=== PATIENT | male | born 1950 | race Caucasian/White ===

== ENCOUNTER 2016-10-22 20:22 | Inpatient (IN) | payer OTHER ==
[2016-10-22 20:53] VITALS: BMI 31.1
--- NOTE | 2016-10-22 20:53 | HP ---
CIWA Score - CIWA Score Nausea/Vomitin Muscle Tremors: 3 Anxiety: 3 Agitation: 2 Paroxysmal Sweats: 2 Orientation: 0-Oriented Tacttile Disturbances: 0-None Auditory Disturbances: 0-None Visual Disturbances: 0-None Headache: 1-Very Mild CIWA-Ar Total Score: 13 Admission ROS BHS - HPI Chief Complaint: WITHDRAWAL SYMPTOMS Allergies/Adverse Reactions: Allergies Allergy/AdvReac Type Severity Reaction Status Date / Time Penicillins Allergy Severe Swelling Verified 10/22/16 21:39 History of Present Illness: 66 Y.O. MAN WITH AN EXTENSIVE HISTORY OF ALCOHOL DEPENDENCE IS SEEKING DETOX. HE HAS COMPLETED MULTIPLE DETOXES AND REHABS AND STATES HE HAS HAD A HISTORY OF 11 YEARS OF SOBRIETY. Exam Limitations: No Limitations - Ebola screening Have you traveled outside of the country in the last 21 days: No (N) Have you had contact with anyone from an Ebola affected area: No Do you have a fever: No - Review of Systems Constitutional: Night Sweats EENT: reports: No Symptoms Reported Respiratory: reports: Cough, Wheezing, Productive cough Cardiac: reports: No Symptoms Reported GI: reports: No Symptoms Reported : reports: No Symptoms Reported Musculoskeletal: reports: No Symptoms Reported Integumentary: reports: No Symptoms Reported Neuro: reports: Tremors Endocrine: reports: No Symptoms Reported Hematology: reports: No Symptoms Reported Psychiatric: reports: Orientated x3, Depressed Other Systems: Reviewed and Negative Patient History - Patient Medical History Hx Anemia: No Hx Asthma: No Hx Chronic Obstructive Pulmonary Disease (COPD): Yes Hx Cancer: No Hx Cardiac Disorders: No Hx Congestive Heart Failure: No Hx Hypertension: No Hx Hypercholesterolemia: No Hx Pacemaker: No HX Cerebrovascular Accident: No Hx Seizures: No Hx Dementia: No Hx Diabetes: No Hx Gastrointestinal Disorders: No Hx Liver Disease: No Hx Genitourinary Disorders: No Hx Sexually Transmitted Disorders: No Hx Renal Disease (ESRD): No Hx Thyroid Disease: No Hx Human Immunodeficiency Virus (HIV): No (12/22 LAST NEGATIVE) Hx Hepatitis C: No Hx Depression: Yes Hx Suicide Attempt: No Hx Bipolar Disorder: No Hx Schizophrenia: No - Patient Surgical History Past Surgical History: Yes Hx Neurologic Surgery: No Hx Cataract Extraction: No Hx Cardiac Surgery: No Hx Lung Surgery: No Hx Breast Surgery: No Hx Breast Biopsy: No Hx Abdominal Surgery: No Hx Appendectomy: No Hx Cholecystectomy: No Hx Genitourinary Surgery: No Hx Section: No Hx Orthopedic Surgery: Yes (Right knee replacement in 12/17) Anesthesia Reaction: No - PPD History Previous Implant?: Yes Documented Results: Negative w/proof Implanted On Prior [facility] Admission?: Yes Date: 03/21/16 Results: 0MM PPD to be Administered?: No - Reproductive History Patient is a Female of Child Bearing Age (11 -55 yrs old): No - Smoking Cessation Smoking history: Current every day smoker Have you smoked in the past 12 months: Yes Aproximately how many cigarettes per day: 8 Cigars Per Day: 0 Hx Chewing Tobacco Use: No Initiated information on smoking cessation: Yes 'Breaking Loose' booklet given: 10/22/16 - Substance & Tx. History Hx Alcohol Use: Yes Hx Substance Use: No Substance Use Type: Alcohol Hx Substance Use Treatment: Yes (DETOX AND REHAB ) - Substances Abused Alcohol Route: Oral Frequency: Daily Amount used: 2 GLASS OF WINE; NIPS OF LIQUOR; 5-6 12 OZ OF BEER Age of first use: 16 Date of Last Use: 10/22/16 Family Disease History - Family Disease History Family Disease History: Heart Disease: Grandparent (ALCOHOLISM), Mother, CA: Grandparent, Respiratory: Father (COPD), Other: Grandparent, Sister Admission Physical Exam BHS - Vital Signs Vital Signs: Last Vital Signs Temp Pulse Resp BP Pulse Ox 96.4 F L 90 20 115/79 10/22/16 20:44 10/22/16 20:44 10/22/16 20:44 10/22/16 20:44 - Physical General Appearance: Yes: Disheveled, Tremorous HEENTM: Yes: Hearing grossly Normal, Normal ENT Inspection, Normocephalic, Normal Voice Respiratory: Yes: No Respiratory Distress, No Accessory Muscle Use, Wheezing, Expiration Neck: Yes: Within Normal Limits, Trachea in good position Breast: Yes: Breast Exam Deferred Cardiology: Yes: Regular Rhythm, Regular Rate, S1, S2 Abdominal: Yes: Normal Bowel Sounds, Non Tender, Flat, Soft Genitourinary: Yes: Within Normal Limits Back: Yes: Normal Inspection Musculoskeletal: Yes: full range of Motion, Gait Steady, Pelvis Stable Extremities: Yes: Normal Capillary Refill, Normal Inspection, Tremors Neurological: Yes: Fully Oriented, Alert, Normal Mood/Affect, Normal Response Integumentary: Yes: Normal Color, Dry, Warm Lymphatic: Yes: Within Normal Limits - Diagnostic (1) Alcohol dependence with uncomplicated withdrawal Current Visit: Yes Status: Chronic (2) Nicotine dependence, cigarettes, uncomplicated Current Visit: Yes Status: Chronic (3) History of COPD Current Visit: Yes Status: Chronic (4) Abnormal cardiac sounds Current Visit: Yes Status: Chronic Cleared for Admission S - Detox or Rehab [facility] Level of Care: Medically Managed Detox Regimen/Protocol: Librium S Breath Alcohol Content Breath Alcohol Content: 0
[2016-10-22] MEDS ORDERED: MENTHOL/PHENOL 1 EACH UD MM PRN (21:00)
[2016-10-22] MEDS ORDERED: IBUPROFEN 400 MG TABLET (FP) PO PRN (21:00)
[2016-10-22] MEDS ORDERED: hydrOXYzine PAMOATE 50 MG CAPSULE (FP) PO PRN (21:00)
[2016-10-22] MEDS ORDERED: ACETAMINOPHEN 325 MG TABLET (FP) PO PRN (21:00)
[2016-10-22] MEDS ORDERED: MAG HYDROX/AL HYDROX/SIMETH 30 ML UNIT-DOSE CUP PO PRN (21:00)
[2016-10-22] MEDS ORDERED: LOPERAMIDE HCL 2 MG CAPSULE PO PRN (21:00)
[2016-10-22] MEDS ORDERED: MAGNESIUM CITRATE 300 ML BOTTLE PO PRN (21:00)
[2016-10-22] MEDS ORDERED: guaiFENesin/D-METHORPHAN HB 10 ML UNIT-DOSE CUPS PO PRN (21:00)
[2016-10-22] MEDS ORDERED: chlordiazePOXIDE HCL 25 MG CAPSULE PO PRN (21:00)
[2016-10-22] MEDS ORDERED: chlordiazePOXIDE HCL 25 MG CAPSULE PO ONE (21:00)
[2016-10-22] MEDS ORDERED: P-EPHED 60MG/TRIPROLIDI 2.5MG TABLET PO PRN (21:00)
[2016-10-22] MEDS ORDERED: MAGNESIUM HYDROX 2400MG/30ML ORAL SUSPENSION 30 ML CUP PO PRN (21:00)
[2016-10-22] MEDS: chlordiazePOXIDE HCL 25 MG CAPSULE PO SCH (22:45)
[2016-10-22] MEDS: diphenhydrAMINE HCL 50 MG CAPSULE PO PRN (22:45)
[2016-10-22] MEDS: THIAMINE HCL 100 MG TABLET (FP) PO SCH (22:46)
[2016-10-22 22:49] LABS: URINE APPEARANCE CLEAR; URINE BILIRUBIN NEGATIVE (NEGATIVE); URINE COLOR STRAW; URINE GLUCOSE (UA) NEGATIVE (NEGATIVE); URINE KETONE NEGATIVE (NEGATIVE); URINE LEUK ESTERASE NEGATIVE (NEGATIVE); URINE NITRITE NEGATIVE (NEGATIVE); URINE PROTEIN NEGATIVE (NEGATIVE); URINE UROBILINOGEN NEGATIVE E.U./dl (0.2-1.0)
[2016-10-22 22:51] LABS: URINE BLOOD 1+ (NEGATIVE)
[2016-10-22 22:59] LABS: URINE RBC 1 /hpf (0-3); URINE WBC <1 /hpf (3-5)
[2016-10-23] MEDS: chlordiazePOXIDE HCL 25 MG CAPSULE PO SCH ×4 (05:34→22:08)
[2016-10-23 09:47] LABS: MCH 31.1 pg (25.7-33.7); MCHC 33.1 g/dl (32.0-35.9); MEAN CELL VOLUME 93.9 fl (80-96); MEAN PLT VOLUME 9.7 fl (7.5-11.1); PLATELET COUNT 157 K/MM3 (134-434); RDW 13.4 % (11.9-15.9); WHITE BLOOD COUNT 8.8 K/mm3 (4.0-10.0)
--- NOTE | 2016-10-23 10:46 | EKG ---
Test Reason : Blood Pressure : / mmHG Vent. Rate : 071 BPM Atrial Rate : 071 BPM P-R Int : 160 ms QRS Dur : 074 ms QT Int : 354 ms P-R-T Axes : 072 005 061 degrees QTc Int : 384 ms SINUS RHYTHM WITH OCCASIONAL PREMATURE VENTRICULAR COMPLEXES SEPTAL INFARCT , AGE UNDETERMINED ABNORMAL ECG NO PREVIOUS ECGS AVAILABLE Confirmed by CATRACHO PEDERSEN MD ([id number]) on 10/23/2016 10:45:56 AM Referred By: Confirmed By:CATRACHO PEDERSEN MD
[2016-10-23 10:54] LABS: ALBUMIN 3.5 g/dl (3.4-5.0); ALK PHOS 35 U/L (45-117); ANION GAP 13 (8-16); BILIRUBIN,TOTAL 0.2 mg/dL (0.2-1.0); CALCIUM 8.8 mg/dL (8.5-10.1); CO2 26 mmol/L (21-32); CREATININE 0.9 mg/dL (0.7-1.3); GLUCOSE,RANDOM 90 mg/dL (74-106); SGOT/AST 15 U/L (15-37); SGPT/ALT 26 U/L (12-78); TOT PROT 6.2 g/dl (6.4-8.2)
[2016-10-23] MEDS: PRENATAL VITAMINS W/ FOLIC ACID TABLET (FP) PO SCH (10:59)
--- NOTE | 2016-10-23 11:49 | PN ---
BHS CIWA - CIWA Score Nausea/Vomitin Muscle Tremors: 3 Anxiety: 2 Agitation: 2 Paroxysmal Sweats: 3 Orientation: 0-Oriented Tacttile Disturbances: 1-Very Mild Itch/Numbness Auditory Disturbances: 0-None Visual Disturbances: 0-None Headache: 0-None Present CIWA-Ar Total Score: 13 BHS Progress Note (SOAP) Subjective: interrupted sleep, shakes Objective: 10/23/16 11:48 Vital Signs Temperature 98.2 F 10/23/16 10:04 Pulse Rate 76 10/23/16 10:04 Respiratory Rate 16 10/23/16 10:04 Blood Pressure 140/73 10/23/16 10:04 O2 Sat by Pulse Oximetry (%) Laboratory Tests 10/22/16 10/23/16 10/23/16 22:40 07:00 07:00 WBC 8.8 RBC 4.42 Hgb 13.7 Hct 41.5 MCV 93.9 MCHC 33.1 RDW 13.4 Plt Count 157 MPV 9.7 Sodium 142 Potassium 4.1 Chloride 103 Carbon Dioxide 26 Anion Gap 13 BUN 22 H D Creatinine 0.9 Creat Clearance w eGFR > 60 Random Glucose 90 Calcium 8.8 Total Bilirubin 0.2 D AST 15 ALT 26 D Alkaline Phosphatase 35 L D Total Protein 6.2 L Albumin 3.5 Urine Color Straw Urine Appearance Clear Urine pH 6.0 Ur Specific [place] 1.010 Urine Protein Negative Urine Glucose (UA) Negative Urine Ketones Negative Urine Blood 1+ H Urine Nitrite Negative Urine Bilirubin Negative Urine Urobilinogen Negative Ur Leukocyte Esterase Negative Urine RBC 1 Urine WBC <1 pt aox3 in nad ambulating Assessment: 10/23/16 11:48 withdrawl sx;s Plan: cont. detox increase fluids prn librium
--- NOTE | 2016-10-23 15:30 | CONSULT ---
[facility] Psychiatric Consult - Data Date of interview: 10/23/16 Admission source: [facility] Identifying data: Readmission to [facility] for this 65 y/o male seeking detox treatment on for alcohol dependence.Patient is ,a father of one,domiciled,unemployed and supported on SSD benefits (knee replacement). Substance Abuse History: - Smoking Cessation. Smoking history: Current every day smoker. Have you smoked in the past 12 months: Yes. Aproximately how many cigarettes per day: 8. Cigars Per Day: 0. Hx Chewing Tobacco Use: No. Initiated information on smoking cessation: Yes. 'Breaking Loose' booklet given : 10/22/16. - Substance & Tx. History. Hx Alcohol Use: Yes. Hx Substance Use : No. Substance Use Type: Alcohol. Hx Substance Use Treatment: Yes (DETOX AND REHAB ). - Substances Abused. Alcohol. Route: Oral. Frequency: Daily. Amount used: 2 GLASS OF WINE; NIPS OF LIQUOR; 5-6 12 OZ OF BEER. Age of first use: 16. Date of Last Use: 10/22/16. Confirmed by patient. Medical History: COPD and a history of right knee replacement. Psychiatric History: No history of psychiatric hospitalizations.Diagnosed with depression and anxiety for several years (since his late 20's).Mr Morataya is no longer followed by a psychiatrist,Dr Bryant (patient dropped out of [facility] care).Off psychotropic medications (own decision).Patient denies history of suicide attempts. Physical/Sexual Abuse/Trauma History: Patient denies. Mental Status Exam - Mental Status Exam Alert and Oriented to: Time, Place, Person Cognitive Function: Good Patient Appearance: Well Groomed Mood: Withdrawn Affect: Normal Range Patient Behavior: Fatigued, Appropriate, Cooperative Speech Pattern: Clear, Appropriate Voice Loudness: Normal Thought Process: Goal Oriented Thought Disorder: Not Present Hallucinations: Denies Suicidal Ideation: Denies Homicidal Ideation: Denies Insight/Judgement: Poor Sleep: Poorly, Difficulty falling asleep Appetite: Good Muscle strength/Tone: Normal Gait/Station: Normal Psychiatric Findings - Problem List ([place] 1, 2,3) (1) Alcohol dependence with uncomplicated withdrawal Current Visit: Yes Status: Acute (2) Nicotine dependence, cigarettes, uncomplicated Current Visit: Yes Status: Acute (3) Drug-induced mood disorder Current Visit: Yes Status: Acute (4) Nicotine dependence Current Visit: Yes Status: Acute Qualifiers: Nicotine product type: cigarettes Substance use status: uncomplicated Qualified Code(s): F17.210 - Nicotine dependence, cigarettes, uncomplicated Comment: . (5) Alcohol-induced sleep disorder Current Visit: Yes Status: Chronic (6) History of COPD Current Visit: Yes Status: Chronic (7) Status post total right knee replacement Current Visit: Yes Status: Chronic Comment: . - Initial Treatment Plan Initial Treatment Plan: Psychoeducation.Detoxification.Observation.Zolpidem 5 mg po hs prn.Patient is made aware of risk of parasomnias.He is in agreement with this plan.
[2016-10-23] MEDS: THIAMINE HCL 100 MG TABLET (FP) PO SCH (22:07)
[2016-10-23] MEDS: ZOLPIDEM TARTRATE 5 MG TABLET PO PRN (22:07)
[2016-10-24] MEDS: chlordiazePOXIDE HCL 25 MG CAPSULE PO SCH ×3 (05:39→17:34)
[2016-10-24] MEDS: PRENATAL VITAMINS W/ FOLIC ACID TABLET (FP) PO SCH (10:40)
--- NOTE | 2016-10-24 10:54 | PN ---
S CIWA - CIWA Score Nausea/Vomitin-No Nausea/No Vomiting Muscle Tremors: 4-Moderate,w/Arms Extend Anxiety: 3 Agitation: 2 Paroxysmal Sweats: 2 Orientation: 0-Oriented Tacttile Disturbances: 0-None Auditory Disturbances: 0-None Visual Disturbances: 0-None Headache: 0-None Present CIWA-Ar Total Score: 11 S Progress Note (SOAP) Subjective: shakes sweats agitation Objective: 10/24/16 10:53 Vital Signs Temperature 97.2 F L 10/24/16 10:17 Pulse Rate 69 10/24/16 10:17 Respiratory Rate 18 10/24/16 10:17 Blood Pressure 130/74 10/24/16 10:17 O2 Sat by Pulse Oximetry (%) Laboratory Tests 10/22/16 10/23/16 10/23/16 22:40 07:00 07:00 WBC 8.8 RBC 4.42 Hgb 13.7 Hct 41.5 MCV 93.9 MCHC 33.1 RDW 13.4 Plt Count 157 MPV 9.7 Sodium 142 Potassium 4.1 Chloride 103 Carbon Dioxide 26 Anion Gap 13 BUN 22 H D Creatinine 0.9 Creat Clearance w eGFR > 60 Random Glucose 90 Calcium 8.8 Total Bilirubin 0.2 D AST 15 ALT 26 D Alkaline Phosphatase 35 L D Total Protein 6.2 L Albumin 3.5 Urine Color Straw Urine Appearance Clear Urine pH 6.0 Ur Specific [place] 1.010 Urine Protein Negative Urine Glucose (UA) Negative Urine Ketones Negative Urine Blood 1+ H Urine Nitrite Negative Urine Bilirubin Negative Urine Urobilinogen Negative Ur Leukocyte Esterase Negative Urine RBC 1 Urine WBC <1 RPR Titer 10/23/16 07:00 WBC RBC Hgb Hct MCV MCHC RDW Plt Count MPV Sodium Potassium Chloride Carbon Dioxide Anion Gap BUN Creatinine Creat Clearance w eGFR Random Glucose Calcium Total Bilirubin AST ALT Alkaline Phosphatase Total Protein Albumin Urine Color Urine Appearance Urine pH Ur Specific [place] Urine Protein Urine Glucose (UA) Urine Ketones Urine Blood Urine Nitrite Urine Bilirubin Urine Urobilinogen Ur Leukocyte Esterase Urine RBC Urine WBC RPR Titer Nonreactive awake/alert ambulating no acute distress Assessment: 10/24/16 10:53 withdrawal sx Plan: continue detox increase fluids
[2016-10-24] MEDS: THIAMINE HCL 100 MG TABLET (FP) PO SCH (22:43)
[2016-10-24] MEDS: ZOLPIDEM TARTRATE 5 MG TABLET PO PRN (22:43)
[2016-10-24] MEDS: chlordiazePOXIDE 5 MG CAPSULE PO SCH (22:43)
[2016-10-25] MEDS: chlordiazePOXIDE 5 MG CAPSULE PO SCH ×3 (05:14→17:41)
[2016-10-25] MEDS: PRENATAL VITAMINS W/ FOLIC ACID TABLET (FP) PO SCH (10:22)
[2016-10-25] MEDS: THIAMINE HCL 100 MG TABLET (FP) PO SCH (21:55)
[2016-10-25] MEDS: diphenhydrAMINE HCL 50 MG CAPSULE PO PRN (21:56)
--- NOTE | 2016-10-25 22:49 | PN ---
[facility] Progress Note Note: informed patient been transferred from detox to rehab while on librium protocol case discuss with biomedical manager, discontinue librium protocol, vital signs daily will continue monitor
[2016-10-25] MEDS ORDERED: hydrOXYzine PAMOATE 50 MG CAPSULE (FP) PO PRN (22:55)
[2016-10-25] MEDS ORDERED: chlordiazePOXIDE HCL 10 MG CAPSULE PO SCH (23:00)
[2016-10-26] MEDS: PRENATAL VITAMINS W/ FOLIC ACID TABLET (FP) PO SCH (09:32)
--- NOTE | 2016-10-26 10:17 | HP ---
Psychiatrist Admission - Data Date of interview: 10/26/16 Admission source: 6N Identifying data: This is the third 5N inpatient rehabilitation admission for this 66 year old male, a father of one,domiciled, unemployed and supported on SSD benefits (knee replacement). Medical History: COPD, Right knee replacement in 12/2009, Gastritis, allergic to penicillins. Smokes 8 cigarettes a day. Psychiatric History: Patient reports past history of depression and anxiety, reports first psychiatric treatment in 2003, saw the psychiatrist to address depression related to major life stressors as lossing job and going through divorce process, lossing apartment on [facility], was tx with Cymbalta, Seroquel not on medications now. While in detox seen by was put on Ambien 5 mg po hs. Patient reports no history of psychiatric hospitalizations. Vital Signs: Vital Signs - 24 hr 10/25/16 10/26/16 10/26/16 14:03 03:30 06:43 Temperature 97.3 F L 97.8 F Pulse Rate 67 60 Respiratory 18 18 18 Rate Blood Pressure 133/71 107/61 Allergies/Adverse Reactions: Allergies Allergy/AdvReac Type Severity Reaction Status Date / Time Penicillins Allergy Severe Swelling Verified 10/22/16 21:39 Date of last physical exam: 10/22/16 Concur with the findings of this exam: Yes - Substance Abuse/Tx History Hx Alcohol Use: Yes Hx Substance Use: No Substance Use Type: Alcohol (2 glasses of wine, beer 2-6 cans daily) Mental Status Exam - Mental Status Exam Alert and Oriented to: Time, Place, Person Cognitive Function: Grossly Intact Patient Appearance: Well Groomed Mood: Sad Affect: Appropriate, Mood Congruent Patient Behavior: Appropriate, Cooperative Speech Pattern: Clear, Appropriate Voice Loudness: Normal Thought Process: Goal Oriented Thought Disorder: Not Present Hallucinations: Denies Suicidal Ideation: Denies Homicidal Ideation: Denies Insight/Judgement: Fair Sleep: Fair Appetite: Fair Muscle strength/Tone: Normal Gait/Station: Normal Psychiatric Findings - Problem List ([place] 1, 2,3) (1) Nicotine dependence Current Visit: Yes Status: Acute Qualifiers: Nicotine product type: cigarettes Substance use status: uncomplicated Qualified Code(s): F17.210 - Nicotine dependence, cigarettes, uncomplicated Comment: . (2) Alcohol dependence Current Visit: No Status: Chronic Qualifiers: Substance use status: alcohol-induced sleep disorder Qualified Code(s) : F10.282 - Alcohol dependence with alcohol-induced sleep disorder Comment: . - Initial Treatment Plan Initial Treatment Plan: will monitor progress as needed.
[2016-10-26] MEDS: diphenhydrAMINE HCL 50 MG CAPSULE PO PRN (21:49)
[2016-10-26] MEDS: THIAMINE HCL 100 MG TABLET (FP) PO SCH (21:49)
[2016-10-27] MEDS: PRENATAL VITAMINS W/ FOLIC ACID TABLET (FP) PO SCH (09:34)
[2016-10-27] MEDS: THIAMINE HCL 100 MG TABLET (FP) PO SCH (21:46)
[2016-10-27] MEDS: diphenhydrAMINE HCL 50 MG CAPSULE PO PRN (21:47)
[2016-10-28] MEDS: PRENATAL VITAMINS W/ FOLIC ACID TABLET (FP) PO SCH (09:51)
[2016-10-28] MEDS: THIAMINE HCL 100 MG TABLET (FP) PO SCH (21:35)
[2016-10-28] MEDS: diphenhydrAMINE HCL 50 MG CAPSULE PO PRN (21:35)
[2016-10-29] MEDS: PRENATAL VITAMINS W/ FOLIC ACID TABLET (FP) PO SCH (09:30)
[2016-10-29] MEDS: diphenhydrAMINE HCL 50 MG CAPSULE PO PRN (22:05)
[2016-10-29] MEDS: THIAMINE HCL 100 MG TABLET (FP) PO SCH (22:05)
[2016-10-30] MEDS: PRENATAL VITAMINS W/ FOLIC ACID TABLET (FP) PO SCH (09:29)
[2016-10-30] MEDS: THIAMINE HCL 100 MG TABLET (FP) PO SCH (21:46)
[2016-10-30] MEDS: diphenhydrAMINE HCL 50 MG CAPSULE PO PRN (21:46)
[2016-10-30] MEDS: ALBUTEROL SO4 2.5/IPRATROPIUM 0.5 INH SOL 3 ML VIAL.NEB. NEB PRN (23:38)
[2016-10-31] MEDS: ALBUTEROL SO4 2.5/IPRATROPIUM 0.5 INH SOL 3 ML VIAL.NEB. NEB PRN (07:26)
[2016-10-31] MEDS: PRENATAL VITAMINS W/ FOLIC ACID TABLET (FP) PO SCH (09:33)
--- NOTE | 2016-10-31 15:15 | PN ---
Psychiatric Progress Note Vital Signs: Vital Signs Period Temp Pulse Resp BP Sys/Mackey Pulse Ox Last 24 Hr 97.3 F 54-75 15-16 121/74 Date of Session: 10/31/16 Chief Complaint:: Discharge visit HPI: Patient addressed Alcohol dependence . ROS: Status post total knee replacement,COPD. Current Medications: Active Medications Generic Name Dose Route Start Last Admin Trade Name Freq PRN Reason Stop Dose Admin Acetaminophen 650 mg 10/22/16 21:00 Tylenol - PO Q4H PRN FEVER OR PAIN Al Hydroxide/Mg Hydroxide 30 ml 10/22/16 21:00 Mylanta Oral Suspension - PO Q6H PRN DYSPEPSIA Albuterol/Ipratropium 1 amp 10/22/16 21:17 10/31/16 07:26 Duoneb - NEB 1 amp Q6H PRN Administration SHORTNESS OF BREATH Diphenhydramine HCl 50 mg 10/22/16 21:00 10/30/16 21:46 Benadryl - PO 50 mg HSMR1 PRN Administration INSOMNIA Eucalyptus/Menthol/Phenol/Sorbitol 1 each 10/22/16 21:00 Cepastat Lozenge - MM Q4H PRN SORE THROAT Guaifenesin 10 ml 10/22/16 21:00 Robitussin Dm - PO Q6H PRN COUGH Hydroxyzine Pamoate 50 mg 10/22/16 21:00 Vistaril - PO Q4H PRN AGITATION Ibuprofen 400 mg 10/22/16 21:00 Motrin - PO Q6H PRN SEVERE PAIN Loperamide HCl 4 mg 10/22/16 21:00 Imodium - PO Q6H PRN DIARRHEA Magnesium Citrate 300 ml 10/22/16 21:00 Citroma - PO Q48H PRN CONSTIPATION Magnesium Hydroxide 30 ml 10/22/16 21:00 Milk Of Magnesia - PO DAILY PRN CONSTIPATION Multivit/Folic Acid/Iron 1 tab 10/23/16 10:00 10/31/16 09:33 Vitamins (Sjr) - PO 1 tab DAILY TRISTIN Administration Pseudoephedrine/Triprolidine 1 combo 10/22/16 21:00 Actifed - PO TID PRN NASAL CONGESTION Thiamine HCl 100 mg 10/22/16 22:00 10/30/16 21:46 Vitamin B1 - PO 100 mg HS TRISTIN Administration Current Side Effect: No Lab tests ordered: No Lab tests reviewed: Yes Provider note:: Patient will complete this program tomorrow 11/01/16(early discharge).He has met his treatment goals partially and will continue to address his issues on outpatient basis at [facility]. Supportive therapy provided including discussion of support system,coping skills utlilization ro maintain recovery. Patient is stable for discharge tomorrow 11/01/16. Total face to face time:: 30 Mental Status Exam - Mental Status Exam Alert and Oriented to: Time, Place, Person Cognitive Function: Grossly Intact Patient Appearance: Unkempt Mood: Euthymic Affect: Appropriate, Mood Congruent Patient Behavior: Cooperative Speech Pattern: Clear Voice Loudness: Normal Thought Process: Goal Oriented Thought Disorder: Not Present Hallucinations: Denies Suicidal Ideation: Denies Homicidal Ideation: Denies Insight/Judgement: Fair Sleep: Fair Appetite: Good Muscle strength/Tone: Normal Gait/Station: Normal Psychiatric Treatment Plan - Problem List (1) Alcohol dependence with uncomplicated withdrawal Current Visit: Yes (2) Drug-induced mood disorder Current Visit: Yes (3) Nicotine dependence Current Visit: Yes Qualifiers: Nicotine product type: cigarettes Substance use status: uncomplicated Qualified Code(s): F17.210 - Nicotine dependence, cigarettes, uncomplicated Comment: . (4) History of COPD Current Visit: Yes (5) Status post total right knee replacement Current Visit: Yes Comment: .
[2016-10-31] MEDS: THIAMINE HCL 100 MG TABLET (FP) PO SCH (21:45)
[2016-10-31] MEDS: diphenhydrAMINE HCL 50 MG CAPSULE PO PRN (21:45)
[2016-11-01 06:48] VITALS: BP 140/78; PULSE 58; TEMP 97.2
[2016-11-01] MEDS: PRENATAL VITAMINS W/ FOLIC ACID TABLET (FP) PO SCH (09:55)
== END 2016-11-01 08:30 | disposition home or self-care (01) | DRG 895 ==
LOC: YASAS 20:22 → UNDOADMIN 21:22 → Y6N 21:22 → UNDOADMIN 10-25 18:17 → Y5N 10-25 18:17 → UNDODISIN 11-01 08:30
PROVIDERS: ADMIT Internal Medicine Addiction Medicine; ATTEND Psychiatry & Neurology Psychiatry
PROC: HZ2ZZZZ Detoxification Services for Substance Abuse Treatment (ICD-10-PCS; principal; 2016-10-22)
PROC: HZ42ZZZ Group Counseling for Substance Abuse Treatment, Cognitive-Behavioral (ICD-10-PCS; 2016-10-26)
DX: F19.230 Other psychoactive substance dependence with withdrawal, uncomplicated (principal); F10.230 Alcohol dependence with withdrawal, uncomplicated; F10.282 Alcohol dependence with alcohol-induced sleep disorder; F17.210 Nicotine dependence, cigarettes, uncomplicated; F19.24 Other psychoactive substance dependence with psychoactive substance-induced mood disorder; Z96.651 Presence of right artificial knee joint; Z87.09 Personal history of other diseases of the respiratory system; Z59.0 Homelessness
CPT/HCPCS: 36415; 80053; 81003; 81015; 85027; 86593; 93005; 93010; 94640

== ENCOUNTER 2017-03-30 10:33 | Inpatient (IN) | payer OTHER ==
[2017-03-30 10:56] VITALS: BMI 37.4
--- NOTE | 2017-03-30 11:19 | HP ---
CIWA Score - CIWA Score Nausea/Vomitin-Mild Nausea/No Vomiting Muscle Tremors: 4-Moderate,w/Arms Extend Anxiety: 4-Mod. Anxious/Guarded Agitation: 0-Normal Activity Paroxysmal Sweats: 1-Minimal Palms Moist Orientation: 1-Uncertain about Date Tacttile Disturbances: 0-None Auditory Disturbances: 1-Very Mild Visual Disturbances: 1-Very Mild Sensitivity Headache: 2-Mild CIWA-Ar Total Score: 15 Admission ROS BHS - HPI Chief Complaint: I need to stop drinking, it's a long story Allergies/Adverse Reactions: Allergies Allergy/AdvReac Type Severity Reaction Status Date / Time Penicillins Allergy Severe Swelling Verified 10/22/16 21:39 History of Present Illness: 66 yo gentleman here for detox from alcohol, previously here oct 2016, denies seizures but does have black outs. Exam Limitations: Clinical Condition - Ebola screening Have you traveled outside of the country in the last 21 days: No Have you had contact with anyone from an Ebola affected area: No Have you been sick,other than usual withdrawal symptoms: No Do you have a fever: No - Review of Systems Constitutional: Loss of Appetite, Malaise, Changes in sleep, Weakness EENT: reports: Blurred Vision Respiratory: reports: SOB with Exertion Cardiac: reports: No Symptoms Reported GI: reports: No Symptoms Reported : reports: Frequency Integumentary: reports: Dryness Neuro: reports: Headache, Tremors Endocrine: reports: No Symptoms Reported Hematology: reports: No Symptoms Reported Psychiatric: reports: Judgement Intact, Mood/Affect Appropiate, Orientated x3, Anxious Other Systems: Reviewed and Negative Patient History - Patient Medical History Hx Anemia: No Hx Asthma: No Hx Chronic Obstructive Pulmonary Disease (COPD): Yes Hx Cancer: No Hx Cardiac Disorders: No Hx Congestive Heart Failure: No Hx Hypertension: No Hx Hypercholesterolemia: No Hx Pacemaker: No HX Cerebrovascular Accident: No Hx Seizures: No Hx Dementia: No Hx Diabetes: No Hx Gastrointestinal Disorders: No Hx Liver Disease: No Hx Genitourinary Disorders: No Hx Sexually Transmitted Disorders: No Hx Renal Disease (ESRD): No Hx Thyroid Disease: No Hx Human Immunodeficiency Virus (HIV): No Hx Hepatitis C: No Hx Depression: Yes (with anxiety - never hospitalized) Hx Suicide Attempt: No Hx Bipolar Disorder: No Hx Schizophrenia: No - Patient Surgical History Past Surgical History: Yes Hx Neurologic Surgery: No Hx Cataract Extraction: No Hx Cardiac Surgery: No Hx Lung Surgery: No Hx Breast Surgery: No Hx Breast Biopsy: No Hx Abdominal Surgery: No Hx Appendectomy: No Hx Cholecystectomy: No Hx Genitourinary Surgery: No Hx Section: No Hx Orthopedic Surgery: Yes (Right knee replacement in 12/17) Anesthesia Reaction: No - PPD History Previous Implant?: Yes Documented Results: Negative w/proof Date: 03/21/16 Results: 0MM PPD to be Administered?: Yes - Reproductive History Patient is a Female of Child Bearing Age (11 -55 yrs old): No (male) - Smoking Cessation Smoking history: Current every day smoker Have you smoked in the past 12 months: Yes Aproximately how many cigarettes per day: 8 Cigars Per Day: 0 Hx Chewing Tobacco Use: No Initiated information on smoking cessation: Yes 'Breaking Loose' booklet given: 03/30/17 (given on floor) - Substance & Tx. History Hx Alcohol Use: Yes Hx Substance Use: No Substance Use Type: Alcohol Hx Substance Use Treatment: Yes (detox,) - Substances Abused Alcohol Route: Oral Frequency: Daily Amount used: 1/5 bourbon Age of first use: 16 Date of Last Use: 03/30/17 Family Disease History - Family Disease History Family Disease History: Heart Disease: Grandparent (grandfather etoh, ), Father (, COPD), Mother (, RA), [place]: Grandparent, Respiratory: Father, Other: Grandparent, Mother, Sister (alive, healthy, etoh), Daughter (one,living , healthy) Admission Physical Exam [facility] - Vital Signs Vital Signs: Vital Signs - 24 hr 03/30/17 10:54 Temperature 97.2 F L Pulse Rate 61 Respiratory 18 Rate Blood Pressure 111/74 - Physical General Appearance: Yes: Nourished, Appropriately Dressed, Mild Distress, Tremorous, Anxious HEENTM: Yes: Hearing grossly Normal, Normal ENT Inspection, Normocephalic, Normal Voice, Pharynx Normal Respiratory: Yes: Normal Breath Sounds, No Respiratory Distress Neck: Yes: No masses,lesions,Nodules, Supple Breast: Yes: Breast Exam Deferred Cardiology: Yes: Regular Rhythm, Regular Rate Abdominal: Yes: Soft, Protuberent Genitourinary: Yes: Frequency Back: Yes: Normal Inspection Musculoskeletal: Yes: full range of Motion, Gait Steady Extremities: Yes: Normal Inspection, Normal Range of Motion, Non-Tender Neurological: Yes: Alert, Motor Strength 5/5, Normal Mood/Affect, Normal Response Integumentary: Yes: Normal Color, Warm Lymphatic: Yes: Within Normal Limits - Diagnostic (1) Alcohol dependence with uncomplicated withdrawal Current Visit: Yes Status: Chronic (2) Nicotine dependence Current Visit: Yes Status: Chronic Qualifiers: Nicotine product type: cigarettes Substance use status: uncomplicated Qualified Code(s): F17.210 - Nicotine dependence, cigarettes, uncomplicated Comment: . (3) History of COPD Current Visit: Yes Status: Chronic Cleared for Admission [facility] - Detox or Rehab [facility] Level of Care: Medically Managed Detox Regimen/Protocol: Librium [facility] Breath Alcohol Content Breath Alcohol Content: 0 Urine Drug Screen - Results Drug Screen Negative: Yes
[2017-03-30] MEDS ORDERED: MAG HYDROX/AL HYDROX/SIMETH 30 ML UNIT-DOSE CUP PO PRN (11:24)
[2017-03-30] MEDS ORDERED: NICOTINE POLACRILEX 4 MG GUM BUC PRN (11:24)
[2017-03-30] MEDS ORDERED: ACETAMINOPHEN 325 MG TABLET (FP) PO PRN (11:24)
[2017-03-30] MEDS ORDERED: P-EPHED 60MG/TRIPROLIDI 2.5MG TABLET PO PRN (11:24)
[2017-03-30] MEDS ORDERED: MAGNESIUM CITRATE 300 ML BOTTLE PO PRN (11:24)
[2017-03-30] MEDS ORDERED: LOPERAMIDE HCL 2 MG CAPSULE PO PRN (11:24)
[2017-03-30] MEDS ORDERED: guaiFENesin/D-METHORPHAN HB 10 ML UNIT-DOSE CUPS PO PRN (11:24)
[2017-03-30] MEDS ORDERED: MENTHOL/PHENOL 1 EACH UD MM PRN (11:24)
[2017-03-30] MEDS ORDERED: ALBUTEROL SO4 6.7 GM HFA INHALER IH PRN (11:27)
[2017-03-30] MEDS ORDERED: chlordiazePOXIDE HCL 25 MG CAPSULE PO ONE (13:00)
[2017-03-30 15:27] LABS: URINE APPEARANCE CLEAR; URINE BILIRUBIN NEGATIVE (NEGATIVE); URINE BLOOD NEGATIVE (NEGATIVE); URINE COLOR STRAW; URINE GLUCOSE (UA) NEGATIVE (NEGATIVE); URINE KETONE NEGATIVE (NEGATIVE); URINE LEUK ESTERASE NEGATIVE (NEGATIVE); URINE NITRITE NEGATIVE (NEGATIVE); URINE PROTEIN NEGATIVE (NEGATIVE); URINE UROBILINOGEN NEGATIVE mg/dL (0.2-1.0)
[2017-03-30] MEDS: chlordiazePOXIDE HCL 25 MG CAPSULE PO SCH ×2 (17:10→22:51)
[2017-03-30] MEDS: diphenhydrAMINE HCL 50 MG CAPSULE PO PRN (22:51)
[2017-03-30] MEDS: THIAMINE HCL 100 MG TABLET (FP) PO SCH (22:51)
[2017-03-31] MEDS: chlordiazePOXIDE HCL 25 MG CAPSULE PO SCH ×4 (05:23→22:25)
[2017-03-31 10:21] LABS: MCH 30.5 pg (25.7-33.7); MCHC 33.6 g/dl (32.0-35.9); MEAN CELL VOLUME 90.6 fl (80-96); MEAN PLT VOLUME 9.7 fl (7.5-11.1); PLATELET COUNT 127 K/MM3 (134-434); RDW 13.4 % (11.9-15.9); WHITE BLOOD COUNT 6.8 K/mm3 (4.0-10.0)
[2017-03-31] MEDS: PRENATAL VITAMINS W/ FOLIC ACID TABLET (FP) PO SCH (10:25)
[2017-03-31 10:43] LABS: ALBUMIN 3.3 g/dl (3.4-5.0); ANION GAP 6 (8-16); BILIRUBIN,TOTAL 0.5 mg/dL (0.2-1.0); CALCIUM 8.8 mg/dL (8.5-10.1); CO2 26 mmol/L (21-32); GLUCOSE,RANDOM 87 mg/dL (74-106); SGOT/AST 16 U/L (15-37); SGPT/ALT 28 U/L (12-78)
[2017-03-31 10:45] LABS: ALK PHOS 38 U/L (45-117); CREATININE 0.8 mg/dL (0.7-1.3)
--- NOTE | 2017-03-31 16:24 | PN ---
S CIWA - CIWA Score Nausea/Vomitin Muscle Tremors: 4-Moderate,w/Arms Extend Anxiety: 4-Mod. Anxious/Guarded Agitation: 4-Moderately Restless Paroxysmal Sweats: No Perspiration Orientation: 0-Oriented Tacttile Disturbances: 1-Very Mild Itch/Numbness Auditory Disturbances: 0-None Visual Disturbances: 0-None Headache: 3-Moderate CIWA-Ar Total Score: 19 BHS Progress Note (SOAP) Subjective: Sweating, chills, headache, anxious Objective: 03/31/17 16:23 Last Vital Signs Temp Pulse Resp BP Pulse Ox 97.0 F L 80 20 120/80 03/31/17 10:54 03/31/17 10:54 03/31/17 10:54 03/31/17 10:54 Laboratory Tests 03/30/17 03/31/17 03/31/17 13:10 07:40 07:40 WBC 6.8 RBC 4.82 Hgb 14.7 Hct 43.6 MCV 90.6 MCH 30.5 MCHC 33.6 RDW 13.4 Plt Count 127 L MPV 9.7 Sodium 140 Potassium 4.3 Chloride 108 H Carbon Dioxide 26 Anion Gap 6 L BUN 16 D Creatinine 0.8 Creat Clearance w eGFR > 60 Random Glucose 87 Calcium 8.8 Total Bilirubin 0.5 D AST 16 ALT 28 Alkaline Phosphatase 38 L Total Protein 6.0 L Albumin 3.3 L Urine Color Straw Urine Appearance Clear Urine pH 5.0 Ur Specific [place] 1.010 Urine Protein Negative Urine Glucose (UA) Negative Urine Ketones Negative Urine Blood Negative Urine Nitrite Negative Urine Bilirubin Negative Urine Urobilinogen Negative Ur Leukocyte Esterase Negative RPR Titer 03/31/17 07:40 WBC RBC Hgb Hct MCV MCH MCHC RDW Plt Count MPV Sodium Potassium Chloride Carbon Dioxide Anion Gap BUN Creatinine Creat Clearance w eGFR Random Glucose Calcium Total Bilirubin AST ALT Alkaline Phosphatase Total Protein Albumin Urine Color Urine Appearance Urine pH Ur Specific [place] Urine Protein Urine Glucose (UA) Urine Ketones Urine Blood Urine Nitrite Urine Bilirubin Urine Urobilinogen Ur Leukocyte Esterase RPR Titer Nonreactive Labs noted Assessment: 03/31/17 16:23 Withdrawal symptoms Plan: Continue detox Encouraged to drink lots of water for hydration
[2017-03-31] MEDS: THIAMINE HCL 100 MG TABLET (FP) PO SCH (22:25)
[2017-03-31] MEDS: MAGNESIUM HYDROX 2400MG/30ML ORAL SUSPENSION 30 ML CUP PO PRN (22:25)
[2017-03-31] MEDS: diphenhydrAMINE HCL 50 MG CAPSULE PO PRN (22:26)
[2017-04-01] MEDS: chlordiazePOXIDE HCL 25 MG CAPSULE PO SCH ×2 (05:29→10:29)
[2017-04-01] MEDS: MAGNESIUM HYDROX 2400MG/30ML ORAL SUSPENSION 30 ML CUP PO PRN (05:30)
[2017-04-01] MEDS: PRENATAL VITAMINS W/ FOLIC ACID TABLET (FP) PO SCH (10:29)
--- NOTE | 2017-04-01 10:50 | PN ---
[facility] CIWA - CIWA Score Nausea/Vomitin-Mild Nausea/No Vomiting Muscle Tremors: 3 Anxiety: 4-Mod. Anxious/Guarded Agitation: 3 Paroxysmal Sweats: 3 Orientation: 0-Oriented Tacttile Disturbances: 0-None Auditory Disturbances: 0-None Visual Disturbances: 0-None Headache: 0-None Present CIWA-Ar Total Score: 14 S Progress Note (SOAP) Subjective: Sweating,anxiety,interrupted sleep,restless,tremors & diarrhea once. Objective: 04/01/17 10:48 Vital Signs - 8 hr 04/01/17 04/01/17 04/01/17 03:33 06:58 09:30 Temperature 96.8 F L 95.6 F L Pulse Rate 53 L 59 L Respiratory 18 18 18 Rate Blood Pressure 125/80 116/69 Laboratory Results - last 24 hr 03/31/17 03/31/17 07:40 07:40 Sodium 140 Potassium 4.3 Chloride 108 H Carbon Dioxide 26 Anion Gap 6 L BUN 16 D Creatinine 0.8 Creat Clearance w eGFR > 60 Random Glucose 87 Calcium 8.8 Total Bilirubin 0.5 D AST 16 ALT 28 Alkaline Phosphatase 38 L Total Protein 6.0 L Albumin 3.3 L RPR Titer Nonreactive CBC WBC 6.8 K/mm3 (4.0-10.0) 03/31/17 07:40 RBC 4.82 M/mm3 (4.00-5.60) 03/31/17 07:40 Hgb 14.7 GM/dL (11.7-16.9) 03/31/17 07:40 Hct 43.6 % (35.4-49) 03/31/17 07:40 MCV 90.6 fl (80-96) 03/31/17 07:40 MCH 30.5 pg (25.7-33.7) 03/31/17 07:40 MCHC 33.6 g/dl (32.0-35.9) 03/31/17 07:40 RDW 13.4 % (11.9-15.9) 03/31/17 07:40 Plt Count 127 K/MM3 (134-434) L 03/31/17 07:40 MPV 9.7 fl (7.5-11.1) 03/31/17 07:40 Urine Test Results Urine Color Straw 03/30/17 13:10 Urine Appearance Clear 03/30/17 13:10 Urine pH 5.0 (5.0-8.0) 03/30/17 13:10 Ur Specific [place] 1.010 (1.005-1.025) 03/30/17 13:10 Urine Protein Negative (NEGATIVE) 03/30/17 13:10 Urine Glucose (UA) Negative (NEGATIVE) 03/30/17 13:10 Urine Ketones Negative (NEGATIVE) 03/30/17 13:10 Urine Blood Negative (NEGATIVE) 03/30/17 13:10 Urine Nitrite Negative (NEGATIVE) 03/30/17 13:10 Urine Bilirubin Negative (NEGATIVE) 03/30/17 13:10 Ur Leukocyte Esterase Negative (NEGATIVE) 03/30/17 13:10 labs noted Assessment: 04/01/17 10:50 Withdrawal sx. Plan: Continue detox
--- NOTE | 2017-04-01 11:31 | EKG ---
Test Reason : Blood Pressure : / mmHG Vent. Rate : 056 BPM Atrial Rate : 056 BPM P-R Int : 174 ms QRS Dur : 090 ms QT Int : 400 ms P-R-T Axes : 063 -07 054 degrees QTc Int : 386 ms SINUS BRADYCARDIA WITH SINUS ARRHYTHMIA OTHERWISE NORMAL ECG WHEN COMPARED WITH ECG OF 22-OCT-2016 22:32, PREMATURE VENTRICULAR COMPLEXES ARE NO LONGER PRESENT CRITERIA FOR SEPTAL INFARCT ARE NO LONGER PRESENT Confirmed by ESTRELLITA SOLOMON, EDWIGE ([id number]) on 04/01/2017 11:31:19 AM Referred By: Confirmed By:EDWIGE HARO MD
--- NOTE | 2017-04-01 15:54 | CONSULT ---
[facility] Psychiatric Consult - Data Date of interview: 04/01/17 Admission source: [facility] Identifying data: Another admission to [facility] for this 66 y/o male seeking detox treatment on for alcohol dependence.Patient is ,a father of one,undomiciled,unemployed and supported on [facility] benefits (knee replacement). Substance Abuse History: Long standing history of alcohol abuse (consumes 1-2 pints of [place] + 5 X 12 oz of beer daily).Smokes 8-10 cigarettes daily.Used alcohol prior to this [facility] visit. Medical History: COPD and a history of right knee replacement. Psychiatric History: No history of psychiatric hospitalizations.Diagnosed with depression and anxiety for several years (since his late s).Mr Morataya has been lost to follow up for several months.Not on psychotropic medications.Patient denies history of suicide attempts. Physical/Sexual Abuse/Trauma History: No reported history of sexual abuse.Traumatized by his divorce that left him homeless and financially strained. Additional Comment: Drug Screen Negative: Yes Mental Status Exam - Mental Status Exam Alert and Oriented to: Time, Place, Person Cognitive Function: Good Patient Appearance: Unkempt, Disheveled (unshaven) Mood: Withdrawn Affect: Appropriate, Normal Range Patient Behavior: Appropriate, Cooperative Speech Pattern: Clear, Appropriate Voice Loudness: Normal Thought Process: Goal Oriented Thought Disorder: Not Present Hallucinations: Denies Suicidal Ideation: Denies Homicidal Ideation: Denies Insight/Judgement: Poor Sleep: Fair Appetite: Good Muscle strength/Tone: Normal Gait/Station: Normal Psychiatric Findings - Problem List ([place] 1, 2,3) (1) Alcohol dependence with uncomplicated withdrawal Current Visit: Yes Status: Acute (2) Nicotine dependence Current Visit: Yes Status: Acute Qualifiers: Nicotine product type: cigarettes Substance use status: uncomplicated Qualified Code(s): F17.210 - Nicotine dependence, cigarettes, uncomplicated Comment: . (3) Drug-induced mood disorder Current Visit: Yes Status: Acute (4) History of COPD Current Visit: Yes Status: Chronic (5) Insomnia Current Visit: No Status: Chronic - Initial Treatment Plan Initial Treatment Plan: Psychoeducation.Detoxification in progress.Zolpidem 5 mg po hs prn.Patient is made aware of risk of parasomnias.He is in agreement with this careplan.Observation.
[2017-04-01] MEDS: chlordiazePOXIDE 5 MG CAPSULE PO SCH ×2 (17:27→22:25)
[2017-04-01] MEDS: ZOLPIDEM TARTRATE 5 MG TABLET PO PRN (22:25)
[2017-04-01] MEDS: THIAMINE HCL 100 MG TABLET (FP) PO SCH (22:25)
[2017-04-01] MEDS: chlordiazePOXIDE HCL 25 MG CAPSULE PO PRN (23:41)
[2017-04-01] MEDS: diphenhydrAMINE HCL 50 MG CAPSULE PO PRN (23:42)
[2017-04-02] MEDS: chlordiazePOXIDE 5 MG CAPSULE PO SCH ×2 (06:02→10:34)
[2017-04-02] MEDS: chlordiazePOXIDE HCL 25 MG CAPSULE PO PRN (08:48)
[2017-04-02] MEDS: PRENATAL VITAMINS W/ FOLIC ACID TABLET (FP) PO SCH (10:34)
--- NOTE | 2017-04-02 13:20 | PN ---
BHS Progress Note (SOAP) Subjective: Sweating,interrupted sleep,restless Objective: 04/02/17 13:19 Vital Signs - 8 hr 04/02/17 04/02/17 06:50 09:29 Temperature 97.6 F 96.4 F L Pulse Rate 54 L 57 L Respiratory 18 18 Rate Blood Pressure 119/84 133/76 Laboratory Last Values WBC 6.8 K/mm3 (4.0-10.0) 03/31/17 07:40 RBC 4.82 M/mm3 (4.00-5.60) 03/31/17 07:40 Hgb 14.7 GM/dL (11.7-16.9) 03/31/17 07:40 Hct 43.6 % (35.4-49) 03/31/17 07:40 MCV 90.6 fl (80-96) 03/31/17 07:40 MCH 30.5 pg (25.7-33.7) 03/31/17 07:40 MCHC 33.6 g/dl (32.0-35.9) 03/31/17 07:40 RDW 13.4 % (11.9-15.9) 03/31/17 07:40 Plt Count 127 K/MM3 (134-434) L 03/31/17 07:40 MPV 9.7 fl (7.5-11.1) 03/31/17 07:40 Sodium 140 mmol/L (136-145) 03/31/17 07:40 Potassium 4.3 mmol/L (3.5-5.1) 03/31/17 07:40 Chloride 108 mmol/L (98-107) H 03/31/17 07:40 Carbon Dioxide 26 mmol/L (21-32) 03/31/17 07:40 Anion Gap 6 (8-16) L 03/31/17 07:40 BUN 16 mg/dL (7-18) D 03/31/17 07:40 Creatinine 0.8 mg/dL (0.7-1.3) 03/31/17 07:40 Creat Clearance w eGFR > 60 (>60) 03/31/17 07:40 Random Glucose 87 mg/dL (74-106) 03/31/17 07:40 Calcium 8.8 mg/dL (8.5-10.1) 03/31/17 07:40 Total Bilirubin 0.5 mg/dL (0.2-1.0) D 03/31/17 07:40 AST 16 U/L (15-37) 03/31/17 07:40 ALT 28 U/L (12-78) 03/31/17 07:40 Alkaline Phosphatase 38 U/L (45-117) L 03/31/17 07:40 Total Protein 6.0 g/dl (6.4-8.2) L 03/31/17 07:40 Albumin 3.3 g/dl (3.4-5.0) L 03/31/17 07:40 Urine Color Straw 03/30/17 13:10 Urine Appearance Clear 03/30/17 13:10 Urine pH 5.0 (5.0-8.0) 03/30/17 13:10 Ur Specific [place] 1.010 (1.005-1.025) 03/30/17 13:10 Urine Protein Negative (NEGATIVE) 03/30/17 13:10 Urine Glucose (UA) Negative (NEGATIVE) 03/30/17 13:10 Urine Ketones Negative (NEGATIVE) 03/30/17 13:10 Urine Blood Negative (NEGATIVE) 03/30/17 13:10 Urine Nitrite Negative (NEGATIVE) 03/30/17 13:10 Urine Bilirubin Negative (NEGATIVE) 03/30/17 13:10 Urine Urobilinogen Negative mg/dL (0.2-1.0) 03/30/17 13:10 Ur Leukocyte Esterase Negative (NEGATIVE) 03/30/17 13:10 RPR Titer Nonreactive (NONREACTIVE) 03/31/17 07:40 labs noted Assessment: 04/02/17 13:19 Withdrawal sx. Plan: Continue detox
[2017-04-02] MEDS: chlordiazePOXIDE HCL 10 MG CAPSULE PO SCH ×2 (17:24→22:41)
[2017-04-02] MEDS: THIAMINE HCL 100 MG TABLET (FP) PO SCH (22:40)
[2017-04-02] MEDS: ZOLPIDEM TARTRATE 5 MG TABLET PO PRN (22:41)
[2017-04-03] MEDS: chlordiazePOXIDE HCL 10 MG CAPSULE PO SCH ×2 (05:43→10:19)
[2017-04-03] MEDS: PRENATAL VITAMINS W/ FOLIC ACID TABLET (FP) PO SCH (10:19)
--- NOTE | 2017-04-03 15:18 | PN ---
BHS Progress Note (SOAP) Subjective: Sweating,interrupted sleep,restless Objective: 04/03/17 15:17 Vital Signs - 8 hr 04/03/17 04/03/17 09:46 13:49 Temperature 96.5 F L 96 F L Pulse Rate 78 72 Respiratory 18 20 Rate Blood Pressure 118/82 111/79 Laboratory Last Values WBC 6.8 K/mm3 (4.0-10.0) 03/31/17 07:40 RBC 4.82 M/mm3 (4.00-5.60) 03/31/17 07:40 Hgb 14.7 GM/dL (11.7-16.9) 03/31/17 07:40 Hct 43.6 % (35.4-49) 03/31/17 07:40 MCV 90.6 fl (80-96) 03/31/17 07:40 MCH 30.5 pg (25.7-33.7) 03/31/17 07:40 MCHC 33.6 g/dl (32.0-35.9) 03/31/17 07:40 RDW 13.4 % (11.9-15.9) 03/31/17 07:40 Plt Count 127 K/MM3 (134-434) L 03/31/17 07:40 MPV 9.7 fl (7.5-11.1) 03/31/17 07:40 Sodium 140 mmol/L (136-145) 03/31/17 07:40 Potassium 4.3 mmol/L (3.5-5.1) 03/31/17 07:40 Chloride 108 mmol/L (98-107) H 03/31/17 07:40 Carbon Dioxide 26 mmol/L (21-32) 03/31/17 07:40 Anion Gap 6 (8-16) L 03/31/17 07:40 BUN 16 mg/dL (7-18) D 03/31/17 07:40 Creatinine 0.8 mg/dL (0.7-1.3) 03/31/17 07:40 Creat Clearance w eGFR > 60 (>60) 03/31/17 07:40 Random Glucose 87 mg/dL (74-106) 03/31/17 07:40 Calcium 8.8 mg/dL (8.5-10.1) 03/31/17 07:40 Total Bilirubin 0.5 mg/dL (0.2-1.0) D 03/31/17 07:40 AST 16 U/L (15-37) 03/31/17 07:40 ALT 28 U/L (12-78) 03/31/17 07:40 Alkaline Phosphatase 38 U/L (45-117) L 03/31/17 07:40 Total Protein 6.0 g/dl (6.4-8.2) L 03/31/17 07:40 Albumin 3.3 g/dl (3.4-5.0) L 03/31/17 07:40 Urine Color Straw 03/30/17 13:10 Urine Appearance Clear 03/30/17 13:10 Urine pH 5.0 (5.0-8.0) 03/30/17 13:10 Ur Specific [place] 1.010 (1.005-1.025) 03/30/17 13:10 Urine Protein Negative (NEGATIVE) 03/30/17 13:10 Urine Glucose (UA) Negative (NEGATIVE) 03/30/17 13:10 Urine Ketones Negative (NEGATIVE) 03/30/17 13:10 Urine Blood Negative (NEGATIVE) 03/30/17 13:10 Urine Nitrite Negative (NEGATIVE) 03/30/17 13:10 Urine Bilirubin Negative (NEGATIVE) 03/30/17 13:10 Urine Urobilinogen Negative mg/dL (0.2-1.0) 03/30/17 13:10 Ur Leukocyte Esterase Negative (NEGATIVE) 03/30/17 13:10 RPR Titer Nonreactive (NONREACTIVE) 03/31/17 07:40 labs noted Assessment: 04/03/17 15:18 Withdrawal sx. Plan: Continue detox
[2017-04-03] MEDS: hydrOXYzine PAMOATE 50 MG CAPSULE (FP) PO PRN (17:35)
[2017-04-03] MEDS: THIAMINE HCL 100 MG TABLET (FP) PO SCH (22:47)
[2017-04-03] MEDS: ZOLPIDEM TARTRATE 5 MG TABLET PO PRN (22:48)
[2017-04-04] MEDS: PRENATAL VITAMINS W/ FOLIC ACID TABLET (FP) PO SCH (10:50)
--- NOTE | 2017-04-04 14:27 | HP ---
ILANA SOLOMON Rehab Assess/Revision - Admission History Admitted to Rehab from: [facility] Date of Admission to Rehab: 04/04/17 - Vital signs Vital Signs: Vital Signs Period Temp Pulse Resp BP Sys/Mackey Pulse Ox Last 24 Hr 96.5 F-97.7 F 57-97 18-20 108-146/72-85 - Findings Detox History & Physical reviewed: Yes Concur with findings: Yes
--- NOTE | 2017-04-04 14:27 | DS ---
[facility] Detox Discharge Summary Admission Date: 03/30/17 Discharge Date: 04/04/17 - History Present History: Alcohol Dependence, Cocaine Dependence Pertinent Past History: Copd - Physical Exam Results Vital Signs: Vital Signs Temperature 96.5 F L 04/04/17 10:54 Pulse Rate 97 H 04/04/17 10:54 Respiratory Rate 18 04/04/17 10:54 Blood Pressure 146/85 04/04/17 10:54 O2 Sat by Pulse Oximetry (%) Pertinent Admission Physical Exam Findings: Withdrawal sx. Laboratory Tests 03/30/17 03/31/17 03/31/17 13:10 07:40 07:40 WBC 6.8 RBC 4.82 Hgb 14.7 Hct 43.6 MCV 90.6 MCH 30.5 MCHC 33.6 RDW 13.4 Plt Count 127 L MPV 9.7 Sodium 140 Potassium 4.3 Chloride 108 H Carbon Dioxide 26 Anion Gap 6 L BUN 16 D Creatinine 0.8 Creat Clearance w eGFR > 60 Random Glucose 87 Calcium 8.8 Total Bilirubin 0.5 D AST 16 ALT 28 Alkaline Phosphatase 38 L Total Protein 6.0 L Albumin 3.3 L Urine Color Straw Urine Appearance Clear Urine pH 5.0 Ur Specific [place] 1.010 Urine Protein Negative Urine Glucose (UA) Negative Urine Ketones Negative Urine Blood Negative Urine Nitrite Negative Urine Bilirubin Negative Urine Urobilinogen Negative Ur Leukocyte Esterase Negative RPR Titer 03/31/17 07:40 WBC RBC Hgb Hct MCV MCH MCHC RDW Plt Count MPV Sodium Potassium Chloride Carbon Dioxide Anion Gap BUN Creatinine Creat Clearance w eGFR Random Glucose Calcium Total Bilirubin AST ALT Alkaline Phosphatase Total Protein Albumin Urine Color Urine Appearance Urine pH Ur Specific [place] Urine Protein Urine Glucose (UA) Urine Ketones Urine Blood Urine Nitrite Urine Bilirubin Urine Urobilinogen Ur Leukocyte Esterase RPR Titer Nonreactive labs noted - Treatment Hospital Course: Detox Protocol Followed, Detoxed Safely, Responded well, Discharged Condition Good, Rehab Referral Accepted Patient has Accepted a Rehab Referral to: [facility] - Medication Discharge Medications: Ambulatory Orders Albuterol Sulfate Inhaler - [Ventolin HFA Inhaler -] 2 inh PO Q4H PRN 03/30/17 - Diagnosis (1) Alcohol dependence with uncomplicated withdrawal Current Visit: Yes Status: Acute (2) Cocaine dependence with withdrawal Current Visit: Yes Status: Acute (3) Drug-induced mood disorder Current Visit: Yes Status: Acute (4) Nicotine dependence Current Visit: Yes Status: Acute Qualifiers: Nicotine product type: cigarettes Substance use status: uncomplicated Qualified Code(s): F17.210 - Nicotine dependence, cigarettes, uncomplicated (5) History of COPD Current Visit: Yes Status: Chronic (6) Nicotine dependence, cigarettes, uncomplicated Current Visit: No Status: Acute (7) Status post total right knee replacement Current Visit: No Status: Chronic - AMA Did Patient Leave Against Medical Advice: No
[2017-04-04] MEDS: THIAMINE HCL 100 MG TABLET (FP) PO SCH (21:28)
[2017-04-04] MEDS: hydrOXYzine PAMOATE 50 MG CAPSULE (FP) PO PRN (21:28)
--- NOTE | 2017-04-05 06:54 | HP ---
Psychiatrist Admission - Data Date of interview: 04/05/17 Admission source: [facility] Identifying data: This is one of the multiple [facility] admission for this 66 years old male, father of a 25 years old daughter, unemployed on SSD, homeless Medical History: Significant for COPD and a history of orthosurgery for right knee replacement in December 2009. Smokes 8 cigarettes daily Psychiatric History: Reports being diagnosed with depression and anxiety by a private psychiatrist in [place] in 2007. Reports that he was prescribed Cymbalta up to 90 mg/day, Valium, Ambien along with CBT. Reports that Cymbalta did not work but he stayed in treatment for 3 years when that psychiatrist moved to [facility] in [place]. Told commercial loan underwriter that that psychiatrist thought his deprsssion was more situational. Reports that he saw that same psychiatrist in [place] a few times 1.5 to 2 years ago and was prescribed some sleeping medication. Denies history of previous psychiatric hospitalization or suicidal attempt. He saw Dr Curry on 04/01/17 while in detox and was prescribed Ambien 10 mg po HS prn for insomnia. At present, Reports feeling mildly depressed and sleeping poorly without medication Physical/Sexual Abuse/Trauma History: Denies history of emotional, physical or sexual abuse as well as DV relationship. No service Additional Comment: Reports history of multiple drug related arrests. Denies being on probation at present Vital Signs: Vital Signs - 24 hr 04/04/17 04/05/17 04/05/17 10:54 03:30 06:41 Temperature 96.5 F L 98.4 F Pulse Rate 97 H 57 L Respiratory 18 18 18 Rate Blood Pressure 146/85 121/72 Allergies/Adverse Reactions: Allergies Allergy/AdvReac Type Severity Reaction Status Date / Time Penicillins Allergy Severe Swelling Verified 03/30/17 13:24 Date of last physical exam: 03/30/17 Concur with the findings of this exam: Yes - Substance Abuse/Tx History Hx Alcohol Use: Yes Hx Substance Use: No Substance Use Type: Alcohol (Started drinking alcohol at age 16, consumes a fifth of bourbon daily. Last drink on 03/30/17) Hx Substance Use Treatment: Yes (4 previous inpt detox & 4 inpt rehab @[facility]) - Admission Criteria Previous failed treatment: Yes Poor recovery environment: Yes Comorbidities: Yes Lacks judgement: Yes Mental Status Exam - Mental Status Exam Alert and Oriented to: Time, Place, Person Cognitive Function: Fair Patient Appearance: Well Groomed Mood: Hopeful, Euthymic Patient Behavior: Cooperative Speech Pattern: Clear Voice Loudness: Normal Thought Process: Intact, Goal Oriented Thought Disorder: Not Present Hallucinations: Denies Suicidal Ideation: Denies Homicidal Ideation: Denies Insight/Judgement: Fair Sleep: Poorly Appetite: Good Muscle strength/Tone: Normal Gait/Station: Normal Psychiatric Findings - Problem List ([place] 1, 2,3) (1) Alcohol dependence Current Visit: No Status: Chronic Qualifiers: Substance use status: alcohol-induced sleep disorder Qualified Code(s) : F10.282 - Alcohol dependence with alcohol-induced sleep disorder Comment: . (2) Nicotine dependence Current Visit: Yes Status: Acute Qualifiers: Nicotine product type: cigarettes Substance use status: uncomplicated Qualified Code(s): F17.210 - Nicotine dependence, cigarettes, uncomplicated Comment: . (3) Alcohol-induced mood disorder Current Visit: No Status: Suspected (4) Alcohol-induced sleep disorder Current Visit: No Status: Chronic (5) History of COPD Current Visit: Yes Status: Chronic (6) Status post total right knee replacement Current Visit: No Status: Chronic Comment: . - Initial Treatment Plan Initial Treatment Plan: 1) Start Belsonra 10 mg po HS prn for insomnia. 2) Monitor progress
[2017-04-05] MEDS: PRENATAL VITAMINS W/ FOLIC ACID TABLET (FP) PO SCH (10:22)
[2017-04-05] MEDS: THIAMINE HCL 100 MG TABLET (FP) PO SCH (21:55)
[2017-04-05] MEDS: ZOLPIDEM TARTRATE 5 MG TABLET PO PRN (22:34)
[2017-04-06] MEDS: PRENATAL VITAMINS W/ FOLIC ACID TABLET (FP) PO SCH (09:57)
[2017-04-06] MEDS: THIAMINE HCL 100 MG TABLET (FP) PO SCH (22:20)
[2017-04-06] MEDS: ZOLPIDEM TARTRATE 5 MG TABLET PO PRN (22:29)
[2017-04-07] MEDS: PRENATAL VITAMINS W/ FOLIC ACID TABLET (FP) PO SCH (09:39)
[2017-04-07] MEDS: MAGNESIUM HYDROX 2400MG/30ML ORAL SUSPENSION 30 ML CUP PO PRN (09:40)
[2017-04-07] MEDS: ZOLPIDEM TARTRATE 5 MG TABLET PO PRN (23:00)
[2017-04-07] MEDS: THIAMINE HCL 100 MG TABLET (FP) PO SCH (23:00)
[2017-04-08] MEDS: PRENATAL VITAMINS W/ FOLIC ACID TABLET (FP) PO SCH (09:49)
[2017-04-08] MEDS: ZOLPIDEM TARTRATE 5 MG TABLET PO PRN (23:45)
[2017-04-09] MEDS: THIAMINE HCL 100 MG TABLET (FP) PO SCH ×2 (00:03→21:44)
[2017-04-09] MEDS: PRENATAL VITAMINS W/ FOLIC ACID TABLET (FP) PO SCH (09:17)
[2017-04-09] MEDS: ZOLPIDEM TARTRATE 5 MG TABLET PO PRN (21:44)
[2017-04-10] MEDS: PRENATAL VITAMINS W/ FOLIC ACID TABLET (FP) PO SCH (10:28)
[2017-04-10] MEDS: THIAMINE HCL 100 MG TABLET (FP) PO SCH (21:23)
[2017-04-10] MEDS: ZOLPIDEM TARTRATE 5 MG TABLET PO PRN (21:23)
[2017-04-11] MEDS: IBUPROFEN 400 MG TABLET (FP) PO PRN ×2 (06:36→14:49)
[2017-04-11] MEDS: PRENATAL VITAMINS W/ FOLIC ACID TABLET (FP) PO SCH (10:19)
[2017-04-11] MEDS: THIAMINE HCL 100 MG TABLET (FP) PO SCH (21:35)
[2017-04-11] MEDS: ZOLPIDEM TARTRATE 5 MG TABLET PO PRN (21:58)
[2017-04-12] MEDS: PRENATAL VITAMINS W/ FOLIC ACID TABLET (FP) PO SCH (09:49)
[2017-04-12] MEDS: THIAMINE HCL 100 MG TABLET (FP) PO SCH (21:24)
[2017-04-12] MEDS: ZOLPIDEM TARTRATE 5 MG TABLET PO PRN (21:24)
[2017-04-13] MEDS: PRENATAL VITAMINS W/ FOLIC ACID TABLET (FP) PO SCH (10:18)
[2017-04-13] MEDS: THIAMINE HCL 100 MG TABLET (FP) PO SCH (21:25)
[2017-04-13] MEDS: ZOLPIDEM TARTRATE 5 MG TABLET PO PRN (21:25)
[2017-04-14] MEDS: IBUPROFEN 400 MG TABLET (FP) PO PRN (08:30)
[2017-04-14] MEDS: PRENATAL VITAMINS W/ FOLIC ACID TABLET (FP) PO SCH (09:55)
[2017-04-14] MEDS: ZOLPIDEM TARTRATE 5 MG TABLET PO PRN (21:29)
[2017-04-14] MEDS: THIAMINE HCL 100 MG TABLET (FP) PO SCH (21:29)
[2017-04-15] MEDS: PRENATAL VITAMINS W/ FOLIC ACID TABLET (FP) PO SCH (09:52)
[2017-04-15] MEDS: ZOLPIDEM TARTRATE 5 MG TABLET PO PRN (21:40)
[2017-04-15] MEDS: THIAMINE HCL 100 MG TABLET (FP) PO SCH (21:40)
[2017-04-16] MEDS: PRENATAL VITAMINS W/ FOLIC ACID TABLET (FP) PO SCH (10:09)
[2017-04-16] MEDS: THIAMINE HCL 100 MG TABLET (FP) PO SCH (21:31)
[2017-04-16] MEDS: hydrOXYzine PAMOATE 50 MG CAPSULE (FP) PO PRN (21:31)
[2017-04-17] MEDS: PRENATAL VITAMINS W/ FOLIC ACID TABLET (FP) PO SCH (10:09)
[2017-04-17] MEDS: IBUPROFEN 400 MG TABLET (FP) PO PRN (16:59)
[2017-04-17] MEDS: hydrOXYzine PAMOATE 50 MG CAPSULE (FP) PO PRN (21:32)
[2017-04-17] MEDS: THIAMINE HCL 100 MG TABLET (FP) PO SCH (21:32)
[2017-04-18] MEDS: PRENATAL VITAMINS W/ FOLIC ACID TABLET (FP) PO SCH (10:19)
[2017-04-18] MEDS: hydrOXYzine PAMOATE 50 MG CAPSULE (FP) PO PRN (22:17)
[2017-04-18] MEDS: THIAMINE HCL 100 MG TABLET (FP) PO SCH (22:18)
[2017-04-19] MEDS: PRENATAL VITAMINS W/ FOLIC ACID TABLET (FP) PO SCH (10:21)
[2017-04-19] MEDS: IBUPROFEN 400 MG TABLET (FP) PO PRN (14:46)
[2017-04-19] MEDS: hydrOXYzine PAMOATE 50 MG CAPSULE (FP) PO PRN (21:31)
[2017-04-19] MEDS: THIAMINE HCL 100 MG TABLET (FP) PO SCH (21:31)
[2017-04-20] MEDS: PRENATAL VITAMINS W/ FOLIC ACID TABLET (FP) PO SCH (09:48)
[2017-04-20] MEDS: THIAMINE HCL 100 MG TABLET (FP) PO SCH ×2 (21:54→22:27)
[2017-04-20] MEDS: hydrOXYzine PAMOATE 50 MG CAPSULE (FP) PO PRN (22:27)
[2017-04-21] MEDS: PRENATAL VITAMINS W/ FOLIC ACID TABLET (FP) PO SCH (10:04)
[2017-04-21] MEDS: THIAMINE HCL 100 MG TABLET (FP) PO SCH (21:43)
[2017-04-21] MEDS: hydrOXYzine PAMOATE 50 MG CAPSULE (FP) PO PRN (21:44)
[2017-04-22] MEDS: PRENATAL VITAMINS W/ FOLIC ACID TABLET (FP) PO SCH (10:19)
[2017-04-22] MEDS: THIAMINE HCL 100 MG TABLET (FP) PO SCH (21:19)
[2017-04-22] MEDS: hydrOXYzine PAMOATE 50 MG CAPSULE (FP) PO PRN (21:19)
[2017-04-23] MEDS: PRENATAL VITAMINS W/ FOLIC ACID TABLET (FP) PO SCH (09:56)
[2017-04-23] MEDS: THIAMINE HCL 100 MG TABLET (FP) PO SCH (22:37)
[2017-04-23] MEDS: hydrOXYzine PAMOATE 50 MG CAPSULE (FP) PO PRN (22:37)
[2017-04-24] MEDS: PRENATAL VITAMINS W/ FOLIC ACID TABLET (FP) PO SCH (10:10)
[2017-04-24] MEDS: hydrOXYzine PAMOATE 50 MG CAPSULE (FP) PO PRN (21:32)
[2017-04-24] MEDS: THIAMINE HCL 100 MG TABLET (FP) PO SCH (21:32)
[2017-04-25] MEDS: PRENATAL VITAMINS W/ FOLIC ACID TABLET (FP) PO SCH (10:03)
[2017-04-25] MEDS: THIAMINE HCL 100 MG TABLET (FP) PO SCH (22:00)
[2017-04-25] MEDS: hydrOXYzine PAMOATE 50 MG CAPSULE (FP) PO PRN (22:01)
[2017-04-26] MEDS: PRENATAL VITAMINS W/ FOLIC ACID TABLET (FP) PO SCH (10:21)
[2017-04-26] MEDS: THIAMINE HCL 100 MG TABLET (FP) PO SCH (21:50)
[2017-04-26] MEDS: hydrOXYzine PAMOATE 50 MG CAPSULE (FP) PO PRN (21:50)
[2017-04-27] MEDS: PRENATAL VITAMINS W/ FOLIC ACID TABLET (FP) PO SCH (10:16)
[2017-04-27] MEDS: THIAMINE HCL 100 MG TABLET (FP) PO SCH (21:36)
[2017-04-27] MEDS: hydrOXYzine PAMOATE 50 MG CAPSULE (FP) PO PRN (21:36)
[2017-04-28] MEDS: PRENATAL VITAMINS W/ FOLIC ACID TABLET (FP) PO SCH (09:54)
[2017-04-28] MEDS: hydrOXYzine PAMOATE 50 MG CAPSULE (FP) PO PRN (21:35)
[2017-04-28] MEDS: THIAMINE HCL 100 MG TABLET (FP) PO SCH (21:35)
[2017-04-29] MEDS: PRENATAL VITAMINS W/ FOLIC ACID TABLET (FP) PO SCH (10:18)
[2017-04-29] MEDS: THIAMINE HCL 100 MG TABLET (FP) PO SCH (21:14)
[2017-04-29] MEDS: hydrOXYzine PAMOATE 50 MG CAPSULE (FP) PO PRN (21:14)
[2017-04-30 07:07] VITALS: TEMP 97.8
[2017-04-30] MEDS: PRENATAL VITAMINS W/ FOLIC ACID TABLET (FP) PO SCH (09:58)
[2017-04-30] MEDS: THIAMINE HCL 100 MG TABLET (FP) PO SCH (21:43)
[2017-05-01] MEDS: PRENATAL VITAMINS W/ FOLIC ACID TABLET (FP) PO SCH (10:06)
--- NOTE | 2017-05-01 15:21 | PN ---
Psychiatric Progress Note Vital Signs: Vital Signs Period Temp Pulse Resp BP Sys/Mackey Pulse Ox Last 24 Hr 18-18 Date of Session: 05/01/17 Chief Complaint:: Discharge visit HPI: Patient addressed Alcohol and Cocaine dependence comorbid with Substance induced mood disorder. ROS: Significant for COPD,R knee replacement. Current Medications: Active Medications Generic Name Dose Route Start Last Admin Trade Name Freq PRN Reason Stop Dose Admin Acetaminophen 650 mg 03/30/17 11:24 Tylenol - PO Q4H PRN FEVER OR PAIN Al Hydroxide/Mg Hydroxide 30 ml 03/30/17 11:24 Mylanta Oral Suspension - PO Q6H PRN DYSPEPSIA Albuterol Sulfate 2 puff 03/30/17 11:27 Ventolin Hfa Inhaler - IH Q4H PRN WHEEZING Diphenhydramine HCl 50 mg 03/30/17 11:24 04/01/17 23:42 Benadryl - PO 50 mg HSMR1 PRN Administration INSOMNIA Eucalyptus/Menthol/Phenol/Sorbitol 1 each 03/30/17 11:24 Cepastat Lozenge - MM Q4H PRN SORE THROAT Guaifenesin 10 ml 03/30/17 11:24 Robitussin Dm - PO Q6H PRN COUGH Hydroxyzine Pamoate 50 mg 03/30/17 11:24 04/29/17 21:14 Vistaril - PO 50 mg Q4H PRN Administration AGITATION Ibuprofen 400 mg 03/30/17 11:24 04/19/17 14:46 Motrin - PO 400 mg Q6H PRN Administration SEVERE PAIN Loperamide HCl 4 mg 03/30/17 11:24 Imodium - PO Q6H PRN DIARRHEA Magnesium Citrate 300 ml 03/30/17 11:24 Citroma - PO Q48H PRN CONSTIPATION Magnesium Hydroxide 30 ml 03/30/17 11:24 04/07/17 09:40 Milk Of Magnesia - PO 30 ml DAILY PRN Administration CONSTIPATION Nicotine Polacrilex 4 mg 03/30/17 11:24 Nicorette Gum - BUC Q2H PRN NICOTINE REPLACEMENT RX Multivit/Folic Acid/Iron 1 tab 03/31/17 10:00 05/01/17 10:06 Vitamins (Sjr) - PO 1 tab DAILY TRISTIN Administration Pseudoephedrine/Triprolidine 1 combo 03/30/17 11:24 Actifed - PO TID PRN NASAL CONGESTION Thiamine HCl 100 mg 03/30/17 22:00 04/30/17 21:43 Vitamin B1 - PO 100 mg HS TRISTIN Administration Current Side Effect: No Lab tests ordered: No Lab tests reviewed: Yes Provider note:: Patient will complete this program tomorrow 05/02/17.He has met his treatment goals and will continue to address his issues on outpatient basis at [facility] .He will be attending groups twice a week.Patient identifies areas of difficulties ,behaviors which contribute to relapse and ways ,support ,coping skills he can utilze to maintain recovery.Supportive therapy provided. Patient is stable for discharge tomorrow 05/02/17. Total face to face time:: 30 Mental Status Exam - Mental Status Exam Alert and Oriented to: Time, Place, Person Cognitive Function: Grossly Intact Patient Appearance: Well Groomed Mood: Hopeful Affect: Appropriate, Mood Congruent Patient Behavior: Cooperative Speech Pattern: Clear Voice Loudness: Normal Thought Process: Goal Oriented Thought Disorder: Not Present Hallucinations: Denies Suicidal Ideation: Denies Homicidal Ideation: Denies Insight/Judgement: Fair Sleep: Fair Appetite: Good Muscle strength/Tone: Normal Gait/Station: Normal Psychiatric Treatment Plan - Problem List (1) Nicotine dependence Current Visit: Yes Qualifiers: Nicotine product type: cigarettes Substance use status: uncomplicated Qualified Code(s): F17.210 - Nicotine dependence, cigarettes, uncomplicated Comment: . (2) History of COPD Current Visit: Yes (3) Cocaine dependence Current Visit: Yes (4) Alcohol dependence Current Visit: Yes Qualifiers: Substance use status: alcohol-induced sleep disorder Qualified Code(s) : F10.282 - Alcohol dependence with alcohol-induced sleep disorder Comment: . (5) Status post right knee replacement Current Visit: Yes (6) Alcohol-induced mood disorder Current Visit: No
[2017-05-01] MEDS: hydrOXYzine PAMOATE 50 MG CAPSULE (FP) PO PRN (21:33)
[2017-05-01] MEDS: THIAMINE HCL 100 MG TABLET (FP) PO SCH (21:33)
[2017-05-02 06:53] VITALS: BP 107/70; PULSE 53
[2017-05-02] MEDS: PRENATAL VITAMINS W/ FOLIC ACID TABLET (FP) PO SCH (09:45)
== END 2017-05-02 10:16 | disposition home or self-care (01) | DRG 895 ==
LOC: YASAS 10:33 → Y3N 13:13 → Y3W 04-04 11:40
PROVIDERS: ADMIT Internal Medicine; ATTEND Psychiatry & Neurology Psychiatry
PROC: HZ2ZZZZ Detoxification Services for Substance Abuse Treatment (ICD-10-PCS; 2017-04-04)
PROC: HZ42ZZZ Group Counseling for Substance Abuse Treatment, Cognitive-Behavioral (ICD-10-PCS; principal; 2017-05-02)
DX: F10.220 Alcohol dependence with intoxication, uncomplicated (principal); F14.20 Cocaine dependence, uncomplicated; F10.24 Alcohol dependence with alcohol-induced mood disorder; F17.210 Nicotine dependence, cigarettes, uncomplicated; F10.282 Alcohol dependence with alcohol-induced sleep disorder; J44.9 Chronic obstructive pulmonary disease, unspecified; Z96.651 Presence of right artificial knee joint
CPT/HCPCS: 36415; 80053; 81003; 85027; 86593; 93005; 93010

== ENCOUNTER 2017-09-24 10:02 | Inpatient (IN) | payer OTHER ==
[2017-09-24 11:12] VITALS: BMI 30.3
--- NOTE | 2017-09-24 12:42 | HP ---
Admission [facility] - [facility] Chief Complaint: REHAB TX FOR DRUD AND ALCOHOL ADDICTION Allergies/Adverse Reactions: Allergies Allergy/AdvReac Type Severity Reaction Status Date / Time Penicillins Allergy Severe Swelling Verified 09/24/17 12:15 History of Present Illness: 66 Y/O MALE WITH A HX OF ALCOHOL AND COCAINE DEPENDENCE SEEKING REHAB TX. Exam Limitations: No Limitations - Ebola screening Have you traveled outside of the country in the last 21 days: No (N) Have you had contact with anyone from an Ebola affected area: No Have you been sick,other than usual withdrawal symptoms: No Do you have a fever: No - Review of Systems Constitutional: Changes in sleep ("NOT GREAT") EENT: reports: Dental Problems (MISSING TEETH) Respiratory: reports: Shortness of Breath (COPD), Wheezing Cardiac: reports: Lightheadedness GI: reports: No Symptoms Reported : reports: No Symptoms Reported Musculoskeletal: reports: No Symptoms Reported Integumentary: reports: No Symptoms Reported Neuro: reports: Headache, Tremors, Dizziness Endocrine: reports: No Symptoms Reported Hematology: reports: No Symptoms Reported Psychiatric: reports: Orientated x3, Anxious, Depressed Other Systems: Reviewed and Negative Patient History - Patient Medical History Hx Anemia: No Hx Asthma: No Hx Chronic Obstructive Pulmonary Disease (COPD): Yes Hx Cancer: No Hx Cardiac Disorders: No Hx Congestive Heart Failure: No Hx Hypertension: No Hx Hypercholesterolemia: No Hx Pacemaker: No HX Cerebrovascular Accident: No Hx Seizures: No Hx Dementia: No Hx Diabetes: No Hx Gastrointestinal Disorders: No Hx Liver Disease: No Hx Genitourinary Disorders: No Hx Sexually Transmitted Disorders: No Hx Renal Disease (ESRD): No Hx Thyroid Disease: No Hx Human Immunodeficiency Virus (HIV): No Hx Hepatitis C: No Hx Depression: Yes (with anxiety - never hospitalized) Hx Suicide Attempt: No (DENIES) Hx Bipolar Disorder: No (ON WELBUTRIN) Hx Schizophrenia: No - Patient Surgical History Past Surgical History: Yes Hx Neurologic Surgery: No Hx Cataract Extraction: No Hx Cardiac Surgery: No Hx Lung Surgery: No Hx Breast Surgery: No Hx Breast Biopsy: No Hx Abdominal Surgery: No Hx Appendectomy: No Hx Cholecystectomy: No Hx Genitourinary Surgery: No Hx Orthopedic Surgery: Yes (Right knee replacement in 12/17) Anesthesia Reaction: No - PPD History Previous Implant?: Yes Documented Results: Negative w/proof Date: 03/25/17 Results: 0 mm PPD to be Administered?: No - Reproductive History Patient is a Female of Child Bearing Age (11 -55 yrs old): No (MALE) - Smoking Cessation Smoking history: Current every day smoker Have you smoked in the past 12 months: Yes Aproximately how many cigarettes per day: 8 Cigars Per Day: 0 Hx Chewing Tobacco Use: No Initiated information on smoking cessation: Yes 'Breaking Loose' booklet given: 09/24/17 - Substance & Tx. History Hx Alcohol Use: Yes (BOURBON) Hx Substance Use: Yes (COCAINE) Substance Use Type: Alcohol, Cocaine Hx Substance Use Treatment: Yes (LAST TX AT [facility]) - Substances Abused Alcohol Route: Oral Frequency: Daily Amount used: 1 pint- 1 fifth bourbon Age of first use: 17 Date of Last Use: 08/31/17 Cocaine Route: Smoking Frequency: Daily Amount used: $200 Age of first use: 48 Date of Last Use: 08/31/17 Family Disease History - Family Disease History Family Disease History: Heart Disease: Grandparent (grandfather etoh, ), Father (, COPD), Mother (, RA), CA: Grandparent, Respiratory: Father, Other: Grandparent, Mother, Sister (alive, healthy, etoh), Daughter (one,living , healthy) Admission Physical Exam S - Vital Signs Vital Signs: Vital Signs - 24 hr 09/24/17 11:09 Temperature 97.2 F L Pulse Rate 57 L Respiratory 20 Rate Blood Pressure 135/80 - Physical General Appearance: Yes: Mild Distress, Moderate Distress, Irritable, Anxious HEENTM: Yes: EOMI, Normocephalic, JAYCOB, Pharynx Normal Respiratory: Yes: Chest Non-Tender, Lungs Clear, Normal Breath Sounds, No Respiratory Distress Neck: Yes: Supple, Trachea in good position Breast: Yes: Breast Exam Deferred Cardiology: Yes: Regular Rhythm, S1, S2, Bradycardia Abdominal: Yes: Normal Bowel Sounds, Non Tender, Soft Genitourinary: Yes: Other (N/C) Back: Yes: Within Normal Limits Musculoskeletal: Yes: full range of Motion, Gait Steady Extremities: Yes: Normal Range of Motion, Non-Tender Neurological: Yes: obiee report developer II-XII NML intact, Fully Oriented, Alert, Motor Strength 5/5 Integumentary: Yes: Dry, Warm Lymphatic: Yes: Within Normal Limits - Diagnostic (1) Alcohol dependence with uncomplicated withdrawal Current Visit: Yes Status: Chronic (2) Cocaine dependence with withdrawal Current Visit: Yes Status: Chronic (3) Nicotine dependence Current Visit: Yes Status: Acute Qualifiers: Nicotine product type: cigarettes Substance use status: in withdrawal Qualified Code(s): F17.213 - Nicotine dependence, cigarettes, with withdrawal Comment: . (4) History of COPD Current Visit: Yes Status: Chronic (5) Status post total right knee replacement Current Visit: Yes Status: Chronic Comment: . Cleared for Admission S - Detox or Rehab Claeared for Rehab Admission: Yes S Breath Alcohol Content Breath Alcohol Content: 0 Urine Drug Screen - Results Drug Screen Negative: No Urine Drug Screen Results: BZO-Benzodiazepines, TCA-Tricyclic Antidepress Inpatient Rehab Admission - Initial Determination Are CD services needed?: Yes Free of communicable disease: Yes Not in need of hospitalization: Yes - Rehab Admission Criteria Patient is meeting Inpatient Rehab admission criteria:: Yes
[2017-09-24] MEDS ORDERED: IBUPROFEN 400 MG TABLET (FP) PO PRN (12:54)
[2017-09-24] MEDS ORDERED: MAGNESIUM HYDROX 2400MG/30ML ORAL SUSPENSION 30 ML CUP PO PRN (12:54)
[2017-09-24] MEDS ORDERED: LOPERAMIDE HCL 2 MG CAPSULE PO PRN (12:54)
[2017-09-24] MEDS ORDERED: P-EPHED 60MG/TRIPROLIDI 2.5MG TABLET PO PRN (12:54)
[2017-09-24] MEDS ORDERED: MAG HYDROX/AL HYDROX/SIMETH 30 ML UNIT-DOSE CUP PO PRN (12:54)
[2017-09-24] MEDS ORDERED: MAGNESIUM CITRATE 300 ML BOTTLE PO PRN (12:54)
[2017-09-24] MEDS ORDERED: guaiFENesin/D-METHORPHAN HB 10 ML UNIT-DOSE CUPS PO PRN (12:54)
[2017-09-24] MEDS ORDERED: MENTHOL/PHENOL 1 EACH UD MM PRN (12:54)
[2017-09-24] MEDS ORDERED: ACETAMINOPHEN 325 MG TABLET (FP) PO PRN (12:54)
[2017-09-24] MEDS ORDERED: NICOTINE POLACRILEX 2 MG GUM BUC PRN (12:54)
[2017-09-24] MEDS: NICOTINE 14 MG/24 HOURS TOPICAL PATCH TD SCH (16:23)
[2017-09-24 16:52] LABS: HEMATOCRIT 43.4 % (35.4-49); HEMOGLOBIN 14.7 GM/dL (11.7-16.9); MCH 30.3 pg (25.7-33.7); MCHC 33.8 g/dl (32.0-35.9); MEAN CELL VOLUME 89.8 fl (80-96); MEAN PLT VOLUME 9.8 fl (7.5-11.1); PLATELET COUNT 229 K/MM3 (134-434); RBC 4.84 M/mm3 (4.00-5.60); RDW 13.3 % (11.9-15.9)
[2017-09-24 17:03] LABS: ALBUMIN 4.5 g/dl (3.4-5.0); ANION GAP 7 (8-16); BLOOD UREA NITROGEN 19 mg/dL (7-18); CALCIUM 9.3 mg/dL (8.5-10.1); CHLORIDE 104 mmol/L (98-107); CO2 28 mmol/L (21-32); GLUCOSE,RANDOM 78 mg/dL (74-106); POTASSIUM 4.7 mmol/L (3.5-5.1); SODIUM 139 mmol/L (136-145)
[2017-09-24 17:06] LABS: ALK PHOS 58 U/L (45-117); BILIRUBIN,TOTAL 0.7 mg/dL (0.2-1.0); SGOT/AST 19 U/L (15-37); SGPT/ALT 34 U/L (12-78); TOT PROT 7.9 g/dl (6.4-8.2)
[2017-09-24] MEDS: THIAMINE HCL 100 MG TABLET (FP) PO SCH (21:57)
[2017-09-24] MEDS: hydrOXYzine PAMOATE 50 MG CAPSULE (FP) PO PRN (22:01)
[2017-09-24 23:35] LABS: URINE APPEARANCE CLEAR; URINE BILIRUBIN NEGATIVE (NEGATIVE); URINE BLOOD NEGATIVE (NEGATIVE); URINE COLOR YELLOW; URINE GLUCOSE (UA) NEGATIVE (NEGATIVE); URINE KETONE NEGATIVE (NEGATIVE); URINE LEUK ESTERASE NEGATIVE (NEGATIVE); URINE NITRITE NEGATIVE (NEGATIVE); URINE PROTEIN NEGATIVE (NEGATIVE); URINE UROBILINOGEN NEGATIVE mg/dL (0.2-1.0)
[2017-09-25] MEDS: PRENATAL VITAMINS W/ FOLIC ACID TABLET (FP) PO SCH (10:22)
[2017-09-25] MEDS: NICOTINE 14 MG/24 HOURS TOPICAL PATCH TD SCH (10:22)
--- NOTE | 2017-09-25 10:45 | EKG ---
Test Reason : Blood Pressure : / mmHG Vent. Rate : 049 BPM Atrial Rate : 049 BPM P-R Int : 174 ms QRS Dur : 088 ms QT Int : 398 ms P-R-T Axes : 068 -07 053 degrees QTc Int : 359 ms SINUS BRADYCARDIA OTHERWISE NORMAL ECG WHEN COMPARED WITH ECG OF 30-MAR-2017 14:14, NO SIGNIFICANT CHANGE WAS FOUND Confirmed by ROXANNE HAIRSTON MD ([id number]) on 09/25/2017 10:45:43 AM Referred By: Confirmed By:ROXANNE HAIRSTON MD
--- NOTE | 2017-09-25 11:12 | HP ---
Psychiatrist Admission - Data Date of interview: 09/25/17 Admission source: [facility] Identifying data: This is one of the several admission [facility] admission for this 66 years old male, father of a 26 years old daughter, unemployed on SSD, homeless Medical History: Significant for COPD and a history of orthosurgery for right knee replacement in December 2009. Smokes 8 cigarettes daily Psychiatric History: Patient reports was diagnosed with depression and anxiey, first psychiatric treatment in 2003, saw the private psychiatrist to address depression related to major life stressors(divorce, lossing job and apartment on [address]), was treated with Cymbalta, tried Seroquel was very sedated, Trazodone, Ambien for insomnia. Reports no history of psychiatric hospitalizations, reports was started Wellbutrin 100 mg po daily and feels medication was effective for depression and also helped him with smoking cessation. Physical/Sexual Abuse/Trauma History: Denies history of sexual, abuse, traaumatized by his divorce and separation from his daughter(lives in [place] and having a problems with addiction). Vital Signs: Vital Signs - 24 hr 09/24/17 09/24/17 09/25/17 11:09 17:00 00:30 Temperature 97.2 F L 97.4 F L Pulse Rate 57 L Respiratory 20 56 H 18 Rate Blood Pressure 135/80 122/79 09/25/17 09/25/17 03:30 06:48 Temperature 98.0 F Pulse Rate 56 L Respiratory 18 18 Rate Blood Pressure 121/68 Allergies/Adverse Reactions: Allergies Allergy/AdvReac Type Severity Reaction Status Date / Time Penicillins Allergy Severe Swelling Verified 09/24/17 16:18 - Substance Abuse/Tx History Hx Alcohol Use: Yes Hx Substance Use: Yes Substance Use Type: Alcohol (1pint of bourbon), Cocaine ($200 daily use) Hx Substance Use Treatment: Yes (several [facility] rehab, [facility] rehab.) Mental Status Exam - Mental Status Exam Alert and Oriented to: Time, Place, Person Cognitive Function: Good Patient Appearance: Well Groomed Mood: Depressed, Sad Affect: Appropriate, Mood Congruent Patient Behavior: Appropriate, Cooperative Speech Pattern: Clear Voice Loudness: Normal Thought Process: Intact, Goal Oriented Thought Disorder: Not Present Hallucinations: Denies Suicidal Ideation: Denies Homicidal Ideation: Denies Insight/Judgement: Fair Sleep: Fair Appetite: Good Muscle strength/Tone: Normal Gait/Station: Normal Psychiatric Findings - Problem List ([place] 1, 2,3) (1) MDD (major depressive disorder) Current Visit: Yes Status: Acute (2) Nicotine dependence Current Visit: Yes Status: Acute Qualifiers: Nicotine product type: cigarettes Substance use status: in withdrawal Qualified Code(s): F17.213 - Nicotine dependence, cigarettes, with withdrawal Comment: . (3) Alcohol dependence Current Visit: No Status: Chronic Qualifiers: Substance use status: alcohol-induced sleep disorder Qualified Code(s): F10.282 - Alcohol dependence with alcohol-induced sleep disorder Comment: . - Initial Treatment Plan Initial Treatment Plan: will restart Wellbutrin 100 mg po daily, monitor progress as needed.
[2017-09-25] MEDS: THIAMINE HCL 100 MG TABLET (FP) PO SCH (22:03)
[2017-09-25] MEDS: hydrOXYzine PAMOATE 50 MG CAPSULE (FP) PO PRN (22:04)
[2017-09-26] MEDS: buPROPion HCL 100 MG TABLET PO SCH (06:24)
[2017-09-26] MEDS: PRENATAL VITAMINS W/ FOLIC ACID TABLET (FP) PO SCH (10:30)
[2017-09-26] MEDS: NICOTINE 14 MG/24 HOURS TOPICAL PATCH TD SCH (10:30)
[2017-09-26] MEDS: THIAMINE HCL 100 MG TABLET (FP) PO SCH (21:50)
[2017-09-26] MEDS: hydrOXYzine PAMOATE 50 MG CAPSULE (FP) PO PRN (21:50)
[2017-09-27] MEDS: buPROPion HCL 100 MG TABLET PO SCH (06:10)
[2017-09-27] MEDS: NICOTINE 14 MG/24 HOURS TOPICAL PATCH TD SCH (10:19)
[2017-09-27] MEDS: PRENATAL VITAMINS W/ FOLIC ACID TABLET (FP) PO SCH (10:19)
[2017-09-27] MEDS: THIAMINE HCL 100 MG TABLET (FP) PO SCH (21:39)
[2017-09-27] MEDS: hydrOXYzine PAMOATE 50 MG CAPSULE (FP) PO PRN (21:40)
[2017-09-28] MEDS: buPROPion HCL 100 MG TABLET PO SCH (06:33)
[2017-09-28] MEDS: NICOTINE 14 MG/24 HOURS TOPICAL PATCH TD SCH (10:27)
[2017-09-28] MEDS: PRENATAL VITAMINS W/ FOLIC ACID TABLET (FP) PO SCH (10:28)
[2017-09-28] MEDS: hydrOXYzine PAMOATE 50 MG CAPSULE (FP) PO PRN (21:29)
[2017-09-28] MEDS: THIAMINE HCL 100 MG TABLET (FP) PO SCH (21:29)
[2017-09-29] MEDS: buPROPion HCL 100 MG TABLET PO SCH (07:08)
[2017-09-29] MEDS: PRENATAL VITAMINS W/ FOLIC ACID TABLET (FP) PO SCH (10:15)
[2017-09-29] MEDS: NICOTINE 14 MG/24 HOURS TOPICAL PATCH TD SCH (10:15)
[2017-09-29] MEDS: hydrOXYzine PAMOATE 50 MG CAPSULE (FP) PO PRN (21:31)
[2017-09-29] MEDS: THIAMINE HCL 100 MG TABLET (FP) PO SCH (21:31)
[2017-09-30] MEDS: buPROPion HCL 100 MG TABLET PO SCH (06:19)
[2017-09-30] MEDS: NICOTINE 14 MG/24 HOURS TOPICAL PATCH TD SCH (10:37)
[2017-09-30] MEDS: PRENATAL VITAMINS W/ FOLIC ACID TABLET (FP) PO SCH (10:37)
[2017-09-30] MEDS: hydrOXYzine PAMOATE 50 MG CAPSULE (FP) PO PRN (21:49)
[2017-09-30] MEDS: THIAMINE HCL 100 MG TABLET (FP) PO SCH (21:49)
[2017-10-01] MEDS: buPROPion HCL 100 MG TABLET PO SCH (06:45)
[2017-10-01] MEDS: PRENATAL VITAMINS W/ FOLIC ACID TABLET (FP) PO SCH (10:23)
[2017-10-01] MEDS: NICOTINE 14 MG/24 HOURS TOPICAL PATCH TD SCH (10:23)
[2017-10-01] MEDS: THIAMINE HCL 100 MG TABLET (FP) PO SCH (21:50)
[2017-10-01] MEDS: hydrOXYzine PAMOATE 50 MG CAPSULE (FP) PO PRN (21:50)
[2017-10-02] MEDS: buPROPion HCL 100 MG TABLET PO SCH (05:52)
[2017-10-02] MEDS: PRENATAL VITAMINS W/ FOLIC ACID TABLET (FP) PO SCH (10:51)
[2017-10-02] MEDS: NICOTINE 14 MG/24 HOURS TOPICAL PATCH TD SCH (10:51)
[2017-10-02] MEDS: hydrOXYzine PAMOATE 50 MG CAPSULE (FP) PO PRN (21:41)
[2017-10-02] MEDS: THIAMINE HCL 100 MG TABLET (FP) PO SCH (21:41)
[2017-10-03] MEDS: buPROPion HCL 100 MG TABLET PO SCH (06:09)
[2017-10-03] MEDS: PRENATAL VITAMINS W/ FOLIC ACID TABLET (FP) PO SCH (10:31)
[2017-10-03] MEDS: NICOTINE 14 MG/24 HOURS TOPICAL PATCH TD SCH (10:31)
[2017-10-03] MEDS: THIAMINE HCL 100 MG TABLET (FP) PO SCH (21:59)
[2017-10-03] MEDS: hydrOXYzine PAMOATE 50 MG CAPSULE (FP) PO PRN (21:59)
[2017-10-04] MEDS: buPROPion HCL 100 MG TABLET PO SCH (05:36)
[2017-10-04] MEDS: PRENATAL VITAMINS W/ FOLIC ACID TABLET (FP) PO SCH (10:34)
[2017-10-04] MEDS: NICOTINE 14 MG/24 HOURS TOPICAL PATCH TD SCH (10:34)
[2017-10-04] MEDS: THIAMINE HCL 100 MG TABLET (FP) PO SCH (21:37)
[2017-10-04] MEDS: hydrOXYzine PAMOATE 50 MG CAPSULE (FP) PO PRN (21:37)
[2017-10-05] MEDS: buPROPion HCL 100 MG TABLET PO SCH (06:08)
[2017-10-05] MEDS: PRENATAL VITAMINS W/ FOLIC ACID TABLET (FP) PO SCH (10:33)
[2017-10-05] MEDS: NICOTINE 14 MG/24 HOURS TOPICAL PATCH TD SCH (10:33)
[2017-10-05] MEDS: THIAMINE HCL 100 MG TABLET (FP) PO SCH (21:41)
[2017-10-05] MEDS: hydrOXYzine PAMOATE 50 MG CAPSULE (FP) PO PRN (21:41)
[2017-10-06] MEDS: buPROPion HCL 100 MG TABLET PO SCH (06:08)
[2017-10-06] MEDS: NICOTINE 14 MG/24 HOURS TOPICAL PATCH TD SCH (10:25)
[2017-10-06] MEDS: PRENATAL VITAMINS W/ FOLIC ACID TABLET (FP) PO SCH (10:25)
[2017-10-06] MEDS: THIAMINE HCL 100 MG TABLET (FP) PO SCH (21:45)
[2017-10-06] MEDS: hydrOXYzine PAMOATE 50 MG CAPSULE (FP) PO PRN (21:45)
[2017-10-07] MEDS: buPROPion HCL 100 MG TABLET PO SCH (06:44)
[2017-10-07] MEDS: NICOTINE 14 MG/24 HOURS TOPICAL PATCH TD SCH (10:45)
[2017-10-07] MEDS: PRENATAL VITAMINS W/ FOLIC ACID TABLET (FP) PO SCH (10:45)
--- NOTE | 2017-10-07 14:01 | PN ---
Psychiatric Progress Note Vital Signs: Vital Signs Period Temp Pulse Resp BP Sys/Mackey Pulse Ox Last 24 Hr 97.7 F 60 18-18 117/64 Date of Session: 10/07/17 Chief Complaint:: progress updat HPI: Patient is addressing alcohol, nicotine dependence comorbid MDD. ROS: WNL Current Medications: Active Medications Generic Name Dose Route Start Last Admin Trade Name Freq PRN Reason Stop Dose Admin Acetaminophen 650 mg 09/24/17 12:54 Tylenol - PO Q4H PRN FEVER Al Hydroxide/Mg Hydroxide 30 ml 09/24/17 12:54 09/28/17 13:19 Mylanta Oral Suspension - PO 30 ml Q6H PRN Administration DYSPEPSIA Bupropion HCl 100 mg 09/26/17 06:00 10/07/17 06:44 Wellbutrin - PO 100 mg DAILY@0600 [facility] Administration Eucalyptus/Menthol/Phenol/Sorbitol 1 each 09/24/17 12:54 Cepastat Lozenge - MM Q4H PRN SORE THROAT Guaifenesin 10 ml 09/24/17 12:54 Robitussin Dm - PO Q6H PRN COUGH Hydroxyzine Pamoate 50 mg 09/24/17 12:54 10/06/17 21:45 Vistaril - PO 50 mg Q4H PRN Administration AGITATION Ibuprofen 400 mg 09/24/17 12:54 Motrin - PO Q6H PRN Pain level 4-6 Loperamide HCl 4 mg 09/24/17 12:54 Imodium - PO Q6H PRN DIARRHEA Magnesium Citrate 300 ml 09/24/17 12:54 Citroma - PO Q48H PRN CONSTIPATION Magnesium Hydroxide 30 ml 09/24/17 12:54 Milk Of Magnesia - PO DAILY PRN CONSTIPATION Nicotine 14 mg 09/24/17 15:45 10/07/17 10:45 Nicoderm Patch - TD Not Given DAILY TRISTIN Nicotine Polacrilex 2 mg 09/24/17 12:54 Nicorette Gum - BUC Q2H PRN NICOTINE REPLACEMENT RX Multivit/Folic Acid/Iron 1 tab 09/25/17 10:00 10/07/17 10:45 Vitamins (Sjr) - PO 1 tab DAILY TRISTIN Administration Pseudoephedrine/Triprolidine 1 combo 09/24/17 12:54 Actifed - PO TID PRN NASAL CONGESTION Thiamine HCl 100 mg 09/24/17 22:00 10/06/17 21:45 Vitamin B1 - PO 100 mg HS TRISTIN Administration Current Side Effect: No Lab tests ordered: No Lab tests reviewed: Yes Provider note:: Patient generally adjusted well to the unit, attends and participates in groups, medical staff requested to see the patient to clarify his medication (welbutrin) time, patient reports that he prefers to take medication at 6am, he ahs no complaints , no side-effctes, he spoke today about his interpersonal issues, feeling of sadness predominated in this session, supportive therapy provided, will continue to monitor progress. Total face to face time:: 30 Mental Status Exam - Mental Status Exam Alert and Oriented to: Time, Place, Person Cognitive Function: Good Patient Appearance: Well Groomed Mood: Sad Affect: Mood Congruent Patient Behavior: Appropriate, Cooperative Speech Pattern: Clear, Appropriate Voice Loudness: Normal Thought Process: Intact, Goal Oriented Thought Disorder: Not Present Hallucinations: Denies Suicidal Ideation: Denies Homicidal Ideation: Denies Insight/Judgement: Fair Sleep: Fair Appetite: Fair Muscle strength/Tone: Normal Gait/Station: Normal Psychiatric Treatment Plan - Problem List (1) MDD (major depressive disorder) Current Visit: Yes (2) Nicotine dependence Current Visit: Yes Qualifiers: Nicotine product type: cigarettes Substance use status: in withdrawal Qualified Code(s): F17.213 - Nicotine dependence, cigarettes, with withdrawal Comment: . (3) Alcohol dependence Current Visit: No Qualifiers: Substance use status: alcohol-induced sleep disorder Qualified Code(s): F10.282 - Alcohol dependence with alcohol-induced sleep disorder Comment: .
[2017-10-07] MEDS: hydrOXYzine PAMOATE 50 MG CAPSULE (FP) PO PRN (21:46)
[2017-10-07] MEDS: THIAMINE HCL 100 MG TABLET (FP) PO SCH (21:46)
[2017-10-08] MEDS: buPROPion HCL 100 MG TABLET PO SCH (06:03)
[2017-10-08] MEDS: NICOTINE 14 MG/24 HOURS TOPICAL PATCH TD SCH (10:31)
[2017-10-08] MEDS: PRENATAL VITAMINS W/ FOLIC ACID TABLET (FP) PO SCH (10:31)
[2017-10-08] MEDS: THIAMINE HCL 100 MG TABLET (FP) PO SCH (21:36)
[2017-10-08] MEDS: hydrOXYzine PAMOATE 50 MG CAPSULE (FP) PO PRN (21:36)
[2017-10-09] MEDS: buPROPion HCL 100 MG TABLET PO SCH (06:02)
[2017-10-09] MEDS: PRENATAL VITAMINS W/ FOLIC ACID TABLET (FP) PO SCH (10:42)
[2017-10-09] MEDS: NICOTINE 14 MG/24 HOURS TOPICAL PATCH TD SCH (10:42)
[2017-10-09] MEDS: THIAMINE HCL 100 MG TABLET (FP) PO SCH (21:40)
[2017-10-09] MEDS: hydrOXYzine PAMOATE 50 MG CAPSULE (FP) PO PRN (21:40)
[2017-10-10] MEDS: buPROPion HCL 100 MG TABLET PO SCH (06:03)
[2017-10-10] MEDS: PRENATAL VITAMINS W/ FOLIC ACID TABLET (FP) PO SCH (10:33)
[2017-10-10] MEDS: NICOTINE 14 MG/24 HOURS TOPICAL PATCH TD SCH (10:33)
[2017-10-10] MEDS: THIAMINE HCL 100 MG TABLET (FP) PO SCH (21:38)
[2017-10-10] MEDS: hydrOXYzine PAMOATE 50 MG CAPSULE (FP) PO PRN (21:40)
[2017-10-11] MEDS: buPROPion HCL 100 MG TABLET PO SCH (05:58)
[2017-10-11] MEDS: PRENATAL VITAMINS W/ FOLIC ACID TABLET (FP) PO SCH (10:33)
[2017-10-11] MEDS: NICOTINE 14 MG/24 HOURS TOPICAL PATCH TD SCH (10:33)
[2017-10-11] MEDS: hydrOXYzine PAMOATE 50 MG CAPSULE (FP) PO PRN (21:40)
[2017-10-11] MEDS: THIAMINE HCL 100 MG TABLET (FP) PO SCH (21:41)
[2017-10-12] MEDS: buPROPion HCL 100 MG TABLET PO SCH (06:09)
[2017-10-12] MEDS: NICOTINE 14 MG/24 HOURS TOPICAL PATCH TD SCH (10:40)
[2017-10-12] MEDS: PRENATAL VITAMINS W/ FOLIC ACID TABLET (FP) PO SCH (10:40)
[2017-10-12] MEDS: THIAMINE HCL 100 MG TABLET (FP) PO SCH (22:08)
[2017-10-12] MEDS: hydrOXYzine PAMOATE 50 MG CAPSULE (FP) PO PRN (22:09)
[2017-10-13] MEDS: buPROPion HCL 100 MG TABLET PO SCH (06:35)
[2017-10-13] MEDS: PRENATAL VITAMINS W/ FOLIC ACID TABLET (FP) PO SCH (10:51)
[2017-10-13] MEDS: NICOTINE 14 MG/24 HOURS TOPICAL PATCH TD SCH (10:52)
[2017-10-13] MEDS: THIAMINE HCL 100 MG TABLET (FP) PO SCH (22:10)
[2017-10-13] MEDS: hydrOXYzine PAMOATE 50 MG CAPSULE (FP) PO PRN (22:10)
[2017-10-14] MEDS: buPROPion HCL 100 MG TABLET PO SCH (06:10)
[2017-10-14] MEDS: NICOTINE 14 MG/24 HOURS TOPICAL PATCH TD SCH (10:54)
[2017-10-14] MEDS: PRENATAL VITAMINS W/ FOLIC ACID TABLET (FP) PO SCH (10:54)
[2017-10-14] MEDS: THIAMINE HCL 100 MG TABLET (FP) PO SCH (21:46)
[2017-10-14] MEDS: hydrOXYzine PAMOATE 50 MG CAPSULE (FP) PO PRN (21:46)
[2017-10-15] MEDS: buPROPion HCL 100 MG TABLET PO SCH (06:18)
[2017-10-15] MEDS: PRENATAL VITAMINS W/ FOLIC ACID TABLET (FP) PO SCH (10:39)
[2017-10-15] MEDS: NICOTINE 14 MG/24 HOURS TOPICAL PATCH TD SCH (10:39)
[2017-10-15] MEDS: hydrOXYzine PAMOATE 50 MG CAPSULE (FP) PO PRN (21:26)
[2017-10-15] MEDS: THIAMINE HCL 100 MG TABLET (FP) PO SCH (21:26)
[2017-10-16] MEDS: buPROPion HCL 100 MG TABLET PO SCH (05:57)
[2017-10-16] MEDS: PRENATAL VITAMINS W/ FOLIC ACID TABLET (FP) PO SCH (10:29)
[2017-10-16] MEDS: NICOTINE 14 MG/24 HOURS TOPICAL PATCH TD SCH (10:29)
[2017-10-16] MEDS: THIAMINE HCL 100 MG TABLET (FP) PO SCH (21:42)
[2017-10-16] MEDS: hydrOXYzine PAMOATE 50 MG CAPSULE (FP) PO PRN (21:42)
[2017-10-17] MEDS: buPROPion HCL 100 MG TABLET PO SCH (06:22)
[2017-10-17] MEDS: PRENATAL VITAMINS W/ FOLIC ACID TABLET (FP) PO SCH (09:59)
[2017-10-17] MEDS: NICOTINE 14 MG/24 HOURS TOPICAL PATCH TD SCH (10:00)
--- NOTE | 2017-10-17 15:19 | PN ---
S Progress Note Note: CALL TO EVALUATE PATIENT AFTER A FALL ALERT,NO HEAD INJURY,NO COMPLAINT NO INJURY NOTED KNEEL DOWN ON LEFT KNEE BP 110/70,P60,R20,T98.4 TREATMENT OBSERVATION FALL PRECAUTION INITIATE FALL RPOTOCOL 2
[2017-10-17] MEDS: THIAMINE HCL 100 MG TABLET (FP) PO SCH (21:58)
[2017-10-17] MEDS: hydrOXYzine PAMOATE 50 MG CAPSULE (FP) PO PRN (21:59)
--- NOTE | 2017-10-17 23:47 | PN ---
[facility] Progress Note Note: Reported received from SNOW Zaman re: patient has an irregular pulse rate on palpation of radial artery. Patient evaluated by the bedside, reports suffering from a fall earlier today. Patient in no apparent distress, denies chest pain, SOB, dyspnea or headache. On assessment no significant findings present. Increase fluids Continue to monitor
[2017-10-18] MEDS: buPROPion HCL 100 MG TABLET PO SCH (05:59)
[2017-10-18] MEDS: PRENATAL VITAMINS W/ FOLIC ACID TABLET (FP) PO SCH (09:50)
[2017-10-18] MEDS: NICOTINE 14 MG/24 HOURS TOPICAL PATCH TD SCH (09:51)
[2017-10-18] MEDS: hydrOXYzine PAMOATE 50 MG CAPSULE (FP) PO PRN (21:33)
[2017-10-18] MEDS: THIAMINE HCL 100 MG TABLET (FP) PO SCH (21:33)
[2017-10-19] MEDS: buPROPion HCL 100 MG TABLET PO SCH (06:03)
[2017-10-19] MEDS: PRENATAL VITAMINS W/ FOLIC ACID TABLET (FP) PO SCH (10:28)
[2017-10-19] MEDS: NICOTINE 14 MG/24 HOURS TOPICAL PATCH TD SCH (10:28)
[2017-10-19] MEDS: THIAMINE HCL 100 MG TABLET (FP) PO SCH (21:36)
[2017-10-19] MEDS: hydrOXYzine PAMOATE 50 MG CAPSULE (FP) PO PRN (21:37)
[2017-10-20] MEDS: buPROPion HCL 100 MG TABLET PO SCH (06:03)
[2017-10-20] MEDS: NICOTINE 14 MG/24 HOURS TOPICAL PATCH TD SCH (10:16)
[2017-10-20] MEDS: PRENATAL VITAMINS W/ FOLIC ACID TABLET (FP) PO SCH (10:16)
[2017-10-20] MEDS: THIAMINE HCL 100 MG TABLET (FP) PO SCH (21:42)
[2017-10-20] MEDS: hydrOXYzine PAMOATE 50 MG CAPSULE (FP) PO PRN (21:42)
[2017-10-21] MEDS: buPROPion HCL 100 MG TABLET PO SCH (05:59)
[2017-10-21 06:58] VITALS: BP 115/81; PULSE 56; TEMP 97.6
[2017-10-21] MEDS: NICOTINE 14 MG/24 HOURS TOPICAL PATCH TD SCH (10:17)
[2017-10-21] MEDS: PRENATAL VITAMINS W/ FOLIC ACID TABLET (FP) PO SCH (10:17)
--- NOTE | 2017-10-21 13:55 | PN ---
Psychiatric Progress Note Vital Signs: Vital Signs Period Temp Pulse Resp BP Sys/Mackey Pulse Ox Last 24 Hr 97.6 F 56 16-18 115/81 Date of Session: 10/21/17 Chief Complaint:: discharge visit HPI: The patient has adressed alcohol, nicotine dependence comorbid MDD. ROS: WNL Current Side Effect: No Lab tests ordered: No Lab tests reviewed: Yes Provider note:: Patient has completed today his treatment and met his goals, will continue to address his issues at [facility] outpatient treatment program. Patient reports feeling much better. Patient focused on importance to continue maintain abstinence, utilizing all supports available to prevent relapses, patient was encouraged to use alternative ways to cope with stressors , scripts for Wellbutrin transferred to the pharmacy. Patient is stable for discharge today. Total face to face time:: 20 Mental Status Exam - Mental Status Exam Alert and Oriented to: Time, Place, Person Cognitive Function: Good Patient Appearance: Well Groomed Mood: Hopeful Affect: Appropriate, Mood Congruent Patient Behavior: Appropriate, Cooperative Speech Pattern: Clear, Appropriate Voice Loudness: Normal Thought Process: Intact, Goal Oriented Thought Disorder: Not Present Hallucinations: Denies Suicidal Ideation: Denies Homicidal Ideation: Denies Insight/Judgement: Fair Sleep: Fair Appetite: Fair Muscle strength/Tone: Normal Gait/Station: Normal Psychiatric Treatment Plan - Problem List (2) Nicotine dependence Qualifiers: Nicotine product type: cigarettes Substance use status: in withdrawal Qualified Code(s): F17.213 - Nicotine dependence, cigarettes, with withdrawal Comment: . (3) Alcohol dependence Qualifiers: Substance use status: alcohol-induced sleep disorder Qualified Code(s): F10.282 - Alcohol dependence with alcohol-induced sleep disorder Comment: .
== END 2017-10-21 11:05 | disposition home or self-care (01) | DRG 895 ==
LOC: YASAS 10:02 → Y5N 15:22
PROVIDERS: ADMIT Psychiatry & Neurology Psychiatry; ATTEND Psychiatry & Neurology Psychiatry
PROC: HZ42ZZZ Group Counseling for Substance Abuse Treatment, Cognitive-Behavioral (ICD-10-PCS; principal; 2017-09-24)
DX: F19.20 Other psychoactive substance dependence, uncomplicated (principal); F33.9 Major depressive disorder, recurrent, unspecified; F10.20 Alcohol dependence, uncomplicated; F17.210 Nicotine dependence, cigarettes, uncomplicated; J44.9 Chronic obstructive pulmonary disease, unspecified; R00.2 Palpitations; Z88.0 Allergy status to penicillin; Z96.651 Presence of right artificial knee joint; Z59.0 Homelessness; Z91.81 History of falling; W19.XXXA Unspecified fall, initial encounter; Y93.9 Activity, unspecified; Y92.239 Unspecified place in hospital as the place of occurrence of the external cause; Y99.8 Other external cause status
CPT/HCPCS: 36415; 80053; 81003; 85027; 86593; 93005; 93010

== ENCOUNTER 2017-12-28 10:59 | Inpatient (IN) | payer OTHER ==
[2017-12-28 13:22] VITALS: BMI 29.0
--- NOTE | 2017-12-28 16:28 | HP ---
<Priscilla Betancourt - Last Filed: 12/28/17 16:18> CIWA Score - CIWA Score Nausea/Vomitin Muscle Tremors: 4-Moderate,w/Arms Extend Anxiety: 3 Agitation: 4-Moderately Restless Paroxysmal Sweats: 3 Orientation: 0-Oriented Tacttile Disturbances: 1-Very Mild Itch/Numbness Auditory Disturbances: 0-None Visual Disturbances: 0-None Headache: 0-None Present CIWA-Ar Total Score: 17 Admission ROS S - HPI Chief Complaint: "I want to try one more time to stop" Allergies/Adverse Reactions: Allergies Allergy/AdvReac Type Severity Reaction Status Date / Time Penicillins Allergy Severe Swelling Verified 12/28/17 15:30 History of Present Illness: 67 y/o male with a long hx of alcohol addiction seeking detox today. Pt has had other detox and rehab experiences. Last here in Sep 2017. Last drink was about 2 hours ago while he was waiting. Denies any medical hx. Admits to a hx of depression but states he is not on meds for it. Denies SI/HI Exam Limitations: Intoxication - Ebola screening Have you traveled outside of the country in the last 21 days: No (N) Have you had contact with anyone from an Ebola affected area: No Have you been sick,other than usual withdrawal symptoms: No Do you have a fever: No - Review of Systems Constitutional: No Symptoms Reported EENT: reports: Other (missing teeth but states his partial is not here with him) Respiratory: reports: No Symptoms reported Cardiac: reports: No Symptoms Reported GI: reports: No Symptoms Reported : reports: No Symptoms Reported Musculoskeletal: reports: No Symptoms Reported Integumentary: reports: No Symptoms Reported Neuro: reports: Numbness (to feet and hands x few days) Endocrine: reports: No Symptoms Reported Hematology: reports: No Symptoms Reported Psychiatric: reports: Agitated, Anxious Other Systems: Reviewed and Negative Patient History - Patient Medical History Hx Anemia: No Hx Asthma: Yes (Not on meds) Hx Chronic Obstructive Pulmonary Disease (COPD): No Hx Cancer: No Hx Cardiac Disorders: No Hx Congestive Heart Failure: No Hx Hypertension: No Hx Hypercholesterolemia: No Hx Pacemaker: No HX Cerebrovascular Accident: No Hx Seizures: No Hx Dementia: No Hx Diabetes: No Hx Gastrointestinal Disorders: No Hx Liver Disease: No Hx Genitourinary Disorders: No Hx Sexually Transmitted Disorders: No Hx Renal Disease (ESRD): No Hx Thyroid Disease: No Hx Human Immunodeficiency Virus (HIV): No Hx Hepatitis C: No Hx Depression: Yes Hx Suicide Attempt: No Hx Bipolar Disorder: Yes (ON WELBUTRIN, not taking it anymore) Hx Schizophrenia: No - Patient Surgical History Past Surgical History: Yes Hx Neurologic Surgery: No Hx Cataract Extraction: No Hx Cardiac Surgery: No Hx Lung Surgery: No Hx Breast Surgery: No Hx Breast Biopsy: No Hx Abdominal Surgery: No Hx Appendectomy: No Hx Cholecystectomy: No Hx Genitourinary Surgery: No Hx Section: No Hx Orthopedic Surgery: Yes (Right knee replacement in 12/17) Anesthesia Reaction: No - PPD History Previous Implant?: Yes Documented Results: Negative w/proof Date: 03/25/17 Results: 0 mm - Smoking Cessation Smoking history: Current every day smoker Have you smoked in the past 12 months: Yes Aproximately how many cigarettes per day: 8 Cigars Per Day: 0 Hx Chewing Tobacco Use: No Initiated information on smoking cessation: Yes 'Breaking Loose' booklet given: 12/28/17 - Substance & Tx. History Hx Alcohol Use: Yes (Whiskey, [place]) Hx Substance Use: Yes (Cocaine) Substance Use Type: Alcohol (bourbon, whiskey a pint a day) Hx Substance Use Treatment: Yes (cocaine - sometimes) - Substances Abused Alcohol Route: Oral Frequency: Daily Amount used: LIQUOR- 2 PINT, BEER- 1 SIX PACK Age of first use: 20 Date of Last Use: 12/28/17 Cocaine Route: Smoking Frequency: Daily Amount used: 20 BAGS Age of first use: 60 Date of Last Use: 12/28/17 Family Disease History - Family Disease History Family Disease History: Heart Disease: Grandparent (grandfather etoh, ), Father (, COPD), Mother (, RA), CA: Grandparent, Respiratory: Father, Other: Grandparent, Mother, Sister (alive, healthy, etoh), Daughter (one,living , healthy) Admission Physical Exam [facility] - Vital Signs Vital Signs: Vital Signs - 24 hr 12/28/17 13:20 Temperature 96.7 F L Pulse Rate 85 Respiratory 20 Rate Blood Pressure 146/91 - Physical General Appearance: Yes: Moderate Distress, Alcohol on Breath, Irritable, Anxious HEENTM: Yes: Within Normal Limits Respiratory: Yes: Lungs Clear, Normal Breath Sounds, No Respiratory Distress Neck: Yes: Within Normal Limits, No masses,lesions,Nodules Breast: Yes: Breast Exam Deferred Cardiology: Yes: S1, S2, Tachycardia Abdominal: Yes: Non Tender Genitourinary: Yes: Within Normal Limits Back: Yes: Within Normal Limits, Normal Inspection Musculoskeletal: Yes: full range of Motion, Gait Steady Extremities: Yes: Normal Capillary Refill, Tremors Neurological: Yes: Fully Oriented, Alert Integumentary: Yes: Within Normal Limits Lymphatic: Yes: Within Normal Limits - Diagnostic (1) Alcohol dependence with uncomplicated withdrawal Current Visit: No Status: Chronic (2) Nicotine dependence Current Visit: No Status: Acute QualifierTitle: Nicotine product type: cigarettes Substance use status: in withdrawal Qualified Code(s): F17.213 - Nicotine dependence, cigarettes, with withdrawal Comment: . (3) History of COPD Current Visit: No Status: Chronic (4) Insomnia Current Visit: No Status: Chronic (5) Other and unspecified alcohol dependence, episodic drinking behavior Current Visit: No Status: Chronic Cleared for Admission [facility] - Detox or Rehab [facility] Level of Care: Medically Managed Detox Regimen/Protocol: Librium [facility] Breath Alcohol Content Breath Alcohol Content: 0.293 Urine Drug Screen - Results Drug Screen Negative: No Urine Drug Screen Results: [place]-Cocaine <Zachery Santoyo - Last Filed: 12/28/17 20:31> Admission Physical Exam [facility] - Vital Signs Vital Signs: Vital Signs - 24 hr 12/28/17 12/28/17 13:20 17:46 Temperature 96.7 F L 99.0 F Pulse Rate 85 77 Respiratory 20 16 Rate Blood Pressure 146/91 132/75 - Physical Integumentary: Yes: Other (poor skin turgor) - Diagnostic (1) Dehydration Current Visit: Yes Status: Acute (2) MDD (major depressive disorder) Current Visit: No Status: Acute (3) Alcohol-induced mood disorder Current Visit: No Status: Suspected
[2017-12-28] MEDS ORDERED: guaiFENesin/D-METHORPHAN HB 10 ML UNIT-DOSE CUPS PO PRN (17:00)
[2017-12-28] MEDS ORDERED: NICOTINE 14 MG/24 HOURS TOPICAL PATCH TD SCH (17:00)
[2017-12-28] MEDS ORDERED: MAG HYDROX/AL HYDROX/SIMETH 30 ML UNIT-DOSE CUP PO PRN (17:00)
[2017-12-28] MEDS ORDERED: P-EPHED 60MG/TRIPROLIDI 2.5MG TABLET PO PRN (17:00)
[2017-12-28] MEDS ORDERED: ACETAMINOPHEN 325 MG TABLET (FP) PO PRN (17:00)
[2017-12-28] MEDS ORDERED: MENTHOL/PHENOL 1 EACH UD MM PRN (17:00)
[2017-12-28] MEDS ORDERED: IBUPROFEN 400 MG TABLET (FP) PO PRN (17:00)
[2017-12-28] MEDS ORDERED: MAGNESIUM HYDROX 2400MG/30ML ORAL SUSPENSION 30 ML CUP PO PRN (17:00)
[2017-12-28] MEDS ORDERED: hydrOXYzine PAMOATE 25 MG CAPSULE (FP) PO PRN (17:00)
[2017-12-28] MEDS ORDERED: LOPERAMIDE HCL 2 MG CAPSULE PO PRN (17:00)
[2017-12-28] MEDS ORDERED: MAGNESIUM CITRATE 300 ML BOTTLE PO PRN (17:00)
[2017-12-28] MEDS ORDERED: chlordiazePOXIDE HCL 25 MG CAPSULE PO PRN (17:00)
[2017-12-28] MEDS: chlordiazePOXIDE HCL 25 MG CAPSULE PO SCH (18:10)
--- NOTE | 2017-12-28 19:17 | PN ---
S Progress Note Note: Provider called to evaluate for abnormal EKG. Pt on bed in his room at this time states he feels fine denies any chest pain nor discomfort. No SOB noted, states the librium he was given has helped him and he wants to sleep. Pt educated to let nurse know if he feels any new symptoms. Verbalized understanding. SNOW Juarez updated. EKG to be repeated
[2017-12-28] MEDS ORDERED: ALBUTEROL SO4 2.5/IPRATROPIUM 0.5 INH SOL 3 ML VIAL.NEB. NEB PRN (20:24)
[2017-12-28 20:42] VITALS: BP 118/70; PULSE 142; TEMP 98
--- NOTE | 2017-12-28 20:47 | PN ---
S Progress Note Note: ASKED TO SEE PT FOR C/O SOB AND CHEST DISCOMFORT. PATIENT REPORTS "I FEEL MY HEART RACING IN MY CHEST AND I CANT CATCH MY BREATH" "I HAVE COPD AND ASTHMA" DENIES C.P. N/V/D, FEVER, CHILLS,VISUAL DISTURBANCES OR WEAKNESS AWAKE ALERT A/O X3 MILD DISTRESS, WALKING ON UNIT DESPITE ASKING CLIENT TO REMAIN SEATED OR IN BED. HEENT- NCAT,PERRLA, NEG JVD CV- VISUAL PULSATIONS OF CHEST REG/IRREG/TACHY LUNGS- CTAB 02 SAT RA 98 % EXTREMITIES- NEG EDEMA EKG AT 17:16 TODAY AFIB WITH RAPID VENTRICULAR REPONSE VENT RATE 142 ABNORMAL ECG CLIENT STATES "I THINK I WAS TOLD MAYBE I HAD AFIB" DENIES ANY MEDS OR CARDIAC F /U Vital Signs - 8 hr 12/28/17 12/28/17 12/28/17 13:20 17:46 20:40 Temperature 96.7 F L 99.0 F 98 F Pulse Rate 85 77 142 H Respiratory 20 16 21 Rate Blood Pressure 146/91 132/75 118/70 S/P NEB TXMENT W/O RELIEF REPEAT EKG UNDETERMINED RHYTHM A- NEW ONSET AFIB, ABN EKG P- TRANSFER CLIENT TO [facility] FOR EVAL REPORT GIVEN TO DR. KURT PERALTA CALLED NOTE W/ AFIB W/ RVR CONVERTED AFTER 25 MG OF CARDIZEM
[2017-12-28] MEDS ORDERED: THIAMINE HCL 100 MG TABLET (FP) PO SCH (22:00)
[2017-12-28] MEDS ORDERED: MELATONIN 5 MG TABLETS PO PRN (22:00)
[2017-12-29] MEDS: chlordiazePOXIDE HCL 25 MG CAPSULE PO SCH (00:09)
--- NOTE | 2017-12-29 08:33 | EKG ---
Test Reason : Blood Pressure : / mmHG Vent. Rate : 142 BPM Atrial Rate : 098 BPM P-R Int : 000 ms QRS Dur : 080 ms QT Int : 290 ms P-R-T Axes : 000 -05 052 degrees QTc Int : 446 ms ATRIAL FIBRILLATION WITH RAPID VENTRICULAR RESPONSE ABNORMAL ECG WHEN COMPARED WITH ECG OF 24-SEP-2017 23:38, ATRIAL FIBRILLATION HAS REPLACED SINUS RHYTHM VENT. RATE HAS INCREASED BY 93 BPM Confirmed by ROXANNE HAIRSTON MD ([id number]) on 12/29/2017 8:32:46 AM Referred By: Confirmed By:ROXANNE HAIRSTON MD
--- NOTE | 2017-12-29 08:34 | EKG ---
Test Reason : Blood Pressure : / mmHG Vent. Rate : 142 BPM Atrial Rate : 094 BPM P-R Int : 000 ms QRS Dur : 082 ms QT Int : 286 ms P-R-T Axes : 000 -25 059 degrees QTc Int : 439 ms ATRIAL FIBRILLATION abnormal ekg vpc's Confirmed by YOVANNY SOLOMON, ROXANNE ([id number]) on 12/29/2017 8:34:22 AM Referred By: Confirmed By:ROXANNE HAIRSTON MD
[2017-12-29] MEDS ORDERED: ASPIRIN 81 MG CHEWABLE TABLETS PO SCH (10:00)
[2017-12-29] MEDS ORDERED: PRENATAL VITAMINS W/ FOLIC ACID TABLET (FP) PO SCH (10:00)
[2017-12-29] MEDS ORDERED: chlordiazePOXIDE HCL 25 MG CAPSULE PO SCH (17:00)
[2017-12-30] MEDS ORDERED: chlordiazePOXIDE 5 MG CAPSULE PO SCH (17:00)
[2017-12-31] MEDS ORDERED: chlordiazePOXIDE HCL 10 MG CAPSULE PO SCH (17:00)
== END 2017-12-29 04:01 | disposition short-term general hospital (02) | DRG 897 ==
LOC: YASAS 10:59 → Y3N 15:55
PROVIDERS: ADMIT Internal Medicine; ATTEND Internal Medicine
PROC: HZ2ZZZZ Detoxification Services for Substance Abuse Treatment (ICD-10-PCS; principal; 2017-12-28)
DX: F10.230 Alcohol dependence with withdrawal, uncomplicated (principal); F17.210 Nicotine dependence, cigarettes, uncomplicated; F31.9 Bipolar disorder, unspecified; G47.00 Insomnia, unspecified; Z87.09 Personal history of other diseases of the respiratory system; Z96.651 Presence of right artificial knee joint; I48.91 Unspecified atrial fibrillation; Z59.0 Homelessness
CPT/HCPCS: 93005; 93010

== ENCOUNTER 2017-12-28 21:28 | Inpatient (IN) | payer OTHER ==
[2017-12-28] MEDS ORDERED: dilTIAZem HCL 125 MG/25 ML - 25 ML VIAL ONE ×2 (21:31→22:09)
[2017-12-28 21:40] VITALS: BMI 29.0
--- NOTE | 2017-12-28 21:57 | PDOC ---
History of Present Illness - General Chief Complaint: Chest Pain Stated Complaint: CHEST PAIN Time Seen by Provider: 12/28/17 21:42 - History of Present Illness Initial Comments: 12/28/17 21:57 Mr. Morataya is a 67 yo male w/ pmh of "maybe afib in the past" and alcohol abuse who presents c/o a 1 day history of midline chest pain. He reports that he suddenly started having chest pain and palpitations today while at [facility] where he is currently being treated for detox. Mr. Morataya reports he has recently come off of a week long episode of drinking "pint after pint after pint " of hard liquor and a large amount of cocaine. His last drink was this morning and he had 1 librium at [facility] today. He was noted to have afib with RVR which converted after 25mg of cardizem administered via EMS. The patient denies chest pain, shortness of breath, headache and dizziness. Denies fever, chills, nausea, vomit, diarrhea and constipation. Denies dysuria, frequency, urgency and hematuria. Allergies: Timing/Duration: 1/2 hour Past History - Past Medical History Allergies/Adverse Reactions: Allergies Allergy/AdvReac Type Severity Reaction Status Date / Time Penicillins Allergy Severe Swelling Verified 12/28/17 21:40 Home Medications: Ambulatory Orders Albuterol Sulfate Inhaler - [Ventolin HFA Inhaler -] 2 inh PO Q4H PRN #1 inh Bupropion HCl [Wellbutrin -] 100 mg PO DAILY@0600 #30 tablet 10/21/17 Anemia: No Asthma: Yes (Not on meds) Cancer: No Cardiac Disorders: No CVA: No COPD: No CHF: No Dementia: No Diabetes: No GI Disorders: No Disorders: No HTN: No Hypercholesterolemia: No Kidney Stones: No Liver Disease: No Seizures: No Thyroid Disease: No - Surgical History Abdominal Surgery: No Appendectomy: No Cardiac Surgery: No Cholecystectomy: No Lung Surgery: No Neurologic Surgery: No Orthopedic Surgery: Yes (Right knee replacement in 12/17) - Reproductive History Testicular Surgery: No - Suicide/Smoking/Psychosocial Hx Smoking History: Current every day smoker Have you smoked in the past 12 months: Yes Number of Cigarettes Smoked Daily: 8 Cigars Per Day: 0 Information on smoking cessation initiated: No 'Breaking Loose' booklet given: 12/28/17 Hx Alcohol Use: Yes Drug/Substance Use Hx: Yes Substance Use Type: Alcohol (bourbon, whiskey a pint a day) Hx Substance Use Treatment: Yes (cocaine - sometimes) Review of Systems - Review of Systems Comments:: 12/28/17 21:58 GENERAL/CONSTITUTIONAL: No fever or chills. No weakness. HEAD, EYES, EARS, NOSE AND THROAT: No change in vision. No ear pain or discharge. No sore throat. CARDIOVASCULAR: No chest pain or shortness of breath RESPIRATORY: No cough, wheezing, or hemoptysis. GASTROINTESTINAL: No nausea, vomiting, diarrhea or constipation. GENITOURINARY: No dysuria, frequency, or change in urination. MUSCULOSKELETAL: No joint or muscle swelling or pain. No neck or back pain. SKIN: No rash NEUROLOGIC: No headache, vertigo, loss of consciousness, or change in strength/ sensation. ENDOCRINE: No increased thirst. No abnormal weight change HEMATOLOGIC/LYMPHATIC: No anemia, easy bleeding, or history of blood clots. ALLERGIC/IMMUNOLOGIC: No hives or skin allergy. *Physical Exam - Vital Signs Last Vital Signs Temp Pulse Resp BP Pulse Ox 97.8 F 142 H 20 118/70 97 12/28/17 21:37 12/28/17 21:37 12/28/17 21:37 12/28/17 21:37 12/28/17 21:37 - Physical Exam Comments: 12/28/17 21:59 GENERAL: Awake, alert, and fully oriented, in no acute distress HEAD: No signs of trauma, normocephalic, atraumatic EYES: PERRLA, EOMI, sclera anicteric, conjunctiva clear ENT: Auricles normal inspection, hearing grossly normal, nares patent, oropharynx clear without exudates. Moist mucosa NECK: Normal ROM, supple, no lymphadenopathy, JVD, or masses LUNGS: No distress, speaks full sentences, clear to auscultation bilaterally HEART: Regular rate and rhythm, normal S1 and S2, no murmurs, rubs or gallops, peripheral pulses normal and equal bilaterally. ABDOMEN: Soft, nontender, normoactive bowel sounds. No guarding, no rebound. No masses EXTREMITIES: Normal inspection, Normal range of motion, no edema. No clubbing or cyanosis. NEUROLOGICAL: Cranial nerves II through XII grossly intact. Normal speech, normal gait, no focal sensorimotor deficits SKIN: Warm, Dry, normal turgor, no rashes or lesions noted. Heart Score/ECG Review - History History: Highly suspicious - Electrocardiogram EKG: Non specific repolarization disturbance - Age Age: >/= 65 - Risk Factors Based on the list above the patient has:: No risk factors known - Troponin Troponin: </= normal limit - Score Heart Score - Total: 5 ED Treatment Course - LABORATORY CBC & Chemistry Diagram: 12/28/17 22:00 12/28/17 22:00 Medical Decision Making - Medical Decision Making 12/28/17 23:06 Mr. Morataya is a 67 yo male w/ pmh as described who presents for evaluation of chest pain. Chest pain workup started with EKG/CBC/CMP/Cardiac labs/CXR. Patient noted to be initially in afib upon EMS presentation; converted to sinus rhythm after 25 cardizem while in route. Upon arrival to ER patient noted to have reverted to afib / tachycardia again. 2L IV NS and 20 further IV cardizem given. Patient rate controlled again following intervention. 12/28/17 23:13 Patient given 60mg PO cardizem for further rate control. Troponins negative at this time. 12/28/17 23:21 Patient CHADS-VASc score 1 for age only. Given negative troponins and no prior history, decision made to AC with aspirin only at this time and await cardiac consultation. 12/28/17 23:38 Patient HEART score 5. Patient admitted to [facility] for further evaluation. *DC/Admit/Observation/Transfer Diagnosis at time of Disposition: Cocaine abuse, Alcohol abuse Afib Qualifiers: Atrial fibrillation type: unspecified Qualified Code(s): I48.91 - Unspecified atrial fibrillation - Discharge Dispostion Condition at time of disposition: Fair Admit: Yes - Referrals Referrals: ON STAFF,NOT [Non Staff, Medical] - - Patient Instructions - Post Discharge Activity
[2017-12-28] MEDS ORDERED: SODIUM CHLORIDE 2,000 ML IV STA (22:02)
[2017-12-28] MEDS ORDERED: dilTIAZem HCL 50 MG/10 ML - 10 ML VIAL IVPUSH ONE ×2 (22:03→23:48)
[2017-12-28 22:13] LABS: BASO % 0.6 % (0-2.0); HEMATOCRIT 41.6 % (35.4-49); HEMOGLOBIN 14.3 GM/dL (11.7-16.9); LYMPH % 38.5 % (8-40); MCH 30.6 pg (25.7-33.7); MCHC 34.4 g/dl (32.0-35.9); MEAN PLT VOLUME 8.9 fl (7.5-11.1); MONO % 8.5 % (3.8-10.2); NEUT % 50.4 % (42.8-82.8); PLATELET COUNT 182 K/MM3 (134-434); RBC 4.68 M/mm3 (4.00-5.60); RDW 14.1 % (11.9-15.9); WHITE BLOOD COUNT 7.6 K/mm3 (4.0-10.0)
[2017-12-28 22:39] LABS: ALBUMIN 3.7 g/dl (3.4-5.0); ANION GAP 11 (8-16); BILIRUBIN,TOTAL 0.2 mg/dL (0.2-1.0); BLOOD UREA NITROGEN 15 mg/dL (7-18); CALCIUM 8.2 mg/dL (8.5-10.1); CHLORIDE 109 mmol/L (98-107); CO2 23 mmol/L (21-32); CREATININE 0.9 mg/dL (0.7-1.3); GLUCOSE,RANDOM 113 mg/dL (74-106); POTASSIUM 3.8 mmol/L (3.5-5.1); SGOT/AST 29 U/L (15-37); SGPT/ALT 31 U/L (12-78); SODIUM 143 mmol/L (136-145); TOT PROT 6.9 g/dl (6.4-8.2)
[2017-12-28 22:42] LABS: ALK PHOS 63 U/L (45-117)
[2017-12-28] MEDS ORDERED: dilTIAZem HCL 60 MG TABLET (FP) PO ONE (23:10)
--- NOTE | 2017-12-28 23:11 | PDOC ---
Attending Attestation - HPI HPI: 12/28/17 23:11 The patient is a 67 year old male with a significant past medical history of alcohol abuse and cocaine abuse who presents to the ED, from [facility], with complaints of chest pain since earlier today. The patient reports a sudden onset of palpitations, midline chest pain and shortness of breath while laying in bed around 6pm earlier today. He is currently on detox for alcohol and cocaine abuse and states he recently came off of a week long episode of drinking large amounts of hard liquor and smoking large amounts of cocaine. He states his last drink was this morning. Patient has a hx of Afib in the past with RVR. Denies nausea, vomiting, or diarrhea. Denies fever or chills. Denies dysuria or change in urinary output. Denies any other symptoms. Documentation prepared by Jannet Alonso, acting as expert medical writer for Kamari Lunsford MD - Physicial Exam PE: 12/28/17 23:12 Vitals: Triage Vital signs reviewed General Appearance: no acute distress, well nourished well developed, Head: Atraumatic, normocephalic Neck: Supple;No Nuchal rigidity Chest Wall: Nontender Cardiac: +rate irregularly irregular, no murmurs, no rubs, no gallops, Lungs: Clear to auscultation bilateral, good air movement bilaterally, Abdomen: Soft, nondistended, normal bowel sounds, nontender to palpation Rectal: Exam deferred Extremities: Full range of motion to all extremities, no cyanosis, clubbing, or edema Skin: Warm and dry, no rashes or lesions, no petechiae Neuro: AOX3; Cranial Nerves 2-12 grossly c intact, Strength intact to all extremities, Sensation intact to all extremities, gait normal Psych: normal mood, normal affect <Jannet Alonso - Last Filed: 12/28/17 23:11> - Resident Resident Name: Kosta Wei - ED Attending Attestation I have performed the following: I have examined & evaluated the patient, The case was reviewed & discussed with the resident, I agree w/resident's findings & plan, Exceptions are as noted - Critical Care Time Total Critical Care Time: 35 Critical Care Statement: The care of this patient involved high complexity decision making to prevent further life threatening deterioration of the patient 's condition and/or to evaluate & treat vital organ system(s) failure or risk of failure. - Medical Decision Making 12/28/17 23:28 The patient is a 67 year old male with a significant past medical history of alcohol abuse and cocaine abuse who presents to the ED, from [facility], with complaints of chest pain since earlier today. Rapid afib with RVR Given IV diltiazem by EMS, initially rate controlled, up arrival to ED again in Afib with RVR Additional 20 mg Diltiazem ordered. Reevaluation 11pm pt. now rate controlled. PO cardizem ordered Reevaluation Jairo Vasc score 1. 325 asa given Heart score 4. Trop Neg Will admit to medicine for further management. <Kmaari Lunsford - Last Filed: 12/28/17 23:32> Heart Score/ECG Review - ECG Impressions Comment:: 12/28/17 23:31 Afib with RVR, no ST elevations, no TWI Interpreted by me <Kamari Lunsford - Last Filed: 12/28/17 23:32>
[2017-12-28] MEDS ORDERED: dilTIAZem HCL 60 MG TABLET (FP) ONE (23:12)
[2017-12-28] MEDS ORDERED: ASPIRIN 325 MG TABLET PO ONE (23:21)
[2017-12-29] MEDS ORDERED: ASPIRIN 81 MG CHEWABLE TABLETS ONE (00:06)
[2017-12-29] MEDS ORDERED: dilTIAZem HCL 125 MG/25 ML - 25 ML VIAL ONE (00:07)
[2017-12-29] MEDS ORDERED: SODIUM CHLORIDE 1,000 ML IV SCH (00:45)
[2017-12-29] MEDS ORDERED: chlordiazePOXIDE HCL 25 MG CAPSULE PO ONE ×2 (00:50→14:32)
[2017-12-29] MEDS ORDERED: FOLIC ACID INJECTION - 1 MG, THIAMINE HCL 100 MG, MULTIVIT INJECTION ADULT 10 ML in SOD... IVPB ONE (00:50)
--- NOTE | 2017-12-29 00:57 | HP ---
CHIEF COMPLAINT: Chest pain, palpitations PCP: none HISTORY OF PRESENT ILLNESS: 67 year old M with no pmh presented with chest pain/palpitations. Patient has had 1 week history of alcohol intoxication and cocaine abuse (multiple pints of whiskey and beer, and snorting cocaine) due to recent homelessness. Patient went to [facility] for detox today and was doing well until 5 pm when he had acute chest pain with shortness of breath and palpitations. He was found to be in a fib with rvr and was transferred to the ED. Patient given 60 mg po cardizem and 20 mg iv cardizem to control his heart rate. Patient denies any recent fever, chills, dysuria, hematuria, lower extremity edema. Recent Travel: denies PAST MEDICAL HISTORY: denies PAST SURGICAL HISTORY: denies Social History: Smokin-9 cigarettes per day Alcohol: multiple pints and beers Drugs: +cocaine Family History: Allergies Penicillins Allergy (Severe, Verified 12/28/17 21:40) Swelling HOME MEDICATIONS: Home Medications Medication Instructions Recorded Albuterol Sulfate Inhaler - 2 inh PO Q4H PRN #1 inh 05/01/17 [Ventolin HFA Inhaler -] Bupropion HCl [Wellbutrin -] 100 mg PO DAILY@0600 #30 tablet 10/21/17 REVIEW OF SYSTEMS CONSTITUTIONAL: Absent: fever, chills, diaphoresis, generalized weakness, malaise, loss of appetite, weight change HEENT: Absent: rhinorrhea, nasal congestion, throat pain, throat swelling, difficulty swallowing, mouth swelling, ear pain, eye pain, visual changes CARDIOVASCULAR: Absent: chest pain, syncope, palpitations, irregular heart rate, lightheadedness , peripheral edema RESPIRATORY: Absent: cough, shortness of breath, dyspnea with exertion, orthopnea, wheezing, stridor, hemoptysis GASTROINTESTINAL: Absent: abdominal pain, abdominal distension, nausea, vomiting, diarrhea, constipation, melena, hematochezia GENITOURINARY: Absent: dysuria, frequency, urgency, hesitancy, hematuria, flank pain, genital pain MUSCULOSKELETAL: Absent: myalgia, arthralgia, joint swelling, back pain, neck pain SKIN: Absent: rash, itching, pallor HEMATOLOGIC/IMMUNOLOGIC: Absent: easy bleeding, easy bruising, lymphadenopathy, frequent infections ENDOCRINE: Absent: unexplained weight gain, unexplained weight loss, heat intolerance, cold intolerance NEUROLOGIC: Absent: headache, focal weakness or paresthesias, dizziness, unsteady gait, seizure, mental status changes, bladder or bowel incontinence PSYCHIATRIC: Absent: anxiety, depression, suicidal or homicidal ideation, hallucinations. PHYSICAL EXAMINATION Vital Signs - 24 hr 12/28/17 12/28/17 12/29/17 21:37 22:58 00:12 Temperature 97.8 F 98.5 F Pulse Rate 142 H Pulse Rate [ 82 69 Apical] Respiratory 20 12 Rate Blood Pressure 118/70 Blood Pressure 115/66 [Left Arm] O2 Sat by Pulse 97 93 L Oximetry (%) GENERAL: Awake, alert, and fully oriented, in no acute distress. +Mild tremors HEAD: Normal with no signs of trauma. EYES: Extraocular movements intact, sclera anicteric, conjunctiva clear. No lid lag. EARS, NOSE, THROAT: Ears normal, nares patent, oropharynx clear without exudates. Moist mucous membranes. NECK: Normal range of motion, supple without lymphadenopathy, JVD, or masses. LUNGS: Breath sounds equal, clear to auscultation bilaterally. No wheezes, and no crackles. No accessory muscle use. HEART: Irregularly irregular, normal S1 and S2 without murmur, rub or gallop. ABDOMEN: Soft, nontender, not distended, normoactive bowel sounds, no guarding, no rebound, no masses. No hepatomegaly or splenomegaly. MUSCULOSKELETAL: Normal range of motion at all joints. No bony deformities or tenderness. No CVA tenderness. UPPER EXTREMITIES: 2+ pulses, warm, well-perfused. No cyanosis. No clubbing. No peripheral edema. LOWER EXTREMITIES: 2+ pulses, warm, well-perfused. No calf tenderness. No peripheral edema. NEUROLOGICAL: Cranial nerves II-XII intact. Normal speech. Normal gait. PSYCHIATRIC: Cooperative. Good eye contact. Appropriate mood and affect. SKIN: Warm, dry, normal turgor, no rashes or lesions noted, normal capillary refill. Laboratory Results - last 24 hr 12/28/17 12/28/17 22:00 22:00 WBC 7.6 RBC 4.68 Hgb 14.3 Hct 41.6 MCV 89.0 MCH 30.6 MCHC 34.4 RDW 14.1 Plt Count 182 D MPV 8.9 Neutrophils % 50.4 D Lymphocytes % 38.5 D Monocytes % 8.5 Eosinophils % 2.0 Basophils % 0.6 Sodium 143 Potassium 3.8 Chloride 109 H Carbon Dioxide 23 Anion Gap 11 BUN 15 D Creatinine 0.9 Creat Clearance w eGFR > 60 Random Glucose 113 H D Calcium 8.2 L Total Bilirubin 0.2 D AST 29 D ALT 31 Alkaline Phosphatase 63 Creatine Kinase 359 H Creatine Kinase Index 1.0 CK-MB (CK-2) 3.599 Troponin I < 0.02 Total Protein 6.9 Albumin 3.7 ASSESSMENT/PLAN: 67 year old M with no pmh presented with new onset atrial fibrillation #Atrial fibrillation, new onset. [facility] 1 -Echo -will check mg/phos -tsh -ua -utox -trend troponins -cardio consult -telemetry -a1c -lipid panel -cardizem 30 q6 -ivf @ 75 cc/hr #Alcohol detox -librium protocol -banana bag #fen/gi -ivf @ 75 cc/hr -wnl -na controlled diet #ppx -scds Visit type - Emergency Visit Emergency Visit: Yes Care time: The patient presented to the Emergency Department on the above date and was hospitalized for further evaluation of their emergent condition. - New Patient This patient is new to me today: Yes Date on this admission: 12/29/17 - Critical Care Critical Care patient: No Hospitalist Screening - Colonoscopy Questionnaire Colonoscopy Questionnaire: Colonoscopy Questionnaire - Patient: 50 - 75 years old and never had a screening colonoscopy: Unknown History of colon or rectal polyps, or CA: Unknown History of IBD, Crohn's disease or UC: Unknown History of abdominal radiation therapy as a child: Unknown - Relative: 1 with colon or rectal CA, or polyps at age 60 or younger: Unknown Colon or rectal CA diagnosed at age 45 or younger: Unknown Multiple relatives with colon or rectal CA: Unknown - Outcome: Screening Result: Negative Screen
[2017-12-29 01:02] LABS: URINE APPEARANCE CLEAR; URINE BILIRUBIN NEGATIVE (<2.0 mg/dL); URINE COLOR YELLOW; URINE GLUCOSE (UA) NEGATIVE (NEGATIVE); URINE KETONE NEGATIVE (NEGATIVE); URINE LEUK ESTERASE NEGATIVE (NEGATIVE); URINE NITRITE NEGATIVE (NEGATIVE); URINE PROTEIN NEGATIVE (NEGATIVE); URINE UROBILINOGEN NEGATIVE mg/dL (0.2-1.0)
[2017-12-29 01:06] LABS: URINE BACTERIA RARE /hpf (NONE SEEN); URINE MUCUS FEW
[2017-12-29 01:13] LABS: COCAINE, UR POSITIVE ng/ml (CUTOFF=300); METHADONE, UR NEGATIVE ng/ml (CUTOFF=300); OPIATES, URI NEGATIVE ng/ml (CUTOFF=300); PHENCYCLIDINE,URINE NEGATIVE ng/ml (CUTOFF=25); URINE AMPHETAMINES NEGATIVE ng/ml (CUTOFF=500); URINE BARBITURATES NEGATIVE ng/ml (CUTOFF=200); URINE BENZODIAZEPINES NEGATIVE ng/ml (CUTOFF=200)
--- NOTE | 2017-12-29 01:21 | PN ---
Teaching Attending Note Name of Resident: Juan Ramon Polk ATTENDING PHYSICIAN STATEMENT I saw and evaluated the patient. Chart, data, imaging reviewed. I reviewed the resident's note and discussed the case with the resident. I agree with the resident's findings and plan as documented. SUBJECTIVE: 67 year old man presented with chest pain and palpitations which started on . He had 1 week history of alcohol binge drinking and cocaine abuse (multiple pints of whiskey and beer, and snorting cocaine) after he became homeless. Patient went to [facility] for detox 12/28 and complained of chest pain and palpitations. He was found to be in a fib with rvr and was transferred to the ED. Received PO and IV diltiazem and rate was better controlled. Last drink was 12/27. No history of etoh withdrawal in the past. OBJECTIVE: Last Vital Signs Temp Pulse Resp BP Pulse Ox 98.5 F 69 12 115/66 93 L 12/29/17 00:12 12/29/17 00:12 12/29/17 00:12 12/29/17 00:12 12/29/17 00:12 General-disheveled Heent - atraumatic, perrla, no scleral pallor neck -supple CV -s1+s+, irregularly irregular chest - cta abdomen -soft, nt skin- no rashes appreciated Abnormal Lab Results 12/28/17 12/29/17 22:00 00:23 Chloride 109 H Random Glucose 113 H D Calcium 8.2 L Creatine Kinase 359 H Urine Blood 1+ H EKG -afib with RVR CXR- sharp cosophrenic angles ASSESSMENT AND PLAN: #67 yo man with new onset of afib with rvr, etoh abuse, cocaine abuse. CHADSVASC score is 1. #Afib with RVR -rate now controlled after diltiazem -admit to telemtry -avoid bblockers for now due to cocaine abuse -cardizem 30mg PO q6hrs -transthoracic ehco -TSH -cardiology evaluation -telemetry monitoring -ASA -CHADSVASC score is 1 #R/o ACS low suspicion- first troponin was negative -trend troponin -tele monitoring -statin #EToh abuse- no history of etoh withdrawal in the past -librium protocol -banana bag -check Mg, phos level, supplement prn -send urine toxicology -CIWA score -heparin sc for dvt ppx
[2017-12-29] MEDS: chlordiazePOXIDE HCL 25 MG CAPSULE PO SCH ×4 (05:29→22:25)
[2017-12-29] MEDS ORDERED: dilTIAZem HCL 30 MG TABLET (FP) PO SCH (06:00)
[2017-12-29 08:00] LABS: BASO % 0.5 % (0-2.0); EOS % 2.7 % (0-4.5); HEMATOCRIT 40.4 % (35.4-49); HEMOGLOBIN 13.7 GM/dL (11.7-16.9); LYMPH % 28.3 % (8-40); MCH 30.4 pg (25.7-33.7); MEAN CELL VOLUME 89.3 fl (80-96); MEAN PLT VOLUME 9.3 fl (7.5-11.1); MONO % 8.9 % (3.8-10.2); NEUT % 59.6 % (42.8-82.8); PLATELET COUNT 156 K/MM3 (134-434); RBC 4.52 M/mm3 (4.00-5.60); RDW 13.9 % (11.9-15.9); WHITE BLOOD COUNT 7.9 K/mm3 (4.0-10.0)
[2017-12-29 08:36] LABS: CHOLESTEROL 191 mg/dL (50-200); MAGNESIUM 1.8 mg/dL (1.8-2.4); PHOSPHOROUS 3.2 mg/dL (2.5-4.9); TRIGLYCERIDES 179 mg/dL (35-160)
[2017-12-29 08:38] LABS: HDL CHOLESTEROL 50 mg/dL (40-60)
--- NOTE | 2017-12-29 09:19 | PN ---
Progress Note (short form) - Note Progress Note: Subjective: no fever ro chills, has no BAd pain or CP , has nO SOB. last use of cocaine was 3 days ao. Objective: Vital Signs: Last Vital Signs Temp Pulse Resp BP Pulse Ox 98.4 F 76 18 124/77 99 12/29/17 08:40 12/29/17 08:40 12/29/17 08:40 12/29/17 08:40 12/29/17 08:40 Laboratory Results - last 24 hr 12/28/17 12/28/17 12/29/17 22:00 22:00 00:23 WBC 7.6 RBC 4.68 Hgb 14.3 Hct 41.6 MCV 89.0 MCH 30.6 MCHC 34.4 RDW 14.1 Plt Count 182 D MPV 8.9 Neutrophils % 50.4 D Lymphocytes % 38.5 D Monocytes % 8.5 Eosinophils % 2.0 Basophils % 0.6 Sodium 143 Potassium 3.8 Chloride 109 H Carbon Dioxide 23 Anion Gap 11 BUN 15 D Creatinine 0.9 Creat Clearance w eGFR > 60 Random Glucose 113 H D Hemoglobin A1c % Calcium 8.2 L Phosphorus Magnesium Total Bilirubin 0.2 D AST 29 D ALT 31 Alkaline Phosphatase 63 Creatine Kinase 359 H Creatine Kinase Index 1.0 CK-MB (CK-2) 3.599 Troponin I < 0.02 Total Protein 6.9 Albumin 3.7 Triglycerides Cholesterol Total LDL Cholesterol HDL Cholesterol TSH Urine Color Yellow Urine Appearance Clear Urine pH 5.0 Ur Specific [place] 1.017 Urine Protein Negative Urine Glucose (UA) Negative Urine Ketones Negative Urine Blood 1+ H Urine Nitrite Negative Urine Bilirubin Negative Urine Urobilinogen Negative Ur Leukocyte Esterase Negative Urine WBC (Auto) 3 Urine RBC (Auto) 1 Urine Bacteria Rare Urine Mucus Few Opiates Screen Methadone Screen Barbiturate Screen Phencyclidine Screen Ur Amphetamines Screen MDMA (Ecstasy) Screen Benzodiazepines Screen Cocaine Screen U Marijuana (THC) Screen 12/29/17 12/29/17 12/29/17 00:23 06:00 06:00 WBC 7.9 RBC 4.52 Hgb 13.7 Hct 40.4 MCV 89.3 MCH 30.4 MCHC 34.0 RDW 13.9 Plt Count 156 MPV 9.3 Neutrophils % 59.6 Lymphocytes % 28.3 D Monocytes % 8.9 Eosinophils % 2.7 Basophils % 0.5 Sodium Potassium Chloride Carbon Dioxide Anion Gap BUN Creatinine Creat Clearance w eGFR Random Glucose Hemoglobin A1c % Calcium Phosphorus 3.2 Magnesium 1.8 Total Bilirubin AST ALT Alkaline Phosphatase Creatine Kinase 262 Creatine Kinase Index 0.9 CK-MB (CK-2) 2.443 Troponin I < 0.02 Total Protein Albumin Triglycerides 179 H Cholesterol 191 Total LDL Cholesterol 134 H HDL Cholesterol 50 TSH Urine Color Urine Appearance Urine pH Ur Specific [place] Urine Protein Urine Glucose (UA) Urine Ketones Urine Blood Urine Nitrite Urine Bilirubin Urine Urobilinogen Ur Leukocyte Esterase Urine WBC (Auto) Urine RBC (Auto) Urine Bacteria Urine Mucus Opiates Screen Negative Methadone Screen Negative Barbiturate Screen Negative Phencyclidine Screen Negative Ur Amphetamines Screen Negative MDMA (Ecstasy) Screen Negative Benzodiazepines Screen Negative Cocaine Screen Positive U Marijuana (THC) Screen Negative 12/29/17 12/29/17 06:00 06:00 WBC RBC Hgb Hct MCV MCH MCHC RDW Plt Count MPV Neutrophils % Lymphocytes % Monocytes % Eosinophils % Basophils % Sodium Potassium Chloride Carbon Dioxide Anion Gap BUN Creatinine Creat Clearance w eGFR Random Glucose Hemoglobin A1c % 6.2 H Calcium Phosphorus Magnesium Total Bilirubin AST ALT Alkaline Phosphatase Creatine Kinase Creatine Kinase Index CK-MB (CK-2) Troponin I Total Protein Albumin Triglycerides Cholesterol Total LDL Cholesterol HDL Cholesterol TSH Cancelled Urine Color Urine Appearance Urine pH Ur Specific [place] Urine Protein Urine Glucose (UA) Urine Ketones Urine Blood Urine Nitrite Urine Bilirubin Urine Urobilinogen Ur Leukocyte Esterase Urine WBC (Auto) Urine RBC (Auto) Urine Bacteria Urine Mucus Opiates Screen Methadone Screen Barbiturate Screen Phencyclidine Screen Ur Amphetamines Screen MDMA (Ecstasy) Screen Benzodiazepines Screen Cocaine Screen U Marijuana (THC) Screen Physical Exam: NAD , HEENT: MMM, no JVD , no facial droop CV: irreg irreg , rate 100-110 Lungs: CTAB Abd; soft, NT, ND , NL BS Ext: no edema , no erythema , no tremor Imaging: cxray reviewed. Assessment/Plan: 67 y/o man with h/o ALcohol abuse and cocaine abuse who presented from [facility] due to palpitations and CP , he was found to have A fib with RVR 1- A fib with RVR . he reports being told he might have had A fib 2 yrs ago. all EKGs in our system reviewed and showed Sinus rhythm. So not sure if this a new onset or PAF. alcohol and cocaine triggered this episode . TSH is pending - echo to r/o structural abn - TSH pending - BP is stable but HR is still tachy on cardizem 30 q 6h. switch to cardizem cd 240 daily - CHADSVSC score 1 ( age) . his risk of 0.6 % /yr was d/w him. AC options of ASA vs full AC were d/w him. riskl of bleeding with full AC given his alcohol abuse was also discussed. patient chose not to go on full AC, and opted to use ASpirin alone knowing that effect is kadi than full AC. - will start Aspirin 81 daily - cont tele - counseled about alcohol /cocaine use - no signs of heart failure 2- ETOH abuse: - cont detox with lilbrium - no signs of Wernicke's - thiamine, folate and MVT 3- Cocaine use . no signs of ischemia on EkgS. - EDUCATED 4- Hyper lipidemia : LDL 131 . Echo risk score puts him at 12.5 % risk of CAd in 10 yrs. -start lipitor 5- HLOC Visit type - Emergency Visit Emergency Visit: Yes ED Registration Date: 12/28/17 Care time: The patient presented to the Emergency Department on the above date and was hospitalized for further evaluation of their emergent condition. - New Patient This patient is new to me today: Yes Date on this admission: 12/29/17 - Critical Care Critical Care patient: No
[2017-12-29] MEDS: ASPIRIN 81 MG CHEWABLE TABLETS PO SCH (09:59)
[2017-12-29] MEDS ORDERED: DILTIAZEM INJECTION 125 MG in SODIUM CHLORIDE 100 ML IVPB SCH (10:00)
[2017-12-29] MEDS: MULTIVITAMINS (DAILY MVI) TABLET (FP) PO SCH (10:51)
[2017-12-29] MEDS: FOLIC ACID 1 MG TABLET (FP) PO SCH (10:52)
[2017-12-29] MEDS: THIAMINE HCL 100 MG TABLET (FP) PO SCH (10:52)
--- NOTE | 2017-12-29 11:11 | CON.CARD ---
Consult Consult Specialty:: Cardiology Referred by:: Kortney Gonzalez Reason for Consultation:: Afib - History of Present Illness Chief Complaint: SOB, palpitations History of Present Illness: 67 year old male with no pmhx (on no meds) who presents with sob/chest pain and palpitations. Patient is on a 1 week alcohol and crack/cocaine binge. Went to detox and there developed sudden sob/mild nonradiating central chest pain/ palpitations. In ER, noted to be tachy in afib with rvr and started on diltiazem. Now his chest symptoms have resolved but feels withdrawal. EKG: afib with VR 142, nonspecific T wave abnormalities - History Source History Provided By: Patient, Medical Record - Past Medical History Cardio/Vascular: Yes: AFIB - Alcohol/Substance Use Hx Alcohol Use: Yes - Smoking History Smoking history: Current every day smoker Have you smoked in the past 12 months: Yes Aproximately how many cigarettes per day: 8 Home Medications - Allergies Allergies/Adverse Reactions: Allergies Allergy/AdvReac Type Severity Reaction Status Date / Time Penicillins Allergy Severe Swelling Verified 12/28/17 21:40 - Home Medications Home Medications: Ambulatory Orders Albuterol Sulfate Inhaler - [Ventolin HFA Inhaler -] 2 inh PO Q4H PRN #1 inh Bupropion HCl [Wellbutrin -] 100 mg PO DAILY@0600 #30 tablet 10/21/17 Family Disease History - Family Disease History Family Disease History: Heart Disease: Grandparent (grandfather etoh, ), Father (, COPD), Mother (, RA), CA: Grandparent, Respiratory: Father, Other: Grandparent, Mother, Sister (alive, healthy, etoh), Daughter (one,living , healthy) Vital Signs: Vital Signs Temperature 98.4 F 12/29/17 08:40 Pulse Rate 76 12/29/17 08:40 Respiratory Rate 18 12/29/17 08:40 Blood Pressure 124/77 12/29/17 08:40 O2 Sat by Pulse Oximetry (%) 99 12/29/17 08:40 Constitutional: Yes: No Distress Neck: Yes: WNL Respiratory: Yes: CTA Bilaterally Gastrointestinal: Yes: Normal Bowel Sounds, Soft Cardiovascular: Yes: Pulse Irregular JVD: No Carotid Bruit: No PMI: Non-Displaced Heart Sounds: Yes: S1, S2 Murmur: No: Systolic Murmur Edema: No - Other Data Labs, Other Data: CBC, BMP 12/29/17 06:00 12/28/17 22:00 Troponin, BNP 12/28/17 12/29/17 22:00 06:00 Troponin I < 0.02 < 0.02 Troponin, BNP 12/28/17 12/29/17 22:00 06:00 Troponin I < 0.02 < 0.02 Imaging - Results Chest X-ray: Report Reviewed EKG: Image Reviewed Assessment/Plan 67 year old male with no pmhx (on no meds) who presents with sob/chest pain and palpitations. Patient is on a 1 week alcohol and crack/cocaine binge. Went to detox and there developed sudden sob/mild nonradiating central chest pain/ palpitations. In ER, noted to be tachy in afib with rvr and started on diltiazem. Now his chest symptoms have resolved but feels withdrawal. EKG: afib with VR 142, nonspecific T wave abnormalities 1) Afib in setting of etoh and crack cocaine binge Started on diltiazem 240mg daily this morning. Would monitor on tele and uptitrate as needed. Plan for echocardiogram Monitor lytes and keep K and Mg in normal range Started on aspirin -TFTs -Need to treat and control withdrawal or will cause tachycardia. Will follow patient
[2017-12-29] MEDS: chlordiazePOXIDE HCL 25 MG CAPSULE PO PRN (11:22)
--- NOTE | 2017-12-29 15:32 | EKG ---
Test Reason : Blood Pressure : / mmHG Vent. Rate : 086 BPM Atrial Rate : 220 BPM P-R Int : 000 ms QRS Dur : 084 ms QT Int : 350 ms P-R-T Axes : 000 -15 029 degrees QTc Int : 418 ms ATRIAL FIBRILLATION ABNORMAL ECG WHEN COMPARED WITH ECG OF 28-DEC-2017 20:36, VENT. RATE HAS DECREASED BY 56 BPM Confirmed by ROXANNE HAIRSTON MD ([id number]) on 12/29/2017 3:31:40 PM Referred By: Confirmed By:ROXANNE HAIRSTON MD
[2017-12-29] MEDS: ATORVASTATIN CA 10 MG TABLET (FP) PO SCH (22:27)
[2017-12-30] MEDS ORDERED: diphenhydrAMINE HCL 25 MG CAPSULE (FP) PO ONE ×2 (00:04→22:10)
[2017-12-30] MEDS: chlordiazePOXIDE HCL 25 MG CAPSULE PO SCH ×4 (05:35→22:18)
[2017-12-30] MEDS: FOLIC ACID 1 MG TABLET (FP) PO SCH (09:59)
[2017-12-30] MEDS: THIAMINE HCL 100 MG TABLET (FP) PO SCH (09:59)
[2017-12-30] MEDS: MULTIVITAMINS (DAILY MVI) TABLET (FP) PO SCH (09:59)
[2017-12-30] MEDS: ASPIRIN 81 MG CHEWABLE TABLETS PO SCH (09:59)
--- NOTE | 2017-12-30 12:35 | PN ---
Teaching Attending Note Name of Resident: Juan Ramon Polk ATTENDING PHYSICIAN STATEMENT I saw and evaluated the patient. I reviewed the resident's note and discussed the case with the resident. I agree with the resident's findings and plan as documented. SUBJECTIVE: No fever or chills. chest tightness and SOB . no cough , has been ambulating in hallway with no problems, no palpitations OBJECTIVE: NAD , HEENT: MMM, minimal JVD on L. CV: irreg irreg , rate in 70s Lungs: minimal crackles at R base Ext: no edema, no erythema , no tremor Assessment/Plan: 67 y/o man with h/o ALcohol abuse and cocaine abuse who presented from [facility] due to palpitations and CP , he was found to have A fib with RVR 1- A fib with RVR. triggered by alcohol and cocaine. - echo pending - cont cardizem CD 240 mg daily - CHADSVSC score 1. pt chose aspirin will cont . - counseled about alcohol /cocaine use again -will give a dose of po lasix x 1 . 2- ETOH abuse: - cont detox with lilbrium - Thiamine, folate and MVT 3- Hyperlipidemia : -cont lipitor dispo : medically stable for transfer to [facility] if accepted
[2017-12-30] MEDS ORDERED: FUROSEMIDE 40 MG TABLET (FP) PO ONE (13:00)
--- NOTE | 2017-12-30 14:41 | PN ---
Progress Note, Physician Chief Complaint: The patient appears lethargic. He complains intermittent palpitation and SOB. He denies chest pain. Tele shows atrial fibrillation with episodes of rapid VR, up to 140's. History of Present Illness: 67 year old male with no PMHx (on no meds) admitted 12/28/2017 with SOB, chest pain and palpitations. Patient was on a one week alcohol and crack/cocaine binge. Went to detox and there developed sudden sob/mild nonradiating central chest pain/palpitations. In ER, noted to be in afib with rvr and started on diltiazem. EKG: afib with VR 142, nonspecific T wave abnormalities - Current Medication List Current Medications: Active Medications Aspirin (Asa -) 81 mg PO DAILY [facility] Last Admin: 12/30/17 09:59 Dose: 81 mg Atorvastatin Calcium (Lipitor -) 10 mg PO HS [facility] Last Admin: 12/29/17 22:27 Dose: 10 mg Chlordiazepoxide HCl (Librium -) 25 mg PO [id number] [facility] Stop: 12/30/17 23:01 Last Admin: 12/30/17 09:59 Dose: 25 mg Chlordiazepoxide HCl (Librium -) 15 mg PO [id number] [facility] Stop: 12/31/17 23:01 Chlordiazepoxide HCl (Librium -) 25 mg PO Q4H PRN PRN Reason: WITHDRAWAL(CONT SUBST) Stop: 01/01/18 00:49 Last Admin: 12/29/17 11:22 Dose: 25 mg Diltiazem HCl (Cardizem Cd -) 240 mg PO DAILY [facility] Last Admin: 12/30/17 09:59 Dose: 240 mg Folic Acid (Folic Acid -) 1 mg PO DAILY [facility] Last Admin: 12/30/17 09:59 Dose: 1 mg Multivitamins/Minerals/Vitamin C (Tab-A-Vit -) 1 tab PO DAILY [facility] Last Admin: 12/30/17 09:59 Dose: 1 tab Thiamine HCl (Vitamin B1 -) 100 mg PO DAILY [facility] Last Admin: 12/30/17 09:59 Dose: 100 mg - Objective Vital Signs: Vital Signs Temperature 98.1 F 12/30/17 09:54 Pulse Rate 81 12/30/17 09:54 Respiratory Rate 18 12/30/17 09:54 Blood Pressure 121/64 12/30/17 09:54 O2 Sat by Pulse Oximetry (%) 97 12/30/17 09:00 General: Well developed. Well nourished. No acute distress. Head: Normocephalic. Atraumatic, Eyes: PERRLA, EOMI. Sclerae anicteric. Conjunctivae clear. Neck: Supple. No JVD. No bruits. Heart: Normal S1, S2: Irregularly regular rhythm and tachycardic. No murmur. No gallop or rub. Lungs: Symmetrical air entry. Clear to auscultation. No crackle. No wheezing or rhonchi. Abdomen: Soft. Bowel sound positive. Non tender. No masses. Extremities: No edema. Venous stasis. No clubbing or cyanosis. PD 2+, equal bilaterally. Neuro: Intact, no focal findings. AAO X3. Labs: CBC, BMP 12/29/17 06:00 12/28/17 22:00 Assessment/Plan 67 year old male with no PMHx (on no meds) admitted 12/28/2017 with SOB, chest pain and palpitations. Patient was on a one week alcohol and crack/cocaine binge. Went to detox and there developed sudden sob/mild nonradiating central chest pain/palpitations. In ER, noted to be in afib with rvr and started on diltiazem. -TSH is within normal range. EKG: afib with VR 142, nonspecific T wave abnormalities - Remains in Afib with rapid ventricular response in setting of ETHO and crack cocaine binge Increase Diltiazem to 360mg daily. Continue environmental monitoring specialist. Add Digoxin 0.25 mg daily. Obtain echocardiogram. Monitor lytes and keep K and Mg in normal range Continue aspirin -Need to treat and control withdrawal or will cause tachycardia. Will follow patient
--- NOTE | 2017-12-30 16:10 | PN ---
Physical Exam: SUBJECTIVE: Patient seen and examined No acute events overnight. Patient feels well this morning. OBJECTIVE: Vital Signs Period Temp Pulse Resp BP Sys/Mackey Pulse Ox Last 24 Hr 97.8 F-98.6 F 74-89 18-24 105-145/61-80 97-97 GENERAL: Awake, alert, and fully oriented, in no acute distress. +Mild tremors HEAD: Normal with no signs of trauma. EYES: Extraocular movements intact, sclera anicteric, conjunctiva clear. No lid lag. EARS, NOSE, THROAT: Ears normal, nares patent, oropharynx clear without exudates. Moist mucous membranes. NECK: Normal range of motion, supple without lymphadenopathy, JVD, or masses. LUNGS: Breath sounds equal, clear to auscultation bilaterally. No wheezes, and no crackles. No accessory muscle use. HEART: Irregularly irregular, normal S1 and S2 without murmur, rub or gallop. ABDOMEN: Soft, nontender, not distended, normoactive bowel sounds, no guarding, no rebound, no masses. No hepatomegaly or splenomegaly. MUSCULOSKELETAL: Normal range of motion at all joints. No bony deformities or tenderness. No CVA tenderness. UPPER EXTREMITIES: 2+ pulses, warm, well-perfused. No cyanosis. No clubbing. No peripheral edema. LOWER EXTREMITIES: 2+ pulses, warm, well-perfused. No calf tenderness. No peripheral edema. NEUROLOGICAL: Cranial nerves II-XII intact. Normal speech. Normal gait. PSYCHIATRIC: Cooperative. Good eye contact. Appropriate mood and affect. SKIN: Warm, dry, normal turgor, no rashes or lesions noted, normal capillary refill. Active Medications Generic Name Dose Route Start Last Admin Trade Name Freq PRN Reason Stop Dose Admin Aspirin 81 mg 12/29/17 10:00 12/30/17 09:59 Asa - PO 81 mg DAILY [facility] Administration Atorvastatin Calcium 10 mg 12/29/17 22:00 12/29/17 22:27 Lipitor - PO 10 mg HS [facility] Administration Chlordiazepoxide HCl 25 mg 12/30/17 05:00 12/30/17 09:59 Librium - PO 12/30/17 23:01 25 mg [id number] [facility] Administration Chlordiazepoxide HCl 15 mg 12/31/17 05:00 Librium - PO 12/31/17 23:01 [id number] [facility] Chlordiazepoxide HCl 25 mg 12/29/17 00:50 12/29/17 11:22 Librium - PO 01/01/18 00:49 25 mg Q4H PRN Administration WITHDRAWAL(CONT SUBST) Digoxin 0.25 mg 12/30/17 15:00 Lanoxin - PO DAILY [facility] Diltiazem HCl 360 mg 12/30/17 15:15 Cardizem Cd - PO DAILY [facility] Folic Acid 1 mg 12/29/17 10:15 12/30/17 09:59 Folic Acid - PO 1 mg DAILY [facility] Administration Multivitamins/Minerals/Vitamin C 1 tab 12/29/17 10:15 12/30/17 09:59 Tab-A-Vit - PO 1 tab DAILY [facility] Administration Thiamine HCl 100 mg 12/29/17 10:15 12/30/17 09:59 Vitamin B1 - PO 100 mg DAILY [facility] Administration ASSESSMENT/PLAN: 67 year old M with no pmh presented with new onset atrial fibrillation #Atrial fibrillation, new onset. Chadsvasc 1 -Echo reviewed -continue asa 81 mg -Cardizem increased to 360 mg CD -Digoxin started per cardiology 0.25 mg -PO lasix x 1 40 mg -Cardiology on board #Alcohol detox -librium protocol -banana bag (thiamine, folate, multivitamin) #HLD -continue lipitor #fen/gi -no ivf -wnl -na controlled diet #ppx -scds Visit type - Emergency Visit Emergency Visit: Yes ED Registration Date: 12/28/17 Care time: The patient presented to the Emergency Department on the above date and was hospitalized for further evaluation of their emergent condition. - New Patient This patient is new to me today: No - Critical Care Critical Care patient: No
[2017-12-30] MEDS: DIGOXIN 0.25 MG TABLET (FP) PO SCH (16:15)
[2017-12-30] MEDS: ATORVASTATIN CA 10 MG TABLET (FP) PO SCH (22:18)
[2017-12-31] MEDS: chlordiazePOXIDE HCL 25 MG CAPSULE PO PRN (02:58)
[2017-12-31] MEDS: chlordiazePOXIDE 5 MG CAPSULE PO SCH ×4 (05:06→22:01)
[2017-12-31] MEDS: DIGOXIN 0.25 MG TABLET (FP) PO SCH (09:28)
[2017-12-31] MEDS: ASPIRIN 81 MG CHEWABLE TABLETS PO SCH (09:29)
[2017-12-31] MEDS: FOLIC ACID 1 MG TABLET (FP) PO SCH (09:29)
[2017-12-31] MEDS: MULTIVITAMINS (DAILY MVI) TABLET (FP) PO SCH (09:29)
[2017-12-31] MEDS: THIAMINE HCL 100 MG TABLET (FP) PO SCH (09:29)
--- NOTE | 2017-12-31 09:53 | PN ---
Progress Note, Physician Chief Complaint: The patient is awake and alert. He complains occasional SOB. He denies palpitation or chest pain. Tele shows atrial fibrillation with controlled VR and episodes of slow VR and short pauses. History of Present Illness: 67 year old male with no PMHx (on no meds) admitted 12/28/2017 with SOB, chest pain and palpitations. Patient was on a one week alcohol and crack/cocaine binge. Went to detox and there developed sudden sob/mild non-radiating central chest pain/palpitations. In ER, noted to be in afib with rvr and started on diltiazem. EKG: afib with VR 142, nonspecific T wave abnormalities. Echo 12/30/2017: Normal LV size, wall motion and systolic function. LVEF = 65%. Normal RV. Borderline for LA dilatation. No significant valvular abnormalities. - Current Medication List Current Medications: Active Medications Aspirin (Asa -) 81 mg PO DAILY [facility] Last Admin: 12/31/17 09:29 Dose: 81 mg Atorvastatin Calcium (Lipitor -) 10 mg PO HS [facility] Last Admin: 12/30/17 22:18 Dose: 10 mg Chlordiazepoxide HCl (Librium -) 15 mg PO [id number] [facility] Stop: 12/31/17 23:01 Last Admin: 12/31/17 05:06 Dose: 15 mg Chlordiazepoxide HCl (Librium -) 25 mg PO Q4H PRN PRN Reason: WITHDRAWAL(CONT SUBST) Stop: 01/01/18 00:49 Last Admin: 12/31/17 02:58 Dose: 25 mg Digoxin (Lanoxin -) 0.25 mg PO DAILY [facility] Last Admin: 12/31/17 09:28 Dose: Not Given Diltiazem HCl (Cardizem Cd -) 360 mg PO DAILY [facility] Last Admin: 12/31/17 09:28 Dose: Not Given Folic Acid (Folic Acid -) 1 mg PO DAILY [facility] Last Admin: 12/31/17 09:29 Dose: 1 mg Multivitamins/Minerals/Vitamin C (Tab-A-Vit -) 1 tab PO DAILY [facility] Last Admin: 12/31/17 09:29 Dose: 1 tab Thiamine HCl (Vitamin B1 -) 100 mg PO DAILY [facility] Last Admin: 12/31/17 09:29 Dose: 100 mg - Objective Vital Signs: Vital Signs Temperature 98.5 F 12/31/17 05:09 Pulse Rate 57 L 12/31/17 09:28 Respiratory Rate 20 12/31/17 05:09 Blood Pressure 113/63 12/31/17 05:09 O2 Sat by Pulse Oximetry (%) 99 12/30/17 21:00 General: Well developed. Well nourished. No acute distress. Head: Normocephalic. Atraumatic, Eyes: PERRLA, EOMI. Sclerae anicteric. Conjunctivae clear. Neck: Supple. No JVD. No bruits. Heart: Normal S1, S2: Irregularly regular rhythm and rate. No murmur. No gallop or rub. Lungs: Symmetrical air entry with prolonged expiration. Scattered wheezing. No crackle. No rhonchi. Abdomen: Soft. Bowel sound positive. Non tender. No masses. Extremities: No edema. Venous stasis. No clubbing or cyanosis. PD 2+, equal bilaterally. Neuro: Intact, no focal findings. AAO X3. Labs: CBC, BMP 12/29/17 06:00 12/28/17 22:00 Assessment/Plan 67 year old male with no PMHx (on no meds) admitted 12/28/2017 with SOB, chest pain and palpitations. Patient was on a one week alcohol and crack/cocaine binge. Went to detox and there developed sudden sob/mild nonradiating central chest pain/palpitations. In ER, noted to be in afib with rvr and started on diltiazem. -TSH is within normal range. EKG: afib with VR 142, nonspecific T wave abnormalities Echo 12/30/2017: Normal LV size, wall motion and systolic function. LVEF = 65%. Normal RV. Borderline for LA dilatation. No significant valvular abnormalities. - Remains in Afib with controlled ventricular response and episodes of slow VR and short pauses. Decrease Diltiazem to 180 mg daily. Discontinue Digoxin. Monitor lytes and keep K and Mg in normal range Continue pulley maintainer. The patient has no risk factors of CVA and he is not candidate for long-term anticoagulation because of alcohol and cocaine abuse. Continue aspirin 81 mg daily. -Need to monitor withdrawal symptoms. Will follow patient
[2017-12-31] MEDS: POLYETHYLENE GLYCOL 3350 119 GM BTL PO ONE ×2 (13:52→15:15)
--- NOTE | 2017-12-31 14:21 | PN ---
Physical Exam: SUBJECTIVE: Patient seen and examined No acute events overnight. Patient feels restless this morning. Patient had minor pauses on telemetry monitoring. OBJECTIVE: Vital Signs Period Temp Pulse Resp BP Sys/Mackey Pulse Ox Last 24 Hr 98 F-98.5 F 57-103 18-20 105-127/54-68 99-99 GENERAL: Awake, alert, and fully oriented, in no acute distress. +Mild tremors HEAD: Normal with no signs of trauma. EYES: Extraocular movements intact, sclera anicteric, conjunctiva clear. No lid lag. EARS, NOSE, THROAT: Ears normal, nares patent, oropharynx clear without exudates. Moist mucous membranes. NECK: Normal range of motion, supple without lymphadenopathy, JVD, or masses. LUNGS: Breath sounds equal, clear to auscultation bilaterally. No wheezes, and no crackles. No accessory muscle use. HEART: Irregularly irregular, normal S1 and S2 without murmur, rub or gallop. ABDOMEN: Soft, nontender, not distended, normoactive bowel sounds, no guarding, no rebound, no masses. No hepatomegaly or splenomegaly. MUSCULOSKELETAL: Normal range of motion at all joints. No bony deformities or tenderness. No CVA tenderness. UPPER EXTREMITIES: 2+ pulses, warm, well-perfused. No cyanosis. No clubbing. No peripheral edema. LOWER EXTREMITIES: 2+ pulses, warm, well-perfused. No calf tenderness. No peripheral edema. NEUROLOGICAL: Cranial nerves II-XII intact. Normal speech. Normal gait. PSYCHIATRIC: Cooperative. Good eye contact. Appropriate mood and affect. SKIN: Warm, dry, normal turgor, no rashes or lesions noted, normal capillary refill. Active Medications Generic Name Dose Route Start Last Admin Trade Name Freq PRN Reason Stop Dose Admin Aspirin 81 mg 12/29/17 10:00 12/31/17 09:29 Asa - PO 81 mg DAILY [facility] Administration Atorvastatin Calcium 10 mg 12/29/17 22:00 12/30/17 22:18 Lipitor - PO 10 mg HS [facility] Administration Chlordiazepoxide HCl 15 mg 12/31/17 05:00 12/31/17 11:19 Librium - PO 12/31/17 23:01 15 mg [id number] [facility] Administration Chlordiazepoxide HCl 25 mg 12/29/17 00:50 12/31/17 02:58 Librium - PO 01/01/18 00:49 25 mg Q4H PRN Administration WITHDRAWAL(CONT SUBST) Diltiazem HCl 180 mg 12/31/17 09:59 12/31/17 13:51 Cardizem Cd - PO Not Given DAILY [facility] Folic Acid 1 mg 12/29/17 10:15 12/31/17 09:29 Folic Acid - PO 1 mg DAILY [facility] Administration Multivitamins/Minerals/Vitamin C 1 tab 12/29/17 10:15 12/31/17 09:29 Tab-A-Vit - PO 1 tab DAILY [facility] Administration Thiamine HCl 100 mg 12/29/17 10:15 12/31/17 09:29 Vitamin B1 - PO 100 mg DAILY [facility] Administration ASSESSMENT/PLAN: 67 year old M with no pmh presented with new onset atrial fibrillation #Atrial fibrillation, new onset. Chadsvasc 1 -Echo reviewed -continue asa 81 mg -Patient bradycardic -Cardizem decreased to 180 mg CD , will give if patient becomes tachycardic -Digoxin stopped -Cardiology on board #Alcohol detox, improving -librium protocol -thiamine, folate, multivitamin #HLD -continue lipitor #fen/gi -no ivf -wnl -na controlled diet #ppx -scds Visit type - Emergency Visit Emergency Visit: Yes ED Registration Date: 12/28/17 Care time: The patient presented to the Emergency Department on the above date and was hospitalized for further evaluation of their emergent condition. - New Patient This patient is new to me today: No - Critical Care Critical Care patient: No
--- NOTE | 2017-12-31 16:31 | PN ---
Teaching Attending Note Name of Resident: Juan Ramon Polk ATTENDING PHYSICIAN STATEMENT I saw and evaluated the patient. I reviewed the resident's note and discussed the case with the resident. I agree with the resident's findings and plan as documented. SUBJECTIVE: no fever or chills. no CP . OBJECTIVE: NAD, comfortable HEENT: MMM, No JVD today CV: irreg irreg, rate in 50s Lungs: CTAB Ext: no edema, no erythema , no tremor Assessment/Plan: 67 y/o man with h/o ALcohol abuse and cocaine abuse who presented from [facility] due to palpitations and CP , he was found to have A fib with RVR 1- A fib with RVR. triggered by alcohol and cocaine. tele reviewed with repetitive 2.5 second pauses. with bradycardia echo reviewed. - cardizem decreaed to 180, but pt did not get the beatriz due ot HR in 50s - off dig - cont ASA - No signs of heart failure today. s/p one dose of lasix yesterday 2- ETOH abuse: - cont detox with lilbrium - Thiamine, folate and MVT 3- Hyperlipidemia : -cont lipitor dispo : will monitor on tele due to pauses. possible dc to [facility] tomorrow
[2017-12-31] MEDS: ATORVASTATIN CA 10 MG TABLET (FP) PO SCH (21:11)
[2017-12-31] MEDS ORDERED: diphenhydrAMINE HCL 25 MG CAPSULE (FP) PO ONE ×2 (21:30→23:15)
[2017-12-31] MEDS ORDERED: DOCUSATE SODIUM 100 MG CAPSULE (FP) PO ONE (21:30)
[2018-01-01] MEDS: FOLIC ACID 1 MG TABLET (FP) PO SCH (09:31)
[2018-01-01] MEDS: MULTIVITAMINS (DAILY MVI) TABLET (FP) PO SCH (09:31)
[2018-01-01] MEDS: ASPIRIN 81 MG CHEWABLE TABLETS PO SCH (09:32)
[2018-01-01] MEDS: THIAMINE HCL 100 MG TABLET (FP) PO SCH (09:32)
--- NOTE | 2018-01-01 09:36 | DS ---
Physical Exam: Selected Entries 01/01/18 09:00 Temperature 98.0 F Pulse Rate 68 Respiratory 20 Rate Blood Pressure 110/60 O2 Sat by Pulse 99 Oximetry (%) Oxygen Delivery Room Air Method Laboratory Tests 12/28/17 12/29/17 12/29/17 22:00 06:00 06:00 WBC 7.9 Hgb 13.7 Hct 40.4 Plt Count 156 Sodium 143 Potassium 3.8 Chloride 109 H Carbon Dioxide 23 Anion Gap 11 BUN 15 D Creatinine 0.9 Random Glucose 113 H D Hemoglobin A1c % Creatine Kinase 359 H 262 Triglycerides 179 H Cholesterol 191 Total LDL Cholesterol 134 H HDL Cholesterol 50 TSH 1.93 12/29/17 06:00 WBC Hgb Hct Plt Count Sodium Potassium Chloride Carbon Dioxide Anion Gap BUN Creatinine Random Glucose Hemoglobin A1c % 6.2 H Creatine Kinase Triglycerides Cholesterol Total LDL Cholesterol HDL Cholesterol TSH cxr- old rib trauma, no acute pathology echo- LA borderline dilated, RA mildly dilated ekg- atrial fibrillation. HOSPITAL COURSE: Date of Admission:12/28/17 Date of Discharge: 01/01/18 67 year old M with hx of alcohol and cocaine abuse presented with chest pain/ palpitations from [facility] found to have new onset atrial fibrillation with rvr. For his atrial fibrillation, patient was originally started on cardizem 30q6h. This did not control his rate, so he was switched to Cardizem CD, which was uptitrated to 360 mg due to tachycardia. He became bradycardic while he was here so his cardizem CD was decreased to 180 mg. He will be dc on cardizem cd 180 mg and he is currently in NSR. Patient also received 1 dose of digoxin 0.25 mg while he was here. For his alcohol/cocaine abuse, he was detoxed with the librium protocol. He will return to [facility] for rehab. He was found to have hyperlipidemia and started on lipitor while he was here Minutes to complete discharge: 38 Discharge Summary Reason For Visit: A FIB, ALCOHOL ABUSE, COCAINE ABUSE Current Active Problems Afib (Acute) HLD (hyperlipidemia) (Acute) Alcohol abuse (Chronic) Cocaine dependence, episodic (Chronic) Condition: Improved - Instructions Diet, Activity, Other Instructions: You were transferred from [facility] for investigation of an abnormal heart rhythm called atrial fibrillation. Please follow up with a primary care provider within 1 week. A referral to our resident clinic has been provided if you do not have one. Please follow up with a watch guard gate within 1 week. A referral has been provided for you. Continue the medications you received in the hospital -Cardizem CD 180 mg daily -Aspirin 81 mg daily -Lipitor 10 mg at night Continue your home medications as prescribed. You will be returning to [facility] for rehab. If you have chest pain, shortness of breath, or any new/worsening symptoms please come back to the hospital immediately. Referrals: Salvatore Grubbs MD [Staff Physician] - ON STAFF,NOT [Non Staff, Medical] - Roly Figueroa MD [Staff Physician] - Disposition: TRANSFER ACUTE CARE/OTHER HOSP - Home Medications Comprehensive Discharge Medication List: Ambulatory Orders Aspirin [ASA -] 81 mg PO DAILY #30 tab.chew 12/30/17 Atorvastatin Ca [Lipitor] 10 mg PO HS #30 tablet 12/30/17 Digoxin [Lanoxin -] 0.25 mg PO DAILY #30 tablet 12/30/17 Diltiazem Cd [Cardizem Cd -] 180 mg PO DAILY #30 cap.cd.24h 01/01/18 This patient is new to me today: No Emergency Visit: Yes ED Registration Date: 12/28/17 Care time: The patient presented to the Emergency Department on the above date and was hospitalized for further evaluation of their emergent condition. Critical Care patient: No - Discharge Referral Referred to [facility] No
[2018-01-01 09:45] VITALS: BP 110/60; PULSE 68; TEMP 98
--- NOTE | 2018-01-01 13:10 | PN ---
Teaching Attending Note Name of Resident: Juan Ramon Polk ATTENDING PHYSICIAN STATEMENT I saw and evaluated the patient. I reviewed the resident's note and discussed the case with the resident. I agree with the resident's findings and plan as documented. SUBJECTIVE: OBJECTIVE: Vital Signs Period Temp Pulse Resp BP Sys/Mackey Pulse Ox Last 24 Hr 97.5 F-99.3 F 54-73 18-218 103-132/60-78 99-99 ASSESSMENT AND PLAN: 67 y/o man with h/o ALcohol abuse and cocaine abuse who presented from [facility] due to palpitations and CP , he was found to have A fib with RVR 1- A fib with RVR. triggered by alcohol and cocaine. tele reviewed with repetitive 2.5 second pauses. with bradycardia echo reviewed. - cardizem decreaed to 180, but pt did not get the beatriz due ot HR in 50s - off dig - cont ASA - No signs of heart failure today. s/p one dose of lasix yesterday 2- ETOH abuse: - cont detox with lilbrium - Thiamine, folate and MVT 3- Hyperlipidemia : -cont lipitor dispo : will monitor on tele due to pauses. possible dc to [facility] tomorrow
== END 2018-01-01 11:27 | disposition short-term general hospital (02) | DRG 309 ==
LOC: SUPCPDRO 21:28 → JER 21:28 → JERBED 23:42 → J4W 12-29 03:28
PROVIDERS: ADMIT Internal Medicine; ATTEND Internal Medicine
PROC: HZ2ZZZZ Detoxification Services for Substance Abuse Treatment (ICD-10-PCS; principal; 2017-12-29)
DX: I48.91 Unspecified atrial fibrillation (principal); F10.239 Alcohol dependence with withdrawal, unspecified; J45.909 Unspecified asthma, uncomplicated; Z96.651 Presence of right artificial knee joint; F17.200 Nicotine dependence, unspecified, uncomplicated; E78.5 Hyperlipidemia, unspecified; R07.89 Other chest pain; R00.0 Tachycardia, unspecified; F14.10 Cocaine abuse, uncomplicated
CPT/HCPCS: 36415; 71045-TC-FY; 80053; 80061; 80307; 81003; 81015; 82550; 82553; 83036; 83721; 83735; 84100; 84443; 84484; 85025; 93005; 93010; 93306-TC; 99283-25; J7030

== ENCOUNTER 2018-01-01 11:54 | Inpatient (IN) | payer OTHER ==
[2018-01-01 12:26] VITALS: BMI 30.5
[2018-01-01] MEDS ORDERED: MENTHOL/PHENOL 1 EACH UD MM PRN (12:27)
[2018-01-01] MEDS ORDERED: P-EPHED 60MG/TRIPROLIDI 2.5MG TABLET PO PRN (12:27)
[2018-01-01] MEDS ORDERED: NICOTINE POLACRILEX 2 MG GUM BUC PRN (12:27)
[2018-01-01] MEDS ORDERED: MAG HYDROX/AL HYDROX/SIMETH 30 ML UNIT-DOSE CUP PO PRN (12:27)
[2018-01-01] MEDS ORDERED: LOPERAMIDE HCL 2 MG CAPSULE PO PRN (12:27)
[2018-01-01] MEDS ORDERED: MAGNESIUM CITRATE 300 ML BOTTLE PO PRN (12:27)
[2018-01-01] MEDS ORDERED: ACETAMINOPHEN 325 MG TABLET (FP) PO PRN (12:27)
[2018-01-01] MEDS ORDERED: guaiFENesin/D-METHORPHAN HB 10 ML UNIT-DOSE CUPS PO PRN (12:27)
--- NOTE | 2018-01-01 12:27 | HP ---
ILANA SOLOMON Rehab Assess/Revision - Admission History Admitted to Rehab from: [facility] Date of Admission to Rehab: 01/01/2018 - Vital signs Vital Signs: Vital Signs Period Temp Pulse Resp BP Sys/Mackey Pulse Ox Last 24 Hr 96.0 F 96 20 102/86 - Findings Detox History & Physical reviewed: Yes Concur with findings: Yes Comments/Additional Findings: toño returned from [facility] after episode of chestpain with rapid afib, now medically stable, cont medications Inpatient Rehab Admission - Initial Determination Are CD services needed?: Yes Free of communicable disease: Yes Not in need of hospitalization: Yes - Rehab Admission Criteria Comorbidities: Yes Patient is meeting Inpatient Rehab admission criteria:: Yes (needs follow up when dischargeed from rehab for medical care. )
[2018-01-01] MEDS: hydrOXYzine PAMOATE 50 MG CAPSULE (FP) PO PRN ×2 (14:36→21:46)
[2018-01-01] MEDS: NICOTINE 7 MG/24 HOURS TOPICAL PATCH TD SCH (14:38)
[2018-01-01] MEDS: cloNIDine HCL 0.1 MG TABLET PO SCH (21:45)
[2018-01-01] MEDS: ATORVASTATIN CA 10 MG TABLET (FP) PO SCH (21:45)
[2018-01-01] MEDS: THIAMINE HCL 100 MG TABLET (FP) PO SCH (21:45)
[2018-01-02] MEDS: cloNIDine HCL 0.1 MG TABLET PO SCH ×2 (09:40→22:03)
[2018-01-02] MEDS: ASPIRIN 81 MG CHEWABLE TABLETS PO SCH (09:40)
[2018-01-02] MEDS: PRENATAL VITAMINS W/ FOLIC ACID TABLET (FP) PO SCH (09:43)
[2018-01-02] MEDS: NICOTINE 7 MG/24 HOURS TOPICAL PATCH TD SCH (09:43)
[2018-01-02] MEDS: hydrOXYzine PAMOATE 50 MG CAPSULE (FP) PO PRN ×3 (09:44→22:05)
--- NOTE | 2018-01-02 13:42 | HP ---
Psychiatrist Admission - Data Date of interview: 01/02/18 Admission source: [facility] Identifying data: This is one of the several 5N admission for this 67 years old male, father of a 26 years old daughter, unemployed on SSD, homeless Medical History: Significant for COPD and a history of orthosurgery for right knee replacement in December 2009. Afib. Smokes 8 cigarettes daily Psychiatric History: Patient with history of depression and anxiety, first psychiatric treatment in 2003, saw the private psychiatrist to address depression related to major life stressors(divorce, lossing job and apartment on [address]), was treated with Cymbalta, tried Seroquel was very sedated, Trazodone, Ambien for insomnia. Reports no history of psychiatric hospitalizations. Patient was in detox and transferred to [facility] ED for C/O chest pain and palpitaions. He is not on any medications now. Physical/Sexual Abuse/Trauma History: Denies history of sexual, abuse, traaumatized by his divorce and separation from his daughter(lives in [facility] and having a problems with addiction). Vital Signs: Vital Signs - 24 hr 01/01/18 01/02/18 01/02/18 21:45 03:30 07:25 Temperature 98.9 F Pulse Rate 67 99 H Respiratory 18 18 Rate Blood Pressure 115/67 112/54 Allergies/Adverse Reactions: Allergies Allergy/AdvReac Type Severity Reaction Status Date / Time Penicillins Allergy Severe Swelling Verified 01/01/18 12:14 Date of last physical exam: 01/01/18 Concur with the findings of this exam: Yes - Substance Abuse/Tx History Hx Alcohol Use: Yes Hx Substance Use: Yes Substance Use Type: Alcohol, Cocaine Hx Substance Use Treatment: Yes (several tr in detox/rehab.) Mental Status Exam - Mental Status Exam Alert and Oriented to: Place, Person Cognitive Function: Grossly Intact Patient Appearance: Well Groomed Mood: Depressed, Sad Affect: Appropriate, Mood Congruent Patient Behavior: Cooperative Speech Pattern: Appropriate Voice Loudness: Normal Thought Process: Goal Oriented Thought Disorder: Not Present Hallucinations: Denies Suicidal Ideation: Denies Homicidal Ideation: Denies Insight/Judgement: Fair Sleep: Fair Appetite: Fair Muscle strength/Tone: Normal Gait/Station: Normal Psychiatric Findings - Problem List ([place] 1, 2,3) (1) Alcohol dependence Current Visit: Yes Status: Acute (2) Afib Current Visit: No Status: Acute (3) MDD (major depressive disorder) Current Visit: No Status: Acute (4) Cocaine dependence, episodic Current Visit: No Status: Chronic Comment: . (5) Nicotine dependence Current Visit: No Status: Chronic Qualifiers: Comment: . - Initial Treatment Plan Initial Treatment Plan: No psychopharmoclogy at this time, will monitor porgress , will restart treatment when indicated.
[2018-01-02] MEDS: DIGOXIN 0.25 MG TABLET (FP) PO SCH (14:31)
[2018-01-02] MEDS: THIAMINE HCL 100 MG TABLET (FP) PO SCH (22:03)
[2018-01-02] MEDS: ATORVASTATIN CA 10 MG TABLET (FP) PO SCH (22:03)
[2018-01-02] MEDS: MAGNESIUM HYDROX 2400MG/30ML ORAL SUSPENSION 30 ML CUP PO PRN (22:05)
[2018-01-03] MEDS: MAGNESIUM HYDROX 2400MG/30ML ORAL SUSPENSION 30 ML CUP PO PRN (07:55)
[2018-01-03] MEDS: ASPIRIN 81 MG CHEWABLE TABLETS PO SCH (10:32)
[2018-01-03] MEDS: PRENATAL VITAMINS W/ FOLIC ACID TABLET (FP) PO SCH (10:32)
[2018-01-03] MEDS: DIGOXIN 0.25 MG TABLET (FP) PO SCH (10:32)
[2018-01-03] MEDS: cloNIDine HCL 0.1 MG TABLET PO SCH ×2 (10:33→22:09)
[2018-01-03] MEDS: NICOTINE 7 MG/24 HOURS TOPICAL PATCH TD SCH (10:33)
[2018-01-03] MEDS: hydrOXYzine PAMOATE 50 MG CAPSULE (FP) PO PRN ×2 (15:29→22:10)
[2018-01-03] MEDS: MELATONIN 5 MG TABLETS PO PRN (22:09)
[2018-01-03] MEDS: THIAMINE HCL 100 MG TABLET (FP) PO SCH (22:09)
[2018-01-03] MEDS: ATORVASTATIN CA 10 MG TABLET (FP) PO SCH (22:09)
[2018-01-04] MEDS: ASPIRIN 81 MG CHEWABLE TABLETS PO SCH (10:47)
[2018-01-04] MEDS: PRENATAL VITAMINS W/ FOLIC ACID TABLET (FP) PO SCH (10:47)
[2018-01-04] MEDS: cloNIDine HCL 0.1 MG TABLET PO SCH ×2 (10:47→22:03)
[2018-01-04] MEDS: DIGOXIN 0.25 MG TABLET (FP) PO SCH (10:49)
[2018-01-04] MEDS: NICOTINE 7 MG/24 HOURS TOPICAL PATCH TD SCH (10:50)
[2018-01-04] MEDS: hydrOXYzine PAMOATE 50 MG CAPSULE (FP) PO PRN ×2 (10:51→22:04)
[2018-01-04] MEDS: THIAMINE HCL 100 MG TABLET (FP) PO SCH (22:03)
[2018-01-04] MEDS: ATORVASTATIN CA 10 MG TABLET (FP) PO SCH (22:03)
[2018-01-04] MEDS: MELATONIN 5 MG TABLETS PO PRN (22:04)
[2018-01-05] MEDS: ASPIRIN 81 MG CHEWABLE TABLETS PO SCH (10:17)
[2018-01-05] MEDS: PRENATAL VITAMINS W/ FOLIC ACID TABLET (FP) PO SCH (10:17)
[2018-01-05] MEDS: cloNIDine HCL 0.1 MG TABLET PO SCH ×2 (10:17→21:45)
[2018-01-05] MEDS: DIGOXIN 0.25 MG TABLET (FP) PO SCH (10:18)
[2018-01-05] MEDS: NICOTINE 7 MG/24 HOURS TOPICAL PATCH TD SCH (10:18)
[2018-01-05] MEDS: THIAMINE HCL 100 MG TABLET (FP) PO SCH (21:45)
[2018-01-05] MEDS: hydrOXYzine PAMOATE 50 MG CAPSULE (FP) PO PRN (21:45)
[2018-01-05] MEDS: MELATONIN 5 MG TABLETS PO PRN (21:45)
[2018-01-05] MEDS: ATORVASTATIN CA 10 MG TABLET (FP) PO SCH (21:45)
[2018-01-06] MEDS: DIGOXIN 0.25 MG TABLET (FP) PO SCH (10:50)
[2018-01-06] MEDS: ASPIRIN 81 MG CHEWABLE TABLETS PO SCH (10:50)
[2018-01-06] MEDS: cloNIDine HCL 0.1 MG TABLET PO SCH (10:50)
[2018-01-06] MEDS: NICOTINE 7 MG/24 HOURS TOPICAL PATCH TD SCH (10:51)
[2018-01-06] MEDS: PRENATAL VITAMINS W/ FOLIC ACID TABLET (FP) PO SCH (10:51)
--- NOTE | 2018-01-06 12:02 | PN ---
[facility] Progress Note Note: Patient presents with complaints of feeling tired and low BP. Vital Signs Temperature 97.9 F 01/06/18 07:04 Pulse Rate 52 L 01/06/18 10:50 Respiratory Rate 18 01/06/18 07:04 Blood Pressure 90/50 01/06/18 07:04 O2 Sat by Pulse Oximetry (%) Patient c/o feeling tired. Recently started on medication for BP and AFIB. Patient states he does not want to take Clonidine because his pressure has been low and he feels tired. He denies CP, SOB and Dizziness. Obj: General: alert and oriented x 3. In No acute distress Car: S1S2. No gallops or murmurs noted Resp: CTA BL, no wheezes or rales Ext: full ROM, no edema A/P Low Blood pressure AFIB Will d/c clonidine Continue Digoxin and hold for pulse less than 60. Continue Cardizem as ordered. continue to monitor clinically
--- NOTE | 2018-01-06 15:42 | PN ---
Psychiatric Progress Note Vital Signs: Vital Signs Period Temp Pulse Resp BP Sys/Mackey Pulse Ox Last 24 Hr 97.9 F 52-61 -18 90-103/50-66 Date of Session: 01/06/18 Chief Complaint:: progress update HPI: The patient has adressed alcohol, nicotine dependence comorbid MDD. ROS: WNL Current Medications: Active Medications Generic Name Dose Route Start Last Admin Trade Name Freq PRN Reason Stop Dose Admin Acetaminophen 650 mg 01/01/18 12:27 01/01/18 14:37 Tylenol - PO 650 mg Q4H PRN Administration FEVER Al Hydroxide/Mg Hydroxide 30 ml 01/01/18 12:27 Mylanta Oral Suspension - PO Q6H PRN DYSPEPSIA Aspirin 81 mg 01/02/18 10:00 01/06/18 10:50 Asa - PO 81 mg DAILY TRISTIN Administration Atorvastatin Calcium 10 mg 01/01/18 22:00 01/05/18 21:45 Lipitor - PO 10 mg HS TRISTIN Administration Digoxin 0.25 mg 01/02/18 10:00 01/06/18 10:50 Lanoxin - PO 0.25 mg DAILY TRISTIN Administration Diltiazem HCl 180 mg 01/02/18 10:00 01/06/18 10:49 Cardizem Cd - PO 180 mg DAILY TRISTIN Administration Eucalyptus/Menthol/Phenol/Sorbitol 1 each 01/01/18 12:27 Cepastat Lozenge - MM Q4H PRN SORE THROAT Guaifenesin 10 ml 01/01/18 12:27 Robitussin Dm - PO Q6H PRN COUGH Hydroxyzine Pamoate 50 mg 01/01/18 12:27 01/05/18 21:45 Vistaril - PO 50 mg Q4H PRN Administration AGITATION Ibuprofen 400 mg 01/01/18 12:27 Motrin - PO Q6H PRN Pain Level 4-6 Loperamide HCl 4 mg 01/01/18 12:27 Imodium - PO Q6H PRN DIARRHEA Magnesium Citrate 300 ml 01/01/18 12:27 Citroma - PO Q48H PRN CONSTIPATION Magnesium Hydroxide 30 ml 01/01/18 12:27 01/03/18 07:55 Milk Of Magnesia - PO 30 ml DAILY PRN Administration CONSTIPATION Melatonin 5 mg 01/01/18 22:00 01/05/18 21:45 Melatonin PO 5 mg HS PRN Administration INSOMNIA Nicotine 7 mg 01/01/18 13:05 01/06/18 10:51 Nicoderm Patch - TD Not Given DAILY TRISTIN Nicotine Polacrilex 2 mg 01/01/18 12:27 Nicorette Gum - BUC Q2H PRN NICOTINE REPLACEMENT RX Multivit/Folic Acid/Iron 1 tab 01/02/18 10:00 01/06/18 10:51 Vitamins (Sjr) - PO 1 tab DAILY TRISTIN Administration Pseudoephedrine/Triprolidine 1 combo 01/01/18 12:27 Actifed - PO TID PRN NASAL CONGESTION Thiamine HCl 100 mg 01/01/18 22:00 01/05/18 21:45 Vitamin B1 - PO 100 mg HS TRISTIN Administration Medication(s) Change(s): add Belsomra Current Side Effect: No Lab tests ordered: No Lab tests reviewed: Yes Provider note:: Patient was seen today, he mainly spoke today about issues related to his family. Felling of sadness predominated in this session, supportive therapy provided, patient was encouraed to ventilate. Patient reports he is unable to sleep. Discussed indications and properties od Belsomra , patient agreed to start. Total face to face time:: 25 Mental Status Exam - Mental Status Exam Alert and Oriented to: Time, Place, Person Cognitive Function: Good Patient Appearance: Well Groomed Mood: Anxious Patient Behavior: Appropriate, Cooperative Speech Pattern: Clear, Appropriate Voice Loudness: Normal Thought Process: Intact, Goal Oriented Thought Disorder: Not Present Hallucinations: Denies Suicidal Ideation: Denies Homicidal Ideation: Denies Insight/Judgement: Fair Sleep: Fair Appetite: Good Muscle strength/Tone: Normal Gait/Station: Normal Psychiatric Treatment Plan - Problem List (1) Alcohol dependence Current Visit: Yes (2) Afib Current Visit: No (3) MDD (major depressive disorder) Current Visit: No (4) Cocaine dependence, episodic Current Visit: No Comment: . (5) Nicotine dependence Current Visit: No Qualifiers: Comment: .
[2018-01-06] MEDS: SUVOREXANT 10 MG TABLET PO SCH (21:45)
[2018-01-06] MEDS: ATORVASTATIN CA 10 MG TABLET (FP) PO SCH (21:45)
[2018-01-06] MEDS: THIAMINE HCL 100 MG TABLET (FP) PO SCH (21:45)
[2018-01-07] MEDS: DIGOXIN 0.25 MG TABLET (FP) PO SCH (10:16)
[2018-01-07] MEDS: PRENATAL VITAMINS W/ FOLIC ACID TABLET (FP) PO SCH (10:16)
[2018-01-07] MEDS: ASPIRIN 81 MG CHEWABLE TABLETS PO SCH (10:16)
[2018-01-07] MEDS: NICOTINE 7 MG/24 HOURS TOPICAL PATCH TD SCH (10:17)
[2018-01-07] MEDS: THIAMINE HCL 100 MG TABLET (FP) PO SCH (21:38)
[2018-01-07] MEDS: SUVOREXANT 10 MG TABLET PO SCH (21:38)
[2018-01-07] MEDS: ATORVASTATIN CA 10 MG TABLET (FP) PO SCH (21:38)
[2018-01-07] MEDS: hydrOXYzine PAMOATE 50 MG CAPSULE (FP) PO PRN (21:38)
[2018-01-08] MEDS: PRENATAL VITAMINS W/ FOLIC ACID TABLET (FP) PO SCH (10:15)
[2018-01-08] MEDS: NICOTINE 7 MG/24 HOURS TOPICAL PATCH TD SCH (10:15)
[2018-01-08] MEDS: ASPIRIN 81 MG CHEWABLE TABLETS PO SCH (10:15)
[2018-01-08] MEDS: DIGOXIN 0.25 MG TABLET (FP) PO SCH (10:15)
[2018-01-08] MEDS: THIAMINE HCL 100 MG TABLET (FP) PO SCH (21:53)
[2018-01-08] MEDS: MELATONIN 5 MG TABLETS PO PRN (21:53)
[2018-01-08] MEDS: ATORVASTATIN CA 10 MG TABLET (FP) PO SCH (21:53)
[2018-01-08] MEDS: hydrOXYzine PAMOATE 50 MG CAPSULE (FP) PO PRN (21:54)
[2018-01-08] MEDS: SUVOREXANT 10 MG TABLET PO SCH (23:11)
[2018-01-09] MEDS: ASPIRIN 81 MG CHEWABLE TABLETS PO SCH (10:25)
[2018-01-09] MEDS: PRENATAL VITAMINS W/ FOLIC ACID TABLET (FP) PO SCH (10:25)
[2018-01-09] MEDS: DIGOXIN 0.25 MG TABLET (FP) PO SCH (10:26)
[2018-01-09] MEDS: NICOTINE 7 MG/24 HOURS TOPICAL PATCH TD SCH (10:27)
--- NOTE | 2018-01-09 14:19 | PN ---
S Progress Note Note: patient reports that Belsomra not effective, will d/c and add Benadryl, continue to monitor progress.
[2018-01-09] MEDS: THIAMINE HCL 100 MG TABLET (FP) PO SCH (22:06)
[2018-01-09] MEDS: diphenhydrAMINE HCL 50 MG CAPSULE PO PRN (22:06)
[2018-01-09] MEDS: ATORVASTATIN CA 10 MG TABLET (FP) PO SCH (22:06)
[2018-01-10] MEDS: ASPIRIN 81 MG CHEWABLE TABLETS PO SCH (10:15)
[2018-01-10] MEDS: PRENATAL VITAMINS W/ FOLIC ACID TABLET (FP) PO SCH (10:15)
[2018-01-10] MEDS: DIGOXIN 0.25 MG TABLET (FP) PO SCH (10:16)
[2018-01-10] MEDS: NICOTINE 7 MG/24 HOURS TOPICAL PATCH TD SCH (10:17)
[2018-01-10] MEDS: ATORVASTATIN CA 10 MG TABLET (FP) PO SCH (21:36)
[2018-01-10] MEDS: THIAMINE HCL 100 MG TABLET (FP) PO SCH (21:36)
[2018-01-10] MEDS: diphenhydrAMINE HCL 50 MG CAPSULE PO PRN (21:36)
[2018-01-11] MEDS: PRENATAL VITAMINS W/ FOLIC ACID TABLET (FP) PO SCH (10:14)
[2018-01-11] MEDS: ASPIRIN 81 MG CHEWABLE TABLETS PO SCH (10:14)
[2018-01-11] MEDS: DIGOXIN 0.25 MG TABLET (FP) PO SCH (10:15)
[2018-01-11] MEDS: ATORVASTATIN CA 10 MG TABLET (FP) PO SCH (21:54)
[2018-01-11] MEDS: THIAMINE HCL 100 MG TABLET (FP) PO SCH (21:54)
[2018-01-11] MEDS: diphenhydrAMINE HCL 50 MG CAPSULE PO PRN (21:55)
[2018-01-12] MEDS: ASPIRIN 81 MG CHEWABLE TABLETS PO SCH (10:31)
[2018-01-12] MEDS: PRENATAL VITAMINS W/ FOLIC ACID TABLET (FP) PO SCH (10:31)
[2018-01-12] MEDS: DIGOXIN 0.25 MG TABLET (FP) PO SCH (10:32)
[2018-01-12] MEDS: THIAMINE HCL 100 MG TABLET (FP) PO SCH (21:52)
[2018-01-12] MEDS: diphenhydrAMINE HCL 50 MG CAPSULE PO PRN (21:52)
[2018-01-12] MEDS: ATORVASTATIN CA 10 MG TABLET (FP) PO SCH (21:52)
[2018-01-13] MEDS: PRENATAL VITAMINS W/ FOLIC ACID TABLET (FP) PO SCH (10:31)
[2018-01-13] MEDS: ASPIRIN 81 MG CHEWABLE TABLETS PO SCH (10:31)
[2018-01-13] MEDS: DIGOXIN 0.25 MG TABLET (FP) PO SCH (10:32)
[2018-01-13] MEDS: diphenhydrAMINE HCL 50 MG CAPSULE PO PRN (21:55)
[2018-01-13] MEDS: ATORVASTATIN CA 10 MG TABLET (FP) PO SCH (21:55)
[2018-01-13] MEDS: THIAMINE HCL 100 MG TABLET (FP) PO SCH (21:55)
[2018-01-14] MEDS: ASPIRIN 81 MG CHEWABLE TABLETS PO SCH (10:29)
[2018-01-14] MEDS: PRENATAL VITAMINS W/ FOLIC ACID TABLET (FP) PO SCH (10:29)
[2018-01-14] MEDS: DIGOXIN 0.25 MG TABLET (FP) PO SCH (10:36)
--- NOTE | 2018-01-14 13:33 | PN ---
S Progress Note Note: Patient with hx of A-fib. Patient reports he requested to d/c clonidine, and spoke with psych regarding insomnia. As per patient he reports he was advise by psych that digioxin cause the insomnia. Patient currently medically stable in no apparent distress. Vital Signs Temperature 97.8 F 01/14/18 07:13 Pulse Rate 79 01/14/18 10:00 Respiratory Rate 18 01/14/18 07:13 Blood Pressure 111/76 01/14/18 10:00 O2 Sat by Pulse Oximetry (%) - Insomnia Plan: Continue current medications Sleep hygiene discusses and encourage to take benadryl QHS as recommended by psych Patient was educated on the importance to abstain from cocaine and alcohol use and ramifications of such behavior, patient advise to follow up with pumper helper upon d/c fro continue of care regarding A-Fib Continue to monitor
[2018-01-14] MEDS: THIAMINE HCL 100 MG TABLET (FP) PO SCH (21:42)
[2018-01-14] MEDS: ATORVASTATIN CA 10 MG TABLET (FP) PO SCH (21:42)
[2018-01-14] MEDS: diphenhydrAMINE HCL 50 MG CAPSULE PO PRN (21:42)
[2018-01-15] MEDS: PRENATAL VITAMINS W/ FOLIC ACID TABLET (FP) PO SCH (10:39)
[2018-01-15] MEDS: ASPIRIN 81 MG CHEWABLE TABLETS PO SCH (10:39)
[2018-01-15] MEDS: DIGOXIN 0.25 MG TABLET (FP) PO SCH (10:41)
[2018-01-15] MEDS: diphenhydrAMINE HCL 50 MG CAPSULE PO PRN (21:41)
[2018-01-15] MEDS: ATORVASTATIN CA 10 MG TABLET (FP) PO SCH (21:41)
[2018-01-15] MEDS: THIAMINE HCL 100 MG TABLET (FP) PO SCH (21:42)
[2018-01-16] MEDS: ASPIRIN 81 MG CHEWABLE TABLETS PO SCH (10:41)
[2018-01-16] MEDS: PRENATAL VITAMINS W/ FOLIC ACID TABLET (FP) PO SCH (10:42)
[2018-01-16] MEDS: DIGOXIN 0.25 MG TABLET (FP) PO SCH (10:44)
[2018-01-16] MEDS: diphenhydrAMINE HCL 50 MG CAPSULE PO PRN (21:55)
[2018-01-16] MEDS: ATORVASTATIN CA 10 MG TABLET (FP) PO SCH (21:55)
[2018-01-16] MEDS: THIAMINE HCL 100 MG TABLET (FP) PO SCH (21:55)
[2018-01-17] MEDS: ASPIRIN 81 MG CHEWABLE TABLETS PO SCH (10:39)
[2018-01-17] MEDS: PRENATAL VITAMINS W/ FOLIC ACID TABLET (FP) PO SCH (10:39)
[2018-01-17] MEDS: DIGOXIN 0.25 MG TABLET (FP) PO SCH (10:40)
[2018-01-17] MEDS: ATORVASTATIN CA 10 MG TABLET (FP) PO SCH (21:53)
[2018-01-17] MEDS: THIAMINE HCL 100 MG TABLET (FP) PO SCH (21:53)
[2018-01-17] MEDS: diphenhydrAMINE HCL 50 MG CAPSULE PO PRN (21:55)
[2018-01-18] MEDS: ASPIRIN 81 MG CHEWABLE TABLETS PO SCH (10:29)
[2018-01-18] MEDS: PRENATAL VITAMINS W/ FOLIC ACID TABLET (FP) PO SCH (10:29)
[2018-01-18] MEDS: DIGOXIN 0.25 MG TABLET (FP) PO SCH (10:29)
[2018-01-18] MEDS: IBUPROFEN 400 MG TABLET (FP) PO PRN (18:36)
[2018-01-18] MEDS: ATORVASTATIN CA 10 MG TABLET (FP) PO SCH (21:38)
[2018-01-18] MEDS: diphenhydrAMINE HCL 50 MG CAPSULE PO PRN (21:38)
[2018-01-18] MEDS: THIAMINE HCL 100 MG TABLET (FP) PO SCH (21:38)
[2018-01-19] MEDS: IBUPROFEN 400 MG TABLET (FP) PO PRN ×2 (04:18→13:58)
[2018-01-19] MEDS: PRENATAL VITAMINS W/ FOLIC ACID TABLET (FP) PO SCH (10:17)
[2018-01-19] MEDS: DIGOXIN 0.25 MG TABLET (FP) PO SCH (10:17)
[2018-01-19] MEDS: ASPIRIN 81 MG CHEWABLE TABLETS PO SCH (10:17)
[2018-01-19] MEDS: diphenhydrAMINE HCL 50 MG CAPSULE PO PRN (21:50)
[2018-01-19] MEDS: THIAMINE HCL 100 MG TABLET (FP) PO SCH (21:50)
[2018-01-19] MEDS: ATORVASTATIN CA 10 MG TABLET (FP) PO SCH (21:50)
[2018-01-20] MEDS: PRENATAL VITAMINS W/ FOLIC ACID TABLET (FP) PO SCH (10:46)
[2018-01-20] MEDS: ASPIRIN 81 MG CHEWABLE TABLETS PO SCH (10:46)
[2018-01-20] MEDS: DIGOXIN 0.25 MG TABLET (FP) PO SCH (10:47)
[2018-01-20] MEDS: THIAMINE HCL 100 MG TABLET (FP) PO SCH (21:35)
[2018-01-20] MEDS: diphenhydrAMINE HCL 50 MG CAPSULE PO PRN (21:35)
[2018-01-20] MEDS: ATORVASTATIN CA 10 MG TABLET (FP) PO SCH (21:35)
[2018-01-21] MEDS: ASPIRIN 81 MG CHEWABLE TABLETS PO SCH (09:32)
[2018-01-21] MEDS: PRENATAL VITAMINS W/ FOLIC ACID TABLET (FP) PO SCH (09:32)
[2018-01-21] MEDS: DIGOXIN 0.25 MG TABLET (FP) PO SCH (09:33)
[2018-01-21] MEDS: ATORVASTATIN CA 10 MG TABLET (FP) PO SCH (21:39)
[2018-01-21] MEDS: THIAMINE HCL 100 MG TABLET (FP) PO SCH (21:39)
[2018-01-21] MEDS: diphenhydrAMINE HCL 50 MG CAPSULE PO PRN (21:39)
[2018-01-22] MEDS: ASPIRIN 81 MG CHEWABLE TABLETS PO SCH (10:28)
[2018-01-22] MEDS: PRENATAL VITAMINS W/ FOLIC ACID TABLET (FP) PO SCH (10:28)
[2018-01-22] MEDS: DIGOXIN 0.25 MG TABLET (FP) PO SCH (10:30)
[2018-01-22] MEDS: ATORVASTATIN CA 10 MG TABLET (FP) PO SCH (21:43)
[2018-01-22] MEDS: diphenhydrAMINE HCL 50 MG CAPSULE PO PRN (21:43)
[2018-01-22] MEDS: THIAMINE HCL 100 MG TABLET (FP) PO SCH (21:43)
[2018-01-23] MEDS: ASPIRIN 81 MG CHEWABLE TABLETS PO SCH (10:39)
[2018-01-23] MEDS: PRENATAL VITAMINS W/ FOLIC ACID TABLET (FP) PO SCH (10:39)
[2018-01-23] MEDS: DIGOXIN 0.25 MG TABLET (FP) PO SCH (10:40)
[2018-01-23] MEDS: ATORVASTATIN CA 10 MG TABLET (FP) PO SCH (21:47)
[2018-01-23] MEDS: THIAMINE HCL 100 MG TABLET (FP) PO SCH (21:47)
[2018-01-23] MEDS: diphenhydrAMINE HCL 50 MG CAPSULE PO PRN (21:48)
[2018-01-24] MEDS: PRENATAL VITAMINS W/ FOLIC ACID TABLET (FP) PO SCH (09:56)
[2018-01-24] MEDS: DIGOXIN 0.25 MG TABLET (FP) PO SCH (09:56)
[2018-01-24] MEDS: ASPIRIN 81 MG CHEWABLE TABLETS PO SCH (09:56)
[2018-01-24] MEDS: diphenhydrAMINE HCL 50 MG CAPSULE PO PRN (21:37)
[2018-01-24] MEDS: ATORVASTATIN CA 10 MG TABLET (FP) PO SCH (21:37)
[2018-01-24] MEDS: THIAMINE HCL 100 MG TABLET (FP) PO SCH (21:37)
[2018-01-25] MEDS: PRENATAL VITAMINS W/ FOLIC ACID TABLET (FP) PO SCH (10:12)
[2018-01-25] MEDS: ASPIRIN 81 MG CHEWABLE TABLETS PO SCH (10:12)
[2018-01-25] MEDS: DIGOXIN 0.25 MG TABLET (FP) PO SCH (10:14)
[2018-01-25] MEDS: diphenhydrAMINE HCL 50 MG CAPSULE PO PRN (22:01)
[2018-01-25] MEDS: THIAMINE HCL 100 MG TABLET (FP) PO SCH (22:01)
[2018-01-25] MEDS: ATORVASTATIN CA 10 MG TABLET (FP) PO SCH (22:01)
[2018-01-26] MEDS: ASPIRIN 81 MG CHEWABLE TABLETS PO SCH (10:15)
[2018-01-26] MEDS: PRENATAL VITAMINS W/ FOLIC ACID TABLET (FP) PO SCH (10:15)
[2018-01-26] MEDS: DIGOXIN 0.25 MG TABLET (FP) PO SCH (10:16)
[2018-01-26] MEDS: THIAMINE HCL 100 MG TABLET (FP) PO SCH (21:48)
[2018-01-26] MEDS: ATORVASTATIN CA 10 MG TABLET (FP) PO SCH (21:48)
[2018-01-26] MEDS: diphenhydrAMINE HCL 50 MG CAPSULE PO PRN (21:48)
[2018-01-27] MEDS: ASPIRIN 81 MG CHEWABLE TABLETS PO SCH (10:36)
[2018-01-27] MEDS: DIGOXIN 0.25 MG TABLET (FP) PO SCH (10:36)
[2018-01-27] MEDS: PRENATAL VITAMINS W/ FOLIC ACID TABLET (FP) PO SCH (10:38)
[2018-01-27] MEDS: diphenhydrAMINE HCL 50 MG CAPSULE PO PRN (21:40)
[2018-01-27] MEDS: ATORVASTATIN CA 10 MG TABLET (FP) PO SCH (21:40)
[2018-01-27] MEDS: THIAMINE HCL 100 MG TABLET (FP) PO SCH (21:40)
[2018-01-28] MEDS: DIGOXIN 0.25 MG TABLET (FP) PO SCH (10:37)
[2018-01-28 10:39] VITALS: PULSE 52
[2018-01-28] MEDS: ASPIRIN 81 MG CHEWABLE TABLETS PO SCH (10:39)
[2018-01-28] MEDS: PRENATAL VITAMINS W/ FOLIC ACID TABLET (FP) PO SCH (10:39)
--- NOTE | 2018-01-28 13:11 | PN ---
[facility] Progress Note Note: Vital Signs Temperature 99.1 F 01/28/18 11:13 Pulse Rate 52 L 01/28/18 11:13 Respiratory Rate 18 01/28/18 11:13 Blood Pressure 131/79 01/28/18 11:13 O2 Sat by Pulse Oximetry (%) Patient reports concern regarding low HR while on Digioxin and Cardizem. Patient educated on the importance to follow up with pastry sous chef within 1-2 weeks post discharge. take medications as directed. Abstain from cocaine and alcohol. Seek medical attention for worsening symptoms.; patient verbalize understanding.
[2018-01-28] MEDS: ATORVASTATIN CA 10 MG TABLET (FP) PO SCH (21:49)
[2018-01-28] MEDS: THIAMINE HCL 100 MG TABLET (FP) PO SCH (21:49)
[2018-01-28] MEDS: diphenhydrAMINE HCL 50 MG CAPSULE PO PRN (21:49)
[2018-01-29 07:14] VITALS: BP 122/69; TEMP 98.2
--- NOTE | 2018-01-29 09:49 | PN ---
Psychiatric Progress Note Vital Signs: Vital Signs Period Temp Pulse Resp BP Sys/Mackey Pulse Ox Last 24 Hr 98.2 F-99.1 F 52-52 -18 122-131/69-79 Date of Session: 01/29/18 Chief Complaint:: discharge visit HPI: Patient has addressed alcohol, cocaine, nicotine dependence comrbid MDD. ROS: COPD and a history of orthosurgery for right knee replacement in December 2009. Afib. Current Medications: Active Medications Generic Name Dose Route Start Last Admin Trade Name Freq PRN Reason Stop Dose Admin Acetaminophen 650 mg 01/01/18 12:27 01/01/18 14:37 Tylenol - PO 650 mg Q4H PRN Administration FEVER Al Hydroxide/Mg Hydroxide 30 ml 01/01/18 12:27 Mylanta Oral Suspension - PO Q6H PRN DYSPEPSIA Aspirin 81 mg 01/02/18 10:00 01/28/18 10:39 Asa - PO 81 mg DAILY TRISTIN Administration Atorvastatin Calcium 10 mg 01/01/18 22:00 01/28/18 21:49 Lipitor - PO 10 mg HS TRISTIN Administration Digoxin 0.25 mg 01/02/18 10:00 01/28/18 10:37 Lanoxin - PO Not Given DAILY TRISTIN Diltiazem HCl 180 mg 01/02/18 10:00 01/28/18 10:39 Cardizem Cd - PO 180 mg DAILY TRISTIN Administration Diphenhydramine HCl 50 mg 01/09/18 14:13 01/28/18 21:49 Benadryl - PO 50 mg HS PRN Administration INSOMNIA Eucalyptus/Menthol/Phenol/Sorbitol 1 each 01/01/18 12:27 Cepastat Lozenge - MM Q4H PRN SORE THROAT Guaifenesin 10 ml 01/01/18 12:27 Robitussin Dm - PO Q6H PRN COUGH Ibuprofen 400 mg 01/01/18 12:27 01/19/18 13:58 Motrin - PO 400 mg Q6H PRN Administration Pain Level 4-6 Loperamide HCl 4 mg 01/01/18 12:27 Imodium - PO Q6H PRN DIARRHEA Magnesium Citrate 300 ml 01/01/18 12:27 Citroma - PO Q48H PRN CONSTIPATION Magnesium Hydroxide 30 ml 01/01/18 12:27 01/03/18 07:55 Milk Of Magnesia - PO 30 ml DAILY PRN Administration CONSTIPATION Melatonin 5 mg 01/01/18 22:00 01/08/18 21:53 Melatonin PO 5 mg HS PRN Administration INSOMNIA Nicotine Polacrilex 2 mg 01/01/18 12:27 Nicorette Gum - BUC Q2H PRN NICOTINE REPLACEMENT RX Multivit/Folic Acid/Iron 1 tab 01/02/18 10:00 01/28/18 10:39 Vitamins (Sjr) - PO 1 tab DAILY TRISTIN Administration Pseudoephedrine/Triprolidine 1 combo 01/01/18 12:27 Actifed - PO TID PRN NASAL CONGESTION Thiamine HCl 100 mg 01/01/18 22:00 01/28/18 21:49 Vitamin B1 - PO 100 mg HS TRISTIN Administration Current Side Effect: No Lab tests ordered: No Lab tests reviewed: Yes Provider note:: Patient has completed today his treatment and met his goals, will continue to address his issues at [facility] outpatient treatment program. Patient gained insights into importance of changing attitudes and utilization of supports available to prevent relapses. Patient was encouraged to continue maintain abstinence, he is stable for discharge today. Total face to face time:: 15 Mental Status Exam - Mental Status Exam Alert and Oriented to: Time, Place, Person Patient Appearance: Well Groomed Mood: Hopeful Affect: Appropriate, Mood Congruent Patient Behavior: Appropriate, Cooperative, Agitated Speech Pattern: Clear, Appropriate Voice Loudness: Normal Thought Process: Goal Oriented Thought Disorder: Not Present Hallucinations: Denies Suicidal Ideation: Denies Homicidal Ideation: Denies Insight/Judgement: Fair Sleep: Fair Appetite: Good Muscle strength/Tone: Normal Gait/Station: Normal Psychiatric Treatment Plan - Problem List (1) Alcohol dependence Current Visit: Yes (2) Afib Current Visit: No (3) MDD (major depressive disorder) Current Visit: No (4) Cocaine dependence, episodic Current Visit: Yes Comment: . (5) Nicotine dependence Current Visit: Yes Qualifiers: Nicotine product type: cigarettes Comment: .
[2018-01-29] MEDS: DIGOXIN 0.25 MG TABLET (FP) PO SCH (10:44)
[2018-01-29] MEDS: PRENATAL VITAMINS W/ FOLIC ACID TABLET (FP) PO SCH (10:44)
[2018-01-29] MEDS: ASPIRIN 81 MG CHEWABLE TABLETS PO SCH (10:44)
== END 2018-01-29 11:25 | disposition home or self-care (01) | DRG 895 ==
LOC: YASAS 11:54 → Y5N 12:27
PROVIDERS: ADMIT Psychiatry & Neurology Psychiatry; ATTEND Psychiatry & Neurology Psychiatry
PROC: HZ42ZZZ Group Counseling for Substance Abuse Treatment, Cognitive-Behavioral (ICD-10-PCS; principal; 2018-01-01)
DX: F10.20 Alcohol dependence, uncomplicated (principal); F33.9 Major depressive disorder, recurrent, unspecified; F17.210 Nicotine dependence, cigarettes, uncomplicated; J44.9 Chronic obstructive pulmonary disease, unspecified; G47.9 Sleep disorder, unspecified; Z96.651 Presence of right artificial knee joint; Z79.82 Long term (current) use of aspirin
CPT/HCPCS: J0735